=== PATIENT | male | born 1970 | race Caucasian/White ===

== ENCOUNTER 2017-03-03 16:06 | Emergency (ER) | payer MEDICARE ==
--- NOTE | 2017-03-03 17:45 | ERPHSYRPT ---
- History of Present Illness Time Seen by Provider: 03/03/17 17:39 Source: patient Exam Limitations: no limitations Patient Subjective Stated Complaint: pt he for headache that started about 1100 today was at rest when started, has migraines and is first time being seen in er for headache, sensitive to bright lights, nausea, Triage Nursing Assessment: pt alert,resp easy, skin w/d pink. pt walked in, pupils equal and reactive,moves all ext. well Physician History: Pt. with long hx. of migraines for more than 20yrs. Usually take meds for migraines, but did not work. States today with frontal throbbing headache radiate up to top of head, photophobia, associated with aura. Denied any recent illness, no cough, sinus congestion or drainage. No fever, chills, no chest or abdominal pain. No blurred vision, numbness/tingling or weakness of extremities. Pt. with CP and had R UE contracture and weakness Timing/Duration: today Quality: throbbing Head Pain Location: frontal, global Severity of Pain-Max: moderate Severity of Pain-Current: moderate Recent Head Trauma: no recent headache/trauma Modifying Factors: Improves With: exposure to light (worsens), noise (worsens) Associated Symptoms: nausea/vomiting, sensitive to light, No confusion, No dizziness, No fever/chills, No nasal congestion, No nasal drainage, No speech problems, No stiff neck Previous symptoms: same symptoms as today Home Medications: Levetiracetam [Keppra 500 mg ] 500 mg BID 03/03/17 [History] Hx Influenza Vaccination/Date Given: Yes Hx Pneumococcal Vaccination/Date Given: Yes Immunizations Up to Date: Yes - Review of Systems Constitutional: No Fever, No Chills Eyes: No Symptoms Ears, Nose, & Throat: No Symptoms Respiratory: No Cough, No Dyspnea Cardiac: No Chest Pain, No Edema, No Syncope Abdominal/Gastrointestinal: Nausea, Vomiting, No Abdominal Pain, No Diarrhea Genitourinary Symptoms: No Dysuria Musculoskeletal: No Back Pain, No Neck Pain Skin: No Rash Neurological: Headache, No Dizziness, No Focal Weakness, No Lethargy, No Paralysis, No Sensory Changes Psychological: No Symptoms Endocrine: No Symptoms All Other Systems: Reviewed and Negative - Past Medical History Neurological History: Seizures, Other Cardiac History: No Pertinent History, Hypertension Respiratory History: No Pertinent History Endocrine Medical History: No Pertinent History Musculoskeletal History: Other Other Medical History: R FOOT ANKLE SURGERY TO RECONSTRUCT ~ 5 YEARS AGO. CP - Past Surgical History Past Surgical History: Yes Other Surgical History: back sugery 02/07 - Social History Smoking Status: Never smoker Exposure to second hand smoke: No Drug Use: none Patient Lives Alone: No - Nursing Vital Signs Nursing Vital Signs: Initial Vital Signs Temperature 98.4 F Temperature Source Oral Pulse Rate 59 Respiratory Rate 80 Blood Pressure [Right Arm] 144/99 Pain Intensity 4 - Physical Exam General Appearance: no apparent distress Eye Exam: PERRL/EOMI Ears, Nose, Throat Exam: normal ENT inspection, moist mucous membranes Neck Exam: normal inspection, supple, full range of motion, No meningismus Respiratory Exam: normal breath sounds, lungs clear Cardiovascular Exam: regular rate/rhythm, normal heart sounds Gastrointestinal/Abdominal Exam: soft, No tenderness, No distention Back Exam: normal inspection, normal range of motion Mental Status Exam: alert, 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, 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 Exam: normal speech, PERRL, No facial droop Coordination/Gait Exam: normal cerebellar function Motor/Sensory Exam: no motor deficit, no sensory deficit, no pronator drift, negative Babinski's sign, weak motor strength RUE (baseline from CP), weak motor strength LLE (baseline from CP) DTR Exam: knee (R): 2+, knee (L): 2+ Skin Exam: normal color, warm, dry, No rash SpO2: 96 Oxygen Delivery: Room Air Ordered Tests: Active Orders 24 hr Category Date Time Status IV Insertion STAT Care 03/03/17 17:57 Active Medication Summary Discontinued Medications Generic Name Dose Route Start Last Admin Trade Name Monalisa PRN Reason Stop Dose Admin Diphenhydramine HCl 25 mg 03/03/17 17:50 03/03/17 18:07 Benadryl 50 Mg/Ml IV 03/03/17 17:51 25 mg STAT ONE Administration Diphenhydramine HCl Confirm 03/03/17 18:00 Benadryl 50 Mg/Ml Administered 03/03/17 18:01 Dose 50 mg .ROUTE .STK-MED ONE Ketorolac Tromethamine 30 mg 03/03/17 17:50 03/03/17 18:07 Toradol 30 Mg Injection IV 03/03/17 17:51 30 mg STAT ONE Administration Ketorolac Tromethamine Confirm 03/03/17 18:00 Toradol 30 Mg Injection Administered 03/03/17 18:01 Dose 30 mg .ROUTE .STK-MED ONE Prochlorperazine Edisylate 10 mg 03/03/17 17:50 03/03/17 18:07 Compazine 10 Mg/2 Ml IV 03/03/17 17:51 10 mg STAT ONE Administration Prochlorperazine Edisylate Confirm 03/03/17 18:00 Compazine 10 Mg/2 Ml Administered 03/03/17 18:01 Dose 10 mg .ROUTE .STK-MED ONE - Progress Progress: improved Air Movement: good Progress Note: 03/03/17 17:48 Pt. given Toradol, Benadryl and Compazine 03/03/17 19:03 Pt. feels much better and wants to go home Counseled pt/family regarding: diagnosis - Departure Time of Disposition: 19:04 Departure Disposition: Home Clinical Impression: Migraine Condition: Stable Critical Care Time: No Instructions: Headache Additional Instructions: Rest in quiet and dark room Return for worse headache, vomiting, dizziness or any problems Prescriptions: Prochlorperazine Maleate 10 mg [Compazine 10 mg] 10 mg PO Q6-8HPRN PRN #12 tablet PRN Reason: Vomiting
[2017-03-03] MEDS ORDERED: BENADRYL 50 MG/ML IV ONE (17:50)
[2017-03-03] MEDS ORDERED: Compazine 10 MG/2 ML IV ONE (17:50)
[2017-03-03] MEDS ORDERED: TORAdol 30 mg Injection IV ONE (17:50)
[2017-03-03] MEDS ORDERED: Compazine 10 MG/2 ML ONE (18:00)
[2017-03-03] MEDS ORDERED: BENADRYL 50 MG/ML ONE (18:00)
[2017-03-03] MEDS ORDERED: TORAdol 30 mg Injection ONE (18:00)
[2017-03-03 18:14] VITALS: PULSE 59
[2017-03-03 18:57] VITALS: BP 144/99
[2017-03-03 19:07] VITALS: O2SAT 96
== END 2017-03-03 19:11 | disposition home or self-care (01) ==
LOC: ED 16:06
DX: G43.909 Migraine, unspecified, not intractable, without status migrainosus (principal); R11.2 Nausea with vomiting, unspecified; R56.9 Unspecified convulsions
CPT/HCPCS: 36000; 96374; 96375; 99284; J1200; J1885

== ENCOUNTER 2017-03-06 18:41 | Emergency (ER) | payer MEDICARE ==
[2017-03-06] MEDS ORDERED: Hydromorphone 1 mg/ml Ampule IV ONE (19:04)
[2017-03-06] MEDS ORDERED: Zofran 4 MG/2 ML VIAL IV ONE (19:05)
[2017-03-06] MEDS ORDERED: Sodium Chloride 0.9% 1000 ML 1,000 ML IV SCH (19:15)
--- NOTE | 2017-03-06 19:15 | ERPHSYRPT ---
- History of Present Illness Time Seen by Provider: 03/06/17 18:55 Source: patient Exam Limitations: clinical condition Patient Subjective Stated Complaint: PT REPORTS HX OF MIGRAINES-STATES THIS ONE BEGAN JAVY 3 HRS AGO-STATES THERE IS NO DIFFERENCE BETWEEN THIS ONE ET HIS USUAL MIGRAINES-VOMIT X 1-DENIES NUMBNES SOR TINLGING Triage Nursing Assessment: PT PINK WARM ET [id number] ALL QEUSTIONS APPRIPRIATELY-PT ABLE TO MOVE ALL EXTREMITY NORMAL FOR PT-NO FACIAL DROOP NOTED Physician History: PATIENT WITH HISTORY OF MIGRAINE HEADACHES FOR 20 YEARS, COMPLAINS OF GENERALIZED HEADACHE, SINCE THIS AM, EVALUATED IN EMERGENCY 5 DAYS AGO. STATES HE HAS NO RELIED AFTER IMITREX TODAY. HAS ASSOCIATED PHOTOBIA, DENIES BLURRED SPEECH, NECK STIFFNESS, FEVER OR DIZZINESS, Timing/Duration: today Quality: throbbing Head Pain Location: frontal, temporal, occipital Severity of Pain-Max: severe Severity of Pain-Current: severe Recent Head Trauma: frequent headaches Modifying Factors: Improves With: exposure to light Previous symptoms: same symptoms as today Allergies/Adverse Reactions: No Known Drug Allergies Allergy (Unverified 03/06/17 18:50) Home Medications: Levetiracetam [Keppra 500 mg ] 500 mg PO BID 03/03/17 [History] Hx Tetanus, Diphtheria Vaccination/Date Given: Yes Hx Influenza Vaccination/Date Given: Yes Hx Pneumococcal Vaccination/Date Given: Yes Immunizations Up to Date: Yes - Review of Systems Constitutional: No Fever, No Chills Eyes: No Symptoms Ears, Nose, & Throat: No Symptoms Respiratory: No Symptoms, No Cough, No Dyspnea Cardiac: No Symptoms, No Chest Pain, No Edema, No Syncope Abdominal/Gastrointestinal: No Symptoms, Appetite Changes, No Abdominal Pain, No Nausea, No Vomiting, No Diarrhea Genitourinary Symptoms: No Dysuria Musculoskeletal: No Symptoms, No Back Pain, No Neck Pain Skin: No Symptoms, No Rash Neurological: Headache, No Dizziness, No Focal Weakness, No Sensory Changes Psychological: No Symptoms Endocrine: No Symptoms All Other Systems: Reviewed and Negative - Past Medical History Pertinent Past Medical History: Yes Neurological History: Seizures, Other Cardiac History: No Pertinent History, Hypertension Respiratory History: No Pertinent History Endocrine Medical History: No Pertinent History Musculoskeletal History: Other Other Medical History: R FOOT ANKLE SURGERY TO RECONSTRUCT ~ 5 YEARS AGO. CP - Past Surgical History Past Surgical History: Yes Other Surgical History: back sugery 02/07 - Social History Smoking Status: Never smoker Exposure to second hand smoke: No Drug Use: none Patient Lives Alone: No - Nursing Vital Signs Nursing Vital Signs: Initial Vital Signs Temperature 98.2 F Temperature Source Oral Pulse Rate 72 Respiratory Rate 16 Blood Pressure [Right Arm] 137/97 Pain Intensity 7 - Physical Exam General Appearance: no apparent distress Eye Exam: PERRL/EOMI Ears, Nose, Throat Exam: normal ENT inspection, moist mucous membranes Neck Exam: normal inspection, non-tender, supple, full range of motion, No meningismus Respiratory Exam: normal breath sounds, lungs clear Cardiovascular Exam: regular rate/rhythm, normal heart sounds Gastrointestinal/Abdominal Exam: soft, No tenderness, No distention Back Exam: normal inspection, normal range of motion Extremity Exam: normal inspection Mental Status Exam: alert, 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, 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: normal speech, PERRL, No facial droop Coordination/Gait Exam: normal cerebellar function Motor/Sensory Exam: no motor deficit, no sensory deficit DTR Exam: bicep (R): 2+, bicep (L): 2+, tricep (R): 2+, tricep (L): 2+, knee (R) : 2+, knee (L): 2+, ankle (R): 2+, ankle (L): 2+ Skin Exam: normal color, warm, dry, No rash SpO2 Interpretation: normal SpO2: 99 Oxygen Delivery: Room Air - CT Exams Head CT Interpretation: Tele-radiologist Report (STABLE CONGENITAL BRAIN MALFORMATION , 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 WITH HEMISPHERIC ASYMMETRY) Ordered Tests: Active Orders 24 hr Category Date Time Status IV Insertion STAT Care 03/06/17 19:08 Active HEAD WITHOUT CONTRAST [CT] Stat Exams 03/06/17 19:10 Taken Medication Summary Generic Name Dose Route Start Last Admin Trade Name Freq PRN Reason Stop Dose Admin Sodium Chloride 1,000 mls @ 100 mls/hr 03/06/17 19:15 03/06/17 19:20 Sodium Chloride 0.9% 1000 Ml IV 04/05/17 19:14 100 mls/hr .Q10H MARKO Administration Discontinued Medications Generic Name Dose Route Start Last Admin Trade Name Freq PRN Reason Stop Dose Admin Hydromorphone HCl 1 mg 03/06/17 19:04 03/06/17 19:20 Hydromorphone 1 Mg/Ml Ampule IV 03/06/17 19:05 1 mg STAT ONE Administration Hydromorphone HCl Confirm 03/06/17 19:17 Hydromorphone 1 Mg/Ml Ampule Administered 03/06/17 19:18 Dose 1 mg .ROUTE .STK-MED ONE Ondansetron HCl 4 mg 03/06/17 19:05 03/06/17 19:20 Zofran 4 Mg/2 Ml Vial IV 03/06/17 19:06 4 mg STAT ONE Administration Ondansetron HCl Confirm 03/06/17 19:17 Zofran 4 Mg/2 Ml Vial Administered 03/06/17 19:18 Dose 4 mg .ROUTE .STK-MED ONE - Progress Progress: improved Progress Note: 03/06/17 20:01 PATIENT GIVEN IV NORMAL SALINE 100ML/HR, ZOFRAN 4MG, DILAUDID 1MG IV Blood Culture(s) Obtained: No Counseled pt/family regarding: diagnosis, need for follow-up, rad results - Departure Time of Disposition: 21:35 Departure Disposition: Home Clinical Impression: MIGRAINE CEPHALGIA Condition: Stable Critical Care Time: No Referrals: ARCHIE SIDHU [Primary Care Provider] - Instructions: Headache Additional Instructions: ULTRAM 50MG EVERY 4 HOURS FOR PAIN NEEDED. CONSULT YOUR FAMILY PHYSICIAN AND NEUROLOGIST FOR FOLLOWUP. Prescriptions: Tramadol HCl 50 mg [Ultram 50 mg] 50 mg PO Q4HPRN PRN #10 tablet PRN Reason: Pain
[2017-03-06] MEDS ORDERED: Sodium Chloride 0.9% 1000 ML 1,000 ML ONE (19:17)
[2017-03-06] MEDS ORDERED: Hydromorphone 1 mg/ml Ampule ONE (19:17)
[2017-03-06] MEDS ORDERED: Zofran 4 MG/2 ML VIAL ONE (19:17)
[2017-03-06] MEDS ORDERED: TORAdol 30 mg Injection IV ONE (20:22)
[2017-03-06] MEDS ORDERED: TORAdol 30 mg Injection ONE (20:27)
[2017-03-06 20:47] VITALS: BP 124/92; PULSE 64; O2SAT 97
--- NOTE | 2017-03-07 08:40 | XRAY ---
Indication: Migraine headache. History of seizure. Multiple contiguous axial images obtained through the head without contrast. Comparison: June 03, 2011. Again the right cerebral hemisphere is larger than the left. Stable asymmetric right lateral ventricle enlargement, corpus callosal agenesis/hypogenesis, and left hemispheric subfalcine extension into the right hemisphere. No acute intracranial hemorrhage or abnormal extra-axial fluid collection. Fourth ventricle is midline. Bony calvarium intact. Visualized paranasal sinuses and mastoid air cells are pneumatized and clear. Impression: 1. Stable congenital brain malformation as detailed. 2. No new or acute intracranial abnormalities. Comment: Preliminary interpretation was made by [facility]. No discrepancy. CTDI 67.60
== END 2017-03-06 20:47 | disposition home or self-care (01) ==
LOC: ED 18:41
DX: G43.909 Migraine, unspecified, not intractable, without status migrainosus (principal); Z87.898 Personal history of other specified conditions
CPT/HCPCS: 36000; 70450; 96360; 96374; 96375; 99284; J1170; J1885; J2405

== ENCOUNTER 2017-03-10 19:54 | Emergency (ER) | payer MEDICARE ==
[2017-03-10] MEDS ORDERED: Sodium Chloride 0.9% 1000 ML 1,000 ML IV STA (20:30)
[2017-03-10] MEDS ORDERED: Compazine 10 MG/2 ML IV ONE (20:30)
[2017-03-10] MEDS ORDERED: BENADRYL 50 MG/ML IV ONE (20:30)
[2017-03-10] MEDS ORDERED: DECADRON 10MG INJ. IV ONE (20:31)
--- NOTE | 2017-03-10 20:36 | ERPHSYRPT ---
- History of Present Illness Time Seen by Provider: 03/10/17 20:22 Source: patient Patient Subjective Stated Complaint: pt here for headache, pt has chronic headaches,states is unrelieved by meds Triage Nursing Assessment: pt alert, walked in, resp easy, skin w/d. pupils equal Physician History: CC: headache hx: 46 y/o patient of HALLE Sidhu and Dr Larson. He has hx of migraine headaches for 20 years. Worse in past 3 weeks. He has daily headache. Photophobia. No fever or chills. No N/T/W. No injury. He took his imitrex twice today and had no relief so came to ER. He has been to ER twice in past three weeks. He felt better after meds briefly. He takes vimpat and keppra for seizures. Headache persists today so came to ER. Headache typical for his normal headaches. Timing/Duration: week(s) (3) Head Pain Location: global Severity of Pain-Max: severe Severity of Pain-Current: severe Recent Head Trauma: no recent headache/trauma Allergies/Adverse Reactions: No Known Drug Allergies Allergy (Verified 03/10/17 20:06) Home Medications: Levetiracetam [Keppra 500 mg ] 500 mg PO BID 03/03/17 [History] Hx Tetanus, Diphtheria Vaccination/Date Given: Yes Hx Influenza Vaccination/Date Given: Yes Hx Pneumococcal Vaccination/Date Given: Yes Immunizations Up to Date: Yes - Review of Systems Constitutional: No Fever, No Chills Eyes: Photophobia, No Vision Changes Ears, Nose, & Throat: No Symptoms Respiratory: No Symptoms Cardiac: No Symptoms Abdominal/Gastrointestinal: Nausea, No Vomiting Musculoskeletal: No Back Pain, No Neck Pain Skin: No Rash Neurological: Headache, No Dizziness, No Focal Weakness, No Parasthesia All Other Systems: Reviewed and Negative - Past Medical History Pertinent Past Medical History: Yes Neurological History: Seizures, Other Cardiac History: No Pertinent History, Hypertension Respiratory History: No Pertinent History Endocrine Medical History: No Pertinent History Musculoskeletal History: Other Other Medical History: R FOOT ANKLE SURGERY TO RECONSTRUCT ~ 5 YEARS AGO. CP - Past Surgical History Past Surgical History: Yes Other Surgical History: back sugery 02/07 - Social History Smoking Status: Never smoker Exposure to second hand smoke: No Drug Use: none Patient Lives Alone: No - Nursing Vital Signs Nursing Vital Signs: Initial Vital Signs Temperature 98.4 F Temperature Source Oral Pulse Rate 80 Respiratory Rate 16 Blood Pressure [Right Arm] 155/86 Pain Intensity 9 - Physical Exam General Appearance: alert Eye Exam: PERRL/EOMI Ears, Nose, Throat Exam: normal ENT inspection, moist mucous membranes Neck Exam: normal inspection, non-tender, supple Respiratory Exam: normal breath sounds, lungs clear Cardiovascular Exam: regular rate/rhythm, No murmur Gastrointestinal/Abdominal Exam: soft, No tenderness, No distention Extremity Exam: normal inspection, normal range of motion Mental Status Exam: alert, 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, 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 Exam: normal hearing, normal speech, PERRL Motor/Sensory Exam: no motor deficit, no sensory deficit Skin Exam: normal color, warm, dry, No rash SpO2 Interpretation: normal SpO2: 95 Oxygen Delivery: Room Air - Course Nursing assessment & vital signs reviewed: Yes Ordered Tests: Active Orders 24 hr Category Date Time Status IV Insertion STAT Care 03/10/17 20:30 Active Oxygen-ED Only NON-REBREATHER 100% Care 03/10/17 20:30 Active CBC W DIFF Stat Lab 03/10/17 20:35 Completed CMP Stat Lab 03/10/17 20:35 Completed Erythrocyte Sedimentation Rate Stat Lab 03/10/17 20:35 Completed VENOUS BLOOD GAS Urgent Lab 03/10/17 20:30 Completed Medication Summary Generic Name Dose Route Start Last Admin Trade Name Freq PRN Reason Stop Dose Admin Sodium Chloride 1,000 mls @ 999 mls/hr 03/10/17 20:30 03/10/17 20:47 Sodium Chloride 0.9% 1000 Ml IV 03/10/17 21:30 999 mls/hr .Q1H1M STA Administration Discontinued Medications Generic Name Dose Route Start Last Admin Trade Name Freq PRN Reason Stop Dose Admin Dexamethasone Sodium Phosphate 10 mg 03/10/17 20:31 03/10/17 20:47 Decadron 10mg Inj. IV 03/10/17 20:32 10 mg STAT ONE Administration Dexamethasone Sodium Phosphate Confirm 03/10/17 20:41 Decadron 10mg Inj. Administered 03/10/17 20:42 Dose 10 mg .ROUTE .STK-MED ONE Diphenhydramine HCl 25 mg 03/10/17 20:30 03/10/17 20:46 Benadryl 50 Mg/Ml IV 03/10/17 20:31 25 mg STAT ONE Administration Diphenhydramine HCl Confirm 03/10/17 20:40 Benadryl 50 Mg/Ml Administered 03/10/17 20:41 Dose 50 mg .ROUTE .STK-MED ONE Sodium Chloride Confirm 03/10/17 20:41 Sodium Chloride 0.9% 1000 Ml Administered 03/10/17 20:42 Dose 1,000 mls @ ud .ROUTE .STK-MED ONE Prochlorperazine Edisylate 10 mg 03/10/17 20:30 03/10/17 20:47 Compazine 10 Mg/2 Ml IV 03/10/17 20:31 10 mg STAT ONE Administration Prochlorperazine Edisylate Confirm 03/10/17 20:41 Compazine 10 Mg/2 Ml Administered 03/10/17 20:42 Dose 10 mg .ROUTE .STK-MED ONE Lab/Rad Data: Laboratory Result Diagrams 03/10/17 20:35 03/10/17 20:35 Laboratory Results 03/10/17 03/10/17 03/10/17 Range/Units 20:35 20:35 20:30 WBC 7.5 (4.0-10.5) K/mm3 RBC 4.42 (4.1-5.6) M/mm3 Hgb 14.2 (12.5-18.0) gm/dl Hct 41.0 L (42-50) % MCV 92.8 (78-100) fl MCH 32.1 H (26-32) pg MCHC 34.6 (32-36) g/dl RDW 12.1 (11.5-14.0) % Plt Count 193 (150-450) K/mm3 MPV 10.2 H (6-9.5) fl Gran % 53.2 (36.0-66.0) % Lymphocytes % 36.8 (24.0-44.0) % Monocytes % 7.3 (0.0-12.0) % Eosinophils % 2.4 (0.00-5.0) % Basophils % 0.3 (0.0-0.4) % Basophils # 0.02 (0-0.4) ESR 4 (0-15) mm/hr VBG pH 7.42 (7.32-7.42) VBG pCO2 at Pat Temp 42 (42-55) mm/Hg VBG pO2 at Pat Temp 67 H (25-40) mm/Hg VBG HCO3 27.2 (22-28) meq/L VBG O2 Sat (Giuseppe) 97.0 (95-100) VBG Base Excess 2.4 H (-2.0-2.0) VBG Hemoglobin 14.5 VBG Carboxyhemoglobin 1.8 (0.0-6.9) % T HGB POC Potassium 3.1 L (3.5-5.1) Sodium 143 (136-145) mEq/L Potassium 3.2 L (3.5-5.1) mEq/L Chloride 107 (98-107) mEq/L Carbon Dioxide 26.6 (21-32) mEq/L Anion Gap 13.0 (5-15) MEQ/L BUN 22 H (9-20) mg/dL Creatinine 1.44 H (0.55-1.30) mg/dl Estimated GFR 56 ML/MIN Glucose 130 H (70-110) MG/DL Calcium 8.7 (8.5-10.1) mg/dL Total Bilirubin 0.3 (0.2-1.0) mg/dL AST 18 (15-37) U/L ALT 31 (12-78) U/L Alkaline Phosphatase 71 (46-116) U/L Serum Total Protein 7.1 (6.4-8.2) gm/dL Albumin 3.6 (3.4-5.0) g/dL - Progress Progress Note: 03/10/17 20:35 Will try oxygen. No eye redness or wateriness to suggest clusters but this does seem like a cluster in time. 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 He tolerated benadryl and compazine in past visit. Will repeat and will add decadron. 03/10/17 21:12 Headache better with meds. No change with O2. IVF given. Will release. Advised he follow up with HALLE Sidhu regarding creat and Dr Larson regarding headaches. Counseled pt/family regarding: lab results, diagnosis, need for follow-up - Departure Time of Disposition: 21:13 Departure Disposition: Home Clinical Impression: Headache Qualifiers: Headache type: new daily persistent Qualified Code(s): G44.52 - New daily persistent headache (NDPH) Condition: Stable Critical Care Time: No Referrals: ARCHIE SIDHU [Primary Care Provider] - DAVE LARSON [CONSULTING PHYSICIAN] - Instructions: Headache Additional Instructions: HEADACHE 1. After discharge from the emergency department, you should rest at home in a cool, dark, quiet place for 12-24 hours. 2. If any of the following signs or symptoms are noticed, you should be re- evaluated right away: A. Visual changes B. Stiff Neck C. Change in quality or location of pain D. Fever E. Recurrent vomiting 3. If pain medications were prescribed or given, they may cause drowsiness. Call to see HALLE Sidhu regarding kidney test. Call to see Dr Larson regarding headaches.
[2017-03-10] MEDS ORDERED: BENADRYL 50 MG/ML ONE (20:40)
[2017-03-10] MEDS ORDERED: Sodium Chloride 0.9% 1000 ML 1,000 ML ONE (20:41)
[2017-03-10] MEDS ORDERED: DECADRON 10MG INJ. ONE (20:41)
[2017-03-10] MEDS ORDERED: Compazine 10 MG/2 ML ONE (20:41)
[2017-03-10 20:42] LABS: BASOPHIL % 0.3 % (0.0-0.4); Eosinophil % 2.4 % (0.00-5.0); Granulocytes % 53.2 % (36.0-66.0); Lymphocytes % 36.8 % (24.0-44.0); Mean Cell Volume 92.8 fl (78-100); Mean Corpuscular Hemoglobin 32.1 pg (26-32); Mean Platelet Volume 10.2 fl (6-9.5); Monocytes % 7.3 % (0.0-12.0); Platelet Count 193 K/mm3 (150-450); Red Blood Count 4.42 M/mm3 (4.1-5.6); Red Cell Distribution Width 12.1 % (11.5-14.0); White Blood Count 7.5 K/mm3 (4.0-10.5)
[2017-03-10 20:49] LABS: VBG BASE EXCESS 2.4 (-2.0-2.0); VBG CARBOXYHEMOGLOBIN 1.8 % T HGB (0.0-6.9); VBG HCO3- 27.2 meq/L (22-28); VBG HEMOGLOBIN 14.5; VBG POTASSIUM 3.1 (3.5-5.1); VBG pH 7.42 (7.32-7.42)
[2017-03-10 20:50] VITALS: BP 155/86; PULSE 80
[2017-03-10 20:58] LABS: Erythrocyte Sedimentation Rate 4 mm/hr (0-15)
[2017-03-10 21:02] LABS: ALBUMIN 3.6 g/dL (3.4-5.0); BILIRUBIN,TOTAL 0.3 mg/dL (0.2-1.0); Carbon Dioxide 26.6 mEq/L (21-32); Potassium 3.2 mEq/L (3.5-5.1); Total Protein 7.1 gm/dL (6.4-8.2)
[2017-03-10 21:14] VITALS: O2SAT 95
== END 2017-03-10 21:20 | disposition home or self-care (01) ==
LOC: ED 19:54
DX: G44.52 New daily persistent headache (NDPH) (principal); Z87.898 Personal history of other specified conditions
CPT/HCPCS: 36000; 36415; 80053; 82805; 85025; 85652; 96360; 96374; 96375; 99284; J1100; J1200

== ENCOUNTER 2017-03-13 15:43 | Emergency (ER) | payer MEDICARE ==
[2017-03-13] MEDS ORDERED: BENADRYL 50 MG/ML IV ONE (16:07)
[2017-03-13] MEDS ORDERED: Compazine 10 MG/2 ML IV ONE (16:07)
[2017-03-13] MEDS ORDERED: Sodium Chloride 0.9% 1000 ML 1,000 ML IV STA (16:07)
[2017-03-13] MEDS ORDERED: Compazine 10 MG/2 ML ONE (16:11)
[2017-03-13] MEDS ORDERED: BENADRYL 50 MG/ML ONE (16:11)
[2017-03-13] MEDS ORDERED: Sodium Chloride 0.9% 1000 ML 1,000 ML ONE (16:11)
--- NOTE | 2017-03-13 16:13 | ERPHSYRPT ---
- History of Present Illness Time Seen by Provider: 03/13/17 15:55 Source: patient Patient Subjective Stated Complaint: headache since this morning Triage Nursing Assessment: all over top of head and behind eyes since this morning. no blurred or double vision. nausea with vomiting x1. was seen last week in er for same s/s--did not follow up with pcp Physician History: CC: headache Hx: 46 y/o patient of HALLE Sidhu and Dr Larson. He has hx of migraine headaches. He uses imitrex. He has hx of seizure disorder and takes medication. 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 He has had worsened headaches for the past 3-4 weeks. He has been to ER twice. Had normal labs. He had CT showing agenesis of corpus collosum but nothing acute. Timing/Duration: gradual onset (today worse again and no relieved with imitrex X 2) Allergies/Adverse Reactions: No Known Drug Allergies Allergy (Verified 03/13/17 15:52) Home Medications: Levetiracetam [Keppra 500 mg ] 500 mg PO BID 03/03/17 [History] Lacosamide [Vimpat] 150 mg PO BID 03/13/17 [History] Losartan Potassium 50 mg [Cozaar 50 MG] 50 mg PO DAILY 03/13/17 [History] Sumatriptan Succinate [Imitrex] 100 mg PO UD 03/13/17 [History] Hx Tetanus, Diphtheria Vaccination/Date Given: Yes Hx Influenza Vaccination/Date Given: Yes Hx Pneumococcal Vaccination/Date Given: Yes Immunizations Up to Date: Yes - Review of Systems Constitutional: No Fever, No Chills Eyes: Vision Changes (blurry) Respiratory: No Symptoms Cardiac: No Symptoms Abdominal/Gastrointestinal: Nausea, No Vomiting Skin: No Decubiti, No Rash Neurological: Headache, No Focal Weakness, No Parasthesia All Other Systems: Reviewed and Negative - Past Medical History Pertinent Past Medical History: Yes Neurological History: Seizures, Other ENT History: No Pertinent History Cardiac History: No Pertinent History, Hypertension Respiratory History: No Pertinent History Endocrine Medical History: No Pertinent History Musculoskeletal History: Other Other Medical History: R FOOT ANKLE SURGERY TO RECONSTRUCT ~ 5 YEARS AGO. CP - Past Surgical History Past Surgical History: Yes Other Surgical History: [facility] - Social History Smoking Status: Never smoker Exposure to second hand smoke: No Drug Use: none Patient Lives Alone: No - Nursing Vital Signs Nursing Vital Signs: Initial Vital Signs Temperature 97.7 F Temperature Source Oral Pulse Rate 55 Respiratory Rate 18 Blood Pressure [Left Arm] 137/75 Pain Intensity 8 - Physical Exam General Appearance: alert Eye Exam: PERRL/EOMI Ears, Nose, Throat Exam: normal ENT inspection, moist mucous membranes Neck Exam: normal inspection, non-tender, supple Respiratory Exam: normal breath sounds Cardiovascular Exam: regular rate/rhythm Gastrointestinal/Abdominal Exam: soft, No tenderness, No distention Extremity Exam: normal inspection, normal range of motion Mental Status Exam: alert, 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, cooperative Motor/Sensory Exam: no motor deficit, no sensory deficit Skin Exam: warm, dry SpO2 Interpretation: normal SpO2: 97 Oxygen Delivery: Room Air - Course Nursing assessment & vital signs reviewed: Yes Ordered Tests: Active Orders 24 hr Category Date Time Status IV Insertion STAT Care 03/13/17 16:07 Active Oxygen-ED Only NON-REBREATHER 100% Care 03/13/17 16:07 Active Medication Summary Generic Name Dose Route Start Last Admin Trade Name Freq PRN Reason Stop Dose Admin Sodium Chloride 1,000 mls @ 999 mls/hr 03/13/17 16:07 03/13/17 16:14 Sodium Chloride 0.9% 1000 Ml IV 03/13/17 17:07 999 mls/hr .Q1H1M STA Administration Discontinued Medications Generic Name Dose Route Start Last Admin Trade Name Freq PRN Reason Stop Dose Admin Diphenhydramine HCl 25 mg 03/13/17 16:07 03/13/17 16:13 Benadryl 50 Mg/Ml IV 03/13/17 16:08 25 mg STAT ONE Administration Diphenhydramine HCl Confirm 03/13/17 16:11 Benadryl 50 Mg/Ml Administered 03/13/17 16:12 Dose 50 mg .ROUTE .STK-MED ONE Sodium Chloride Confirm 03/13/17 16:11 Sodium Chloride 0.9% 1000 Ml Administered 03/13/17 16:12 Dose 1,000 mls @ ud .ROUTE .STK-MED ONE Prochlorperazine Edisylate 10 mg 03/13/17 16:07 03/13/17 16:13 Compazine 10 Mg/2 Ml IV 03/13/17 16:08 10 mg STAT ONE Administration Prochlorperazine Edisylate Confirm 03/13/17 16:11 Compazine 10 Mg/2 Ml Administered 03/13/17 16:12 Dose 10 mg .ROUTE .STK-MED ONE - Progress Progress Note: 03/13/17 16:13 No sign of acute problem. Appears more like exacerbation of migraines or cluster headaches. He had decadron last visit. He gets improvement with compazine and benadryl. 03/13/17 16:57 Headache gone after meds. No nuchal rigidity. No fever. Advised call Dr Larson tomorrow for further headache care. Counseled pt/family regarding: diagnosis, need for follow-up - Departure Time of Disposition: 16:58 Departure Disposition: Home Clinical Impression: Headache Qualifiers: Headache type: unspecified Headache chronicity pattern: episodic headache Intractability: intractable Qualified Code(s): R51 - Headache Condition: Stable Critical Care Time: No Referrals: ARCHIE SIDHU [Primary Care Provider] - DAVE LARSON [CONSULTING PHYSICIAN] - Instructions: Headache Additional Instructions: HEADACHE 1. After discharge from the emergency department, you should rest at home in a cool, dark, quiet place for 12-24 hours. 2. If any of the following signs or symptoms are noticed, you should be re- evaluated right away: A. Visual changes B. Stiff Neck C. Change in quality or location of pain D. Fever E. Recurrent vomiting 3. If pain medications were prescribed or given, they may cause drowsiness. No driving tonite. Call Dr Larson tomorrow. Return for fever or confusion.
[2017-03-13 17:07] VITALS: BP 132/69; PULSE 69; O2SAT 98
== END 2017-03-13 17:05 | disposition home or self-care (01) ==
LOC: ED 15:43
DX: R51 Headache (principal); R11.2 Nausea with vomiting, unspecified; R56.9 Unspecified convulsions; Z79.899 Other long term (current) drug therapy
CPT/HCPCS: 36000; 96360; 96374; 96375; 99282; 99284; J1200

== ENCOUNTER 2017-03-22 14:39 | Emergency (ER) | payer MEDICARE ==
[2017-03-22] MEDS ORDERED: LOPRESSOR 5 MG/5 ML INJECTION IV ONE ×2 (14:49→14:57)
[2017-03-22] MEDS ORDERED: Nitrostat 0.4 MG (ED) SL ONE ×2 (14:49→15:22)
[2017-03-22] MEDS ORDERED: BABY ASPIRIN 81 MG CHEW PO ONE (14:49)
--- NOTE | 2017-03-22 14:51 | ERPHSYRPT ---
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 STATES PAIN SCALE 10/10. Timing/Duration: today Activities at Onset: none Quality: sharpness Location: substernal Chest Pain Radiation: no radiation Severity of Pain-Max: severe Severity of Pain-Current: severe Modifying Factors: Improves With: nothing Associated Symptoms: shortness of breath, diaphoresis Prior Chest Pain/Cardiac Workup: angina, cardiac cath Nitro Today/Relief: no nitro taken today, provided by ED Aspirin Treatment Today: no aspirin today, 81 mg x 4, provided by ED Allergies/Adverse Reactions: No Known Drug Allergies Allergy (Verified 03/22/17 14:45) Home Medications: Levetiracetam [Keppra 500 mg ] 500 mg PO BID 03/03/17 [History] Lacosamide [Vimpat] 150 mg PO BID 03/13/17 [History] Losartan Potassium 50 mg [Cozaar 50 MG] 50 mg PO DAILY 03/13/17 [History] Sumatriptan Succinate [Imitrex] 100 mg PO UD 03/13/17 [History] Hx Tetanus, Diphtheria Vaccination/Date Given: Yes Hx Influenza Vaccination/Date Given: Yes Hx Pneumococcal Vaccination/Date Given: Yes Immunizations Up to Date: Yes - Review of Systems Constitutional: No Fever, No Chills Eyes: No Symptoms Ears, Nose, & Throat: No Symptoms Respiratory: Dyspnea, No Cough Cardiac: Chest Pain, No Edema, No Syncope Abdominal/Gastrointestinal: No Symptoms, No Abdominal Pain, No Nausea, No Vomiting, No Diarrhea Genitourinary Symptoms: No Symptoms, No Dysuria Musculoskeletal: No Symptoms, No Back Pain, No Neck Pain Skin: No Symptoms, No Rash Neurological: No Dizziness, No Focal Weakness, No Sensory Changes Psychological: No Symptoms Endocrine: No Symptoms All Other Systems: Reviewed and Negative - Past Medical History Pertinent Past Medical History: Yes Neurological History: Seizures, Other ENT History: No Pertinent History Cardiac History: No Pertinent History, Hypertension Respiratory History: No Pertinent History Endocrine Medical History: No Pertinent History Musculoskeletal History: Other Other Medical History: R FOOT ANKLE SURGERY TO RECONSTRUCT ~ 5 YEARS AGO. CP - Past Surgical History Past Surgical History: Yes Other Surgical History: back sugery 02/07 - Social History Smoking Status: Never smoker Exposure to second hand smoke: No Drug Use: none Patient Lives Alone: No - Nursing Vital Signs Nursing Vital Signs: Initial Vital Signs Temperature 98.5 F Temperature Source Oral Pulse Rate [] 80 Pulse Rate 59 Respiratory Rate 20 Blood Pressure [] 120/77 Pain Intensity 4 - Physical Exam General Appearance: no apparent distress, alert Eye Exam: PERRL/EOMI, eyes nml inspection Ears, Nose, Throat Exam: normal ENT inspection, moist mucous membranes Neck Exam: normal inspection, non-tender, supple, full range of motion Respiratory Exam: normal breath sounds, lungs clear, No respiratory distress Cardiovascular Exam: regular rate/rhythm, normal heart sounds Gastrointestinal/Abdomen Exam: soft, No tenderness, No mass Back Exam: normal inspection, No CVA tenderness, No vertebral tenderness Extremity Exam: normal inspection, normal range of motion Neurologic Exam: alert, 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, cooperative, normal mood/affect, sensation nml, No motor deficits Skin Exam: normal color, warm, dry SpO2: 97 Oxygen Delivery: Room Air - Course EKG Interpreted by Me: RATE, Sinus Rhythm, Sinus Tach, NORMAL AXIS, Non- specific ST Changes - Radiology Exams Chest X-ray Interpretation: Discussed w/ radiologist, Negative Ordered Tests: Medication Summary Discontinued Medications Generic Name Dose Route Start Last Admin Trade Name Jhonq PRN Reason Stop Dose Admin Aspirin 324 mg 03/22/17 14:49 03/22/17 14:55 Baby Aspirin 81 Mg Chew PO 03/22/17 14:50 324 mg STAT ONE Administration Sodium Chloride 1,000 mls @ 100 mls/hr 03/22/17 15:00 03/22/17 14:59 Sodium Chloride 0.9% 1000 Ml IV 04/21/17 14:59 100 mls/hr .Q10H MARKO Administration Sodium Chloride Confirm 03/22/17 14:57 Sodium Chloride 0.9% 1000 Ml Administered 03/22/17 14:58 Dose 1,000 mls @ ud .ROUTE .STK-MED ONE Metoprolol Tartrate 5 mg 03/22/17 14:49 03/22/17 14:59 Lopressor 5 Mg/5 Ml Injection IV 03/22/17 14:50 5 mg STAT ONE Administration Metoprolol Tartrate Confirm 03/22/17 14:57 Lopressor 5 Mg/5 Ml Injection Administered 03/22/17 14:58 Dose 5 mg IV .STK-MED ONE Morphine Sulfate 8 mg 03/22/17 15:22 03/22/17 15:32 Morphine Sulfate 10 Mg/Ml IV 03/22/17 15:23 8 mg STAT ONE Administration Morphine Sulfate Confirm 03/22/17 15:29 Morphine Sulfate 10 Mg/Ml Administered 03/22/17 15:30 Dose 10 mg .ROUTE .STK-MED ONE Nitroglycerin 0.4 mg 03/22/17 14:49 03/22/17 14:55 Nitrostat 0.4 Mg (Ed) SL 03/22/17 14:50 0.4 mg STAT ONE Administration Nitroglycerin 0.4 mg 03/22/17 15:22 03/22/17 15:27 Nitrostat 0.4 Mg (Ed) SL 03/22/17 15:23 0.4 mg STAT ONE Administration Nitroglycerin 1 gm 03/22/17 16:20 03/22/17 16:26 Nitro-Bid 2% Ud Packets TOP 03/22/17 16:21 1 gm STAT ONE Administration Nitroglycerin Confirm 03/22/17 16:24 Nitro-Bid 2% Ud Packets Administered 03/22/17 16:25 Dose 1 gm .ROUTE .STK-MED ONE Ondansetron HCl 4 mg 03/22/17 15:22 03/22/17 15:32 Zofran 4 Mg/2 Ml Vial IV 03/22/17 15:23 4 mg STAT ONE Administration Ondansetron HCl Confirm 03/22/17 15:28 Zofran 4 Mg/2 Ml Vial Administered 03/22/17 15:29 Dose 4 mg .ROUTE .STK-MED ONE Lab/Rad Data: Laboratory Result Diagrams 03/22/17 14:45 03/22/17 14:45 Laboratory Results 03/22/17 03/22/17 03/22/17 Range/Units 14:45 14:45 14:45 WBC (4.0-10.5) K/mm3 RBC (4.1-5.6) M/mm3 Hgb (12.5-18.0) gm/dl Hct (42-50) % MCV (78-100) fl MCH (26-32) pg MCHC (32-36) g/dl RDW (11.5-14.0) % Plt Count (150-450) K/mm3 MPV (6-9.5) fl Gran % (36.0-66.0) % Lymphocytes % (24.0-44.0) % Monocytes % (0.0-12.0) % Eosinophils % (0.00-5.0) % Basophils % (0.0-0.4) % Basophils # (0-0.4) INR 1.06 (0.8-3.0) D-Dimer 0.200 (0.00-0.49) mg/L Sodium 140 (136-145) mEq/L Potassium 3.2 L (3.5-5.1) mEq/L Chloride 105 (98-107) mEq/L Carbon Dioxide 26.7 (21-32) mEq/L Anion Gap 11.6 (5-15) MEQ/L BUN 17 (9-20) mg/dL Creatinine 1.28 (0.55-1.30) mg/dl Estimated GFR > 60 ML/MIN Glucose 111 H (70-110) MG/DL Calcium 8.8 (8.5-10.1) mg/dL Total Bilirubin 0.50 (0.2-1.0) mg/dL AST 22 (15-37) U/L ALT 45 (12-78) U/L Alkaline Phosphatase 68 (46-116) U/L Troponin I < 0.017 (0.000-0.056) ng/ml Serum Total Protein 8.1 (6.4-8.2) gm/dL Albumin 4.0 (3.4-5.0) g/dL 03/22/17 Range/Units 14:45 WBC 7.5 (4.0-10.5) K/mm3 RBC 4.68 (4.1-5.6) M/mm3 Hgb 14.9 (12.5-18.0) gm/dl Hct 43.3 (42-50) % MCV 92.5 (78-100) fl MCH 31.8 (26-32) pg MCHC 34.4 (32-36) g/dl RDW 12.3 (11.5-14.0) % Plt Count 217 (150-450) K/mm3 MPV 10.2 H (6-9.5) fl Gran % 62.9 (36.0-66.0) % Lymphocytes % 26.5 (24.0-44.0) % Monocytes % 8.6 (0.0-12.0) % Eosinophils % 1.7 (0.00-5.0) % Basophils % 0.3 (0.0-0.4) % Basophils # 0.02 (0-0.4) INR (0.8-3.0) D-Dimer (0.00-0.49) mg/L Sodium (136-145) mEq/L Potassium (3.5-5.1) mEq/L Chloride (98-107) mEq/L Carbon Dioxide (21-32) mEq/L Anion Gap (5-15) MEQ/L BUN (9-20) mg/dL Creatinine (0.55-1.30) mg/dl Estimated GFR ML/MIN Glucose (70-110) MG/DL Calcium (8.5-10.1) mg/dL Total Bilirubin (0.2-1.0) mg/dL AST (15-37) U/L ALT (12-78) U/L Alkaline Phosphatase (46-116) U/L Troponin I (0.000-0.056) ng/ml Serum Total Protein (6.4-8.2) gm/dL Albumin (3.4-5.0) g/dL - Progress Progress: improved Progress Note: 03/22/17 15:01 PATIENT GIVEN IV NORMAL SALINE 100ML/HR, BABY ASA X 4 ORALLY, NTG 0.4 MG SL X 3 , LOPRESSOR 5MG IV, MORPHINE 8MG IV, CHEST PAIN IMPROVED FROM 10/10 TO SCALE 4/ 10, NITROPASTE 1" APPLIED TO ANTERIOR CHEST WALL 03/22/17 16:59 Discussed with .: Other (DISCUSSED WITH DR LANDA HOSPITALIST AT [facility] AT [address] [facility] ) - Departure Time of Disposition: 19:20 Departure Disposition: Transfer Clinical Impression: ACUTE CHEST PAIN Condition: Stable Critical Care Time: No Referrals: ARCHIE SIDHU [Primary Care Provider] -
[2017-03-22] MEDS ORDERED: Sodium Chloride 0.9% 1000 ML 1,000 ML ONE (14:57)
[2017-03-22 15:00] LABS: BASOPHIL % 0.3 % (0.0-0.4); Eosinophil % 1.7 % (0.00-5.0); Granulocytes % 62.9 % (36.0-66.0); Lymphocytes % 26.5 % (24.0-44.0); Mean Cell Volume 92.5 fl (78-100); Mean Corpuscular Hemoglobin 31.8 pg (26-32); Mean Platelet Volume 10.2 fl (6-9.5); Monocytes % 8.6 % (0.0-12.0); Platelet Count 217 K/mm3 (150-450); Red Blood Count 4.68 M/mm3 (4.1-5.6); Red Cell Distribution Width 12.3 % (11.5-14.0); White Blood Count 7.5 K/mm3 (4.0-10.5)
[2017-03-22] MEDS ORDERED: Sodium Chloride 0.9% 1000 ML 1,000 ML IV SCH (15:00)
[2017-03-22 15:18] LABS: INR 1.06 (0.8-3.0); PROTIME 11.8 SECONDS (8.83-12.87)
[2017-03-22] MEDS ORDERED: MORPHINE SULFATE 10 MG/ML IV ONE (15:22)
[2017-03-22] MEDS ORDERED: Zofran 4 MG/2 ML VIAL IV ONE (15:22)
[2017-03-22 15:27] LABS: ALKALINE PHOSPHATASE 68 U/L (46-116); ANION GAP 11.6 MEQ/L (5-15); BLOOD UREA NITROGEN 17 mg/dL (9-20); CHLORIDE 105 mEq/L (98-107); Carbon Dioxide 26.7 mEq/L (21-32); Glucose 111 MG/DL (70-110); Potassium 3.2 mEq/L (3.5-5.1); SGOT/AST 22 U/L (15-37); SGPT/ALT 45 U/L (12-78); SODIUM 140 mEq/L (136-145); Total Protein 8.1 gm/dL (6.4-8.2)
[2017-03-22] MEDS ORDERED: Zofran 4 MG/2 ML VIAL ONE (15:28)
[2017-03-22] MEDS ORDERED: MORPHINE SULFATE 10 MG/ML ONE (15:29)
--- NOTE | 2017-03-22 15:50 | XRAY ---
Exam: AP upright portable chest film from 1456 hrs. on 03/22/2017. Comparison: AP portable chest film from 09/12/2010. Indication: Chest pain, dyspnea, history of "leaky valve". Findings: Lung volumes appear a bit less than average. There is slight elevation of right hemidiaphragm representing no change.. The transverse heart size appears within normal limits and displays a mild left ventricular contour representing no change. Small granulomatous calcifications overlie the right hilum representing no change. No air space infiltrates, vascular congestion, pneumothorax, or pleural fluid is seen. The bones appear grossly intact. EKG leads are seen in place. Impression: 1. No acute cardiopulmonary disease is seen. The finding is appear unchanged from 09/02/2010.
[2017-03-22] MEDS ORDERED: NITRO-BID 2% UD PACKETS TOP ONE (16:20)
[2017-03-22] MEDS ORDERED: NITRO-BID 2% UD PACKETS ONE (16:24)
[2017-03-22 16:42] VITALS: BP 120/77; PULSE 59
[2017-03-22 17:05] VITALS: O2SAT 97
== END 2017-03-22 17:20 | disposition short-term general hospital (02) ==
LOC: ED 14:39
DX: R07.89 Other chest pain (principal); I10 Essential (primary) hypertension; I25.10 Atherosclerotic heart disease of native coronary artery without angina pectoris
CPT/HCPCS: 36000; 36415; 71010; 80053; 84484; 85025; 85379; 85610; 93005; 93041; 96360; 96361; 96374; 96375; 99285; J2270; J2405; A9270-GY

== ENCOUNTER 2017-03-31 14:48 | Emergency (ER) | payer MEDICARE ==
[2017-03-31 14:55] VITALS: O2SAT 97
--- NOTE | 2017-03-31 15:11 | ERPHSYRPT ---
- History of Present Illness Time Seen by Provider: 03/31/17 15:01 Historian: patient Patient Subjective Stated Complaint: headache for four days. has been taking imitrex as directed and the pain has not went away. can take imitrex every 2 hours. Triage Nursing Assessment: alert x 3. skin pink warm and dry. pt ambulated into the ER. respirations even and unlabored. Physician History: States ate Persian food and swallowed big chunk of rise, when she noticed she had epigastric pain and unable to swallow. Tried drinking some liquids but had difficulty keeping down liquids. States no SOB, dizziness, weakness. States have had similar episodes X 3 but usually food passes through after drinking water. No recent illness, fatigue, REDD, syncope or any other systemic symptoms. Timing/Duration: today Activities at Onset: other (eating food) Quality: cramping Severity of Pain-Max: moderate Severity of Pain-Current: none Modifying Factors: Improves With: eating (worsens) Associated Symptoms: nausea, vomiting, No diarrhea, No fever/chills Previous symptoms: same symptoms as today Allergies/Adverse Reactions: No Known Drug Allergies Allergy (Verified 03/22/17 14:45) Home Medications: Levetiracetam [Keppra 500 mg ] 500 mg PO BID 03/03/17 [History] Lacosamide [Vimpat] 150 mg PO BID 03/13/17 [History] Losartan Potassium 50 mg [Cozaar 50 MG] 50 mg PO DAILY 03/13/17 [History] Sumatriptan Succinate [Imitrex] 180 mg PO UD 03/13/17 [History] Hx Tetanus, Diphtheria Vaccination/Date Given: No Hx Influenza Vaccination/Date Given: Yes Hx Pneumococcal Vaccination/Date Given: Yes Immunizations Up to Date: Yes - Review of Systems Constitutional: No Fever, No Chills Eyes: No Symptoms Ears, Nose, & Throat: No Symptoms Respiratory: No Cough, No Dyspnea Cardiac: No Chest Pain, No Edema, No Syncope Abdominal/Gastrointestinal: Abdominal Pain, Nausea, Vomiting, No Diarrhea Genitourinary Symptoms: No Dysuria Musculoskeletal: No Back Pain, No Neck Pain Skin: No Rash Neurological: No Dizziness, No Focal Weakness, No Sensory Changes Psychological: No Symptoms Endocrine: No Symptoms All Other Systems: Reviewed and Negative - Past Medical History Pertinent Past Medical History: Yes Neurological History: Migraines, Seizures, Other ENT History: No Pertinent History Cardiac History: Hypertension Respiratory History: No Pertinent History Endocrine Medical History: No Pertinent History Musculoskeletal History: Other GI Medical History: No Pertinent History History: No Pertinent History Male Reproductive Disorders: No Pertinent History Other Medical History: R FOOT ANKLE SURGERY TO RECONSTRUCT ~ 5 YEARS AGO. CP. last seizure was one year ago. - Past Surgical History Past Surgical History: Yes Neuro Surgical History: No Pertinent History Cardiac: No Pertinent History Respiratory: No Pertinent History Gastrointestinal: No Pertinent History Genitourinary: No Pertinent History Musculoskeletal: No Pertinent History Male Surgical History: No Pertinent History Other Surgical History: back sugery 02/07 - Social History Smoking Status: Never smoker Exposure to second hand smoke: No Drug Use: none Patient Lives Alone: No - Nursing Vital Signs Nursing Vital Signs: Initial Vital Signs Temperature 98.0 F Temperature Source Oral Pulse Rate 64 Respiratory Rate 20 Blood Pressure [Right Arm] 142/86 Pain Intensity 10 - Physical Exam General Appearance: no apparent distress, alert Eye Exam: PERRL/EOMI, eyes nml inspection Ears, Nose, Throat Exam: normal ENT inspection, pharynx normal, moist mucous membranes Neck Exam: normal inspection, non-tender, supple, full range of motion Respiratory Exam: normal breath sounds, lungs clear, No respiratory distress Cardiovascular Exam: regular rate/rhythm, normal heart sounds Gastrointestinal/Abdomen Exam: soft, No tenderness, No mass Back Exam: normal inspection, normal range of motion, No CVA tenderness, No vertebral tenderness Extremity Exam: normal inspection, normal range of motion, pelvis stable Neurologic Exam: alert, 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, cooperative, normal mood/affect, nml cerebellar function, sensation nml, No motor deficits Skin Exam: normal color, warm, dry SpO2: 97 Oxygen Delivery: Room Air - Progress Progress: improved Progress Note: 03/31/17 15:15 Pt. able to swallow liquids without any problems. States she feels much better. Counseled pt/family regarding: diagnosis - Departure Departure Disposition: Home Clinical Impression: Esophageal obstruction due to food impaction Condition: Stable Critical Care Time: No
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
[2017-03-31] MEDS ORDERED: Phenergan 25 MG INJ IM ONE (15:43)
[2017-03-31] MEDS ORDERED: DEMEROL 50 MG IM ONE (15:43)
[2017-03-31] MEDS ORDERED: Phenergan 25 MG INJ ONE (16:00)
[2017-03-31] MEDS ORDERED: DEMEROL 50 MG ONE (16:00)
[2017-03-31 16:24] VITALS: BP 130/90; PULSE 58
== END 2017-03-31 16:25 | disposition home or self-care (01) ==
LOC: ED 14:48
DX: G43.909 Migraine, unspecified, not intractable, without status migrainosus (principal); Z79.899 Other long term (current) drug therapy
CPT/HCPCS: 96372; 99284; J2175; J2550

== ENCOUNTER 2017-04-08 12:47 | Emergency (ER) | payer MEDICARE ==
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
[2017-04-08] MEDS ORDERED: TORAdol 30 mg Injection IM ONE (13:16)
[2017-04-08] MEDS ORDERED: TORAdol 30 mg Injection ONE (13:26)
[2017-04-08 13:41] VITALS: BP 130/85; PULSE 75; O2SAT 98
== END 2017-04-08 13:39 | disposition home or self-care (01) ==
LOC: ED 12:47
DX: T23.101A Burn of first degree of right hand, unspecified site, initial encounter (principal); X15.3XXA Contact with hot saucepan or skillet, initial encounter
CPT/HCPCS: 96372; 99283; J1885

== ENCOUNTER 2017-06-23 16:36 | Emergency (ER) | payer MEDICARE ==
[2017-06-23] MEDS ORDERED: Sodium Chloride 0.9% 1000 ML 1,000 ML IV STA (18:29)
[2017-06-23] MEDS ORDERED: Sodium Chloride 0.9% 1000 ML 1,000 ML ONE (18:33)
[2017-06-23 18:35] LABS: BASOPHIL % 0.2 % (0.0-0.4); Eosinophil % 3.1 % (0.00-5.0); Granulocytes % 48.8 % (36.0-66.0); Lymphocytes % 38.4 % (24.0-44.0); Mean Cell Volume 93.2 fl (78-100); Monocytes % 9.5 % (0.0-12.0); Platelet Count 182 K/mm3 (150-450); Red Cell Distribution Width 12.5 % (11.5-14.0); White Blood Count 6.2 K/mm3 (4.0-10.5)
[2017-06-23 18:41] LABS: VBG BASE EXCESS 2.4 (-2.0-2.0); VBG CARBOXYHEMOGLOBIN 2.5 % T HGB (0.0-6.9); VBG HCO3- 26.4 meq/L (22-28); VBG HEMOGLOBIN 15.1; VBG POTASSIUM 3.3 (3.5-5.1); VBG pH 7.45 (7.32-7.42)
[2017-06-23 18:56] LABS: MAGNESIUM 2.1 mg/dL (1.8-2.4)
[2017-06-23 18:58] LABS: ALBUMIN 3.9 g/dL (3.4-5.0); ALKALINE PHOSPHATASE 65 U/L (46-116); BLOOD UREA NITROGEN 22 mg/dL (9-20); CHLORIDE 104 mEq/L (98-107); Glucose 114 MG/DL (70-110); Potassium 3.3 mEq/L (3.5-5.1); SGOT/AST 18 U/L (15-37); SGPT/ALT 30 U/L (12-78); SODIUM 140 mEq/L (136-145); Total Protein 7.5 gm/dL (6.4-8.2)
[2017-06-23 19:07] LABS: Collection Type CLEAN CATCH
[2017-06-23 19:08] LABS: ADD URINE CULTURE? NO (NO); Bilirubin NEGATIVE (NEGATIVE); Blood NEGATIVE Ery/ul (0-5); COMPLETE URINE MICROSCOPIC? NO; Glucose NEGATIVE (NEGATIVE); Leukocyte Esterase NEGATIVE (NEGATIVE)
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
[2017-06-23 21:05] VITALS: BP 104/65; PULSE 62; O2SAT 96
--- NOTE | 2017-06-24 08:48 | XRAY ---
Indication: Patient found "passed out." Headache. History of seizures. Multiple contiguous axial images obtained through the head without contrast. Comparison: March 06, 2017. There are now bilateral parasellar air bubbles that appear to be within the internal carotid arteries. A few extracranial air bubbles also seen near the base of the skull and deep right temporal region. Findings possibly posttraumatic versus infectious in etiology. Again the right cerebral hemisphere is larger than the left. Stable asymmetric right lateral ventricle enlargement, corpus callosal agenesis/hypogenesis, and left hemispheric subfalcine extension into the right hemisphere. No acute intracranial hemorrhage or abnormal extra-axial fluid collection. Fourth ventricle is midline. Bony calvarium intact. Visualized paranasal sinuses and mastoid air cells are pneumatized and clear. Impression: 1. New bilateral parasellar and extracranial air bubbles as detailed. Rule out posttraumatic versus infectious etiologies. 2. Stable congenital brain malformation as detailed. Comment: Case was discussed with the ordering clinician following this report. CTDI 48.25
--- NOTE | 2017-06-24 08:55 | XRAY ---
Indication: Cough. Comparison: March 22, 2017. PA/lateral chest again demonstrates normal heart, lungs, and bony thorax with incidental calcified granulomas.
== END 2017-06-23 21:06 | disposition home or self-care (01) ==
LOC: ED 16:36
DX: R55 Syncope and collapse (principal); R56.9 Unspecified convulsions; J93.82 Other air leak; Q04.9 Congenital malformation of brain, unspecified; R51 Headache; Z79.899 Other long term (current) drug therapy; I10 Essential (primary) hypertension
CPT/HCPCS: 36000; 36415; 70450; 71020; 80053; 80307; 81002; 82550; 82805; 83735; 84484; 85025; 93005; 93041; 96360; 99284; 99285

== ENCOUNTER 2017-07-04 17:17 | Emergency (ER) | payer MEDICARE ==
[2017-07-04 17:35] VITALS: O2SAT 97
--- NOTE | 2017-07-04 18:22 | ERPHSYRPT ---
- History of Present Illness Time Seen by Provider: 07/04/17 18:17 Source: patient Exam Limitations: no limitations Patient Subjective Stated Complaint: PT STATES AT 1200 TODAY HE ACCIDENTL SLAMMED RIGHT HAND IN A CAR DOOR. PT C/O PAIN TO LATERAL SIDE OF RIGHT HAND. Triage Nursing Assessment: PT PINK, WARM, DRY. NO DEFORMITY NOTED TO RIGHT HAND. NO SWELLING OR BRUISING PRESENT. RADIAL PULSE STRONG. Physician History: The patient is a 47-year-old left-handed male with his complaining that he accidentally slammed the car door on his right hand about 6 hours ago. He is not taken any analgesics. He said he went in to the house and fell asleep. His past medical history is significant for hypertension, depression, and epilepsy. Occurred: this morning Method of Injury: direct blow Quality: constant, aching Severity of Pain-Max: moderate Severity of Pain-Current: moderate Extremities Pain Location: wrist: right, hand: right Modifying Factors: Improves With: nothing Associated Symptoms: none Allergies/Adverse Reactions: No Known Drug Allergies Allergy (Verified 06/23/17 17:54) Home Medications: Levetiracetam [Keppra 500 mg ] 500 mg PO BID 03/03/17 [History] Lacosamide [Vimpat] 150 mg PO BID 03/13/17 [History] Losartan Potassium 50 mg [Cozaar 50 MG] 50 mg PO DAILY 03/13/17 [History] Fluoxetine HCl 40 mg PO DAILY 07/04/17 [History] Hydrochlorothiazide 25 mg [hydroDIURIL 25 MG] 25 mg PO DAILY 07/04/17 [ History] Propranolol HCl [Propranolol HCl ER] 80 mg PO DAILY 07/04/17 [History] Ropinirole HCl 1 mg PO HS 07/04/17 [History] Hx Tetanus, Diphtheria Vaccination/Date Given: Yes (UP TO DATE) Hx Influenza Vaccination/Date Given: Yes Hx Pneumococcal Vaccination/Date Given: No Immunizations Up to Date: Yes - Review of Systems Constitutional: No Fever, No Chills Eyes: No Symptoms Ears, Nose, & Throat: No Symptoms Respiratory: No Cough, No Dyspnea Cardiac: No Chest Pain, No Edema, No Syncope Abdominal/Gastrointestinal: No Abdominal Pain, No Nausea, No Vomiting, No Diarrhea Genitourinary Symptoms: No Dysuria Musculoskeletal: No Back Pain, No Neck Pain Skin: No Rash Neurological: No Dizziness, No Focal Weakness, No Sensory Changes Psychological: No Symptoms Endocrine: No Symptoms Hematologic/Lymphatic: No Symptoms Immunological/Allergic: No Symptoms All Other Systems: Reviewed and Negative - Past Medical History Pertinent Past Medical History: Yes Neurological History: Migraines, Seizures, Other ENT History: No Pertinent History Cardiac History: Hypertension Respiratory History: No Pertinent History Endocrine Medical History: No Pertinent History Musculoskeletal History: Other GI Medical History: No Pertinent History History: No Pertinent History Male Reproductive Disorders: No Pertinent History, Scrotal Mass Other Medical History: Foot/ankle OR. Seizures - Past Surgical History Past Surgical History: Yes Neuro Surgical History: No Pertinent History Cardiac: No Pertinent History Respiratory: No Pertinent History Gastrointestinal: No Pertinent History Genitourinary: No Pertinent History Musculoskeletal: No Pertinent History Male Surgical History: No Pertinent History Other Surgical History: back [facility] 02/07 - Social History Smoking Status: Never smoker Exposure to second hand smoke: No Alcohol Use: None Drug Use: none Patient Lives Alone: No Significant Family History: no pertinent family hx - Nursing Vital Signs Nursing Vital Signs: Initial Vital Signs Temperature 98.7 F 07/04/17 17:30 Pulse Rate 52 L 07/04/17 17:30 Respiratory Rate 18 07/04/17 17:30 Blood Pressure 126/73 07/04/17 17:30 O2 Sat by Pulse Oximetry 97 07/04/17 17:30 Pain Scale Pain Intensity 9 - Physical Exam General Appearance: alert Eyes, Ears, Nose, Throat Exam: moist mucous membranes Neck Exam: normal inspection Cardiovascular/Respiratory Exam: chest non-tender, normal breath sounds, regular rate/rhythm, no respiratory distress Abdominal Exam: non-tender, No guarding Back Exam: normal inspection, No vertebral tenderness Shoulder Exam: normal inspection Elbow/Forearm Exam: normal inspection Wrist Exam: soft tissue tenderness, swelling Hand Exam: soft tissue tenderness, swelling Neuro/Tendon Exam: normal sensation, normal motor functions Mental Status Exam: alert, 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, cooperative Skin Exam: normal color, warm, dry SpO2 Interpretation: normal SpO2: 97 Oxygen Delivery: Room Air - Radiology Exams Right Hand X-ray Interpretation: Interpreted by me, Negative Ordered Tests: Active Orders 24 hr Category Date Time Status HAND (MINIMUM 3 VIEWS) Stat Exams 07/04/17 Taken - Progress Counseled pt/family regarding: rad results - Departure Time of Disposition: 18:27 Departure Disposition: Home Clinical Impression: Contusion of right hand Condition: Stable Critical Care Time: No Referrals: ARCHIE SIDHU [Primary Care Provider] - Additional Instructions: You have a contusion of your right hand. You were given Toradol 60 mg by IM injection in the ER. Apply ice to your hand for 10-15 minutes 2-3 times a day for 1-2 days. Take Tylenol 1000 mg and ibuprofen 800 mg every 8 hours as needed. Follow-up as needed.
[2017-07-04] MEDS ORDERED: TORAdol 30 mg Injection IM ONE (18:23)
[2017-07-04] MEDS ORDERED: TORAdol 30 mg Injection ONE (18:39)
[2017-07-04 18:57] VITALS: BP 116/81; PULSE 51
--- NOTE | 2017-07-05 08:46 | XRAY ---
Indication: Pain following car door injury. Comparison: None 3 views of the right hand and a crosstable lateral view obtained. No bony, articular, or soft tissue abnormalities.
== END 2017-07-04 18:58 | disposition home or self-care (01) ==
LOC: ED 17:17
DX: S60.221A Contusion of right hand, initial encounter (principal); W22.8XXA Striking against or struck by other objects, initial encounter; I10 Essential (primary) hypertension
CPT/HCPCS: 73130; 96372; 99284; J1885

== ENCOUNTER 2017-07-27 12:39 | Emergency (ER) | payer MEDICARE ==
[2017-07-27 12:46] VITALS: PULSE 49
[2017-07-27] MEDS ORDERED: Tylenol #3 Tablet PO ONE (13:01)
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
[2017-07-27] MEDS ORDERED: Tylenol #3 Tablet ONE (13:09)
--- NOTE | 2017-07-27 13:29 | XRAY ---
Indication: Nose injury following fall. Multiple contiguous axial images obtained through the facial bones. Sagittal and coronal reformatted images obtained. Comparison: None No acute fracture, suspicious bony lesions, or radiopaque foreign body. Orbits including roof, holley, and floors intact. Minimal mucosal thickening seen in the floor the left maxillary sinus. Remaining paranasal sinuses and nasal passages clear. Mild nasal septal deviation to the right. Visualized cervical spine intact. Visualized noncontrasted soft tissues unremarkable. Base of the brain demonstrates known congenital deformity similar in appearance to CT head June 23, 2017. Impression: Negative CT facial bones. Incidental minimal paranasal sinus disease and nasal septal deviation. CTDI 59.47
[2017-07-27 14:28] VITALS: BP 90/68; O2SAT 95
== END 2017-07-27 14:28 | disposition home or self-care (01) ==
LOC: ED 12:39
DX: S00.33XA Contusion of nose, initial encounter (principal); W01.198A Fall on same level from slipping, tripping and stumbling with subsequent striking against other object, initial encounter; G80.9 Cerebral palsy, unspecified; R51 Headache; Z79.899 Other long term (current) drug therapy; R04.0 Epistaxis; I10 Essential (primary) hypertension
CPT/HCPCS: 70486; 99283; 99284; A9270-GY

== ENCOUNTER 2017-08-17 18:35 | Emergency (ER) | payer MEDICARE ==
[2017-08-17] MEDS ORDERED: TORAdol 30 mg Injection IM ONE (19:08)
[2017-08-17] MEDS ORDERED: TORAdol 30 mg Injection ONE (19:11)
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
[2017-08-17 20:33] VITALS: BP 121/60; PULSE 79; O2SAT 99
== END 2017-08-17 20:57 | disposition home or self-care (01) ==
LOC: ED 18:35
DX: S63.502A Unspecified sprain of left wrist, initial encounter (principal); W22.8XXA Striking against or struck by other objects, initial encounter
CPT/HCPCS: 73110; 73130; 96372; 99284; J1885; L3908

== ENCOUNTER 2017-08-30 18:40 | Emergency (ER) | payer MEDICARE ==
[2017-08-30] MEDS ORDERED: Sodium Chloride 0.9% 1000 ML 1,000 ML IV STA (20:43)
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
[2017-08-30] MEDS ORDERED: Sodium Chloride 0.9% 1000 ML 1,000 ML ONE (20:49)
[2017-08-30 20:59] LABS: BASOPHIL % 0.3 % (0.0-0.4); Eosinophil % 3.3 % (0.00-5.0); Granulocytes % 48.6 % (36.0-66.0); Mean Cell Volume 94.7 fl (78-100); Mean Corpuscular Hemoglobin 32.4 pg (26-32); Mean Platelet Volume 10.5 fl (6-9.5); Monocytes % 7.8 % (0.0-12.0); Platelet Count 194 K/mm3 (150-450); Red Blood Count 4.32 M/mm3 (4.1-5.6); Red Cell Distribution Width 12.3 % (11.5-14.0); White Blood Count 6.6 K/mm3 (4.0-10.5)
[2017-08-30 21:23] LABS: ALBUMIN 3.8 g/dL (3.4-5.0); ALKALINE PHOSPHATASE 62 U/L (46-116); ANION GAP 13.8 MEQ/L (5-15); BLOOD UREA NITROGEN 19 mg/dL (9-20); CHLORIDE 105 mEq/L (98-107); Carbon Dioxide 24.7 mEq/L (21-32); Glucose 114 MG/DL (70-110); Potassium 3.5 mEq/L (3.5-5.1); SGOT/AST 21 U/L (15-37); SGPT/ALT 40 U/L (12-78); SODIUM 140 mEq/L (136-145); Total Protein 7.4 gm/dL (6.4-8.2)
[2017-08-30 22:50] VITALS: BP 120/78; PULSE 55; O2SAT 98
--- NOTE | 2017-08-31 08:52 | XRAY ---
Indication: Weakness. Comparison: June 23, 2017. Portable chest again demonstrates normal heart, lungs, and bony thorax with a few incidental calcified granulomas.
== END 2017-08-30 22:52 | disposition home or self-care (01) ==
LOC: ED 18:40
DX: R53.1 Weakness (principal); R00.1 Bradycardia, unspecified; T50.995A Adverse effect of other drugs, medicaments and biological substances, initial encounter
CPT/HCPCS: 36000; 36415; 71010; 80053; 84484; 85025; 93005; 93041; 96360; 99284

== ENCOUNTER 2017-10-14 18:46 | Emergency (ER) | payer MEDICARE ==
[2017-10-14] MEDS ORDERED: DUONEB 0.5-3 MG/3 ml Neb IH ONE ×2 (18:59→19:05)
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
[2017-10-14 19:34] VITALS: BP 121/78; PULSE 52; O2SAT 99
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
== END 2017-10-14 19:49 | disposition home or self-care (01) ==
LOC: ED 18:46
DX: J70.5 Respiratory conditions due to smoke inhalation (principal); T59.811A Toxic effect of smoke, accidental (unintentional), initial encounter
CPT/HCPCS: 71010; 99283; A9270-GY

== ENCOUNTER 2017-10-27 17:15 | Emergency (ER) | payer MEDICARE ==
[2017-10-27] MEDS ORDERED: Sodium Chloride 0.9% 1000 ML 1,000 ML IV SCH (18:00)
[2017-10-27] MEDS ORDERED: Sodium Chloride 0.9% 1000 ML 1,000 ML ONE (18:03)
[2017-10-27 18:29] LABS: BASOPHIL % 0.2 % (0.0-0.4); Basophil (Absolute #) 0.01 (0-0.4); Eosinophil % 3.1 % (0.00-5.0); Eosinophil (Absolute #) 0.18 (0-0.5); Granulocyte Absolute (ANC) 2.72 (1.4-6.9); Granulocytes % 47.5 % (36.0-66.0); Hematocrit 41.3 % (42-50); Hemoglobin 14.1 gm/dl (12.5-18.0); Lymphocyte (Absolute #) 2.39 (1.0-4.6); Lymphocytes % 41.7 % (24.0-44.0); Mean Cell Volume 93.4 fl (78-100); Mean Corpuscular Hemoglobin 31.9 pg (26-32); Mean Corpuscular Hgb Concent. 34.1 g/dl (32-36); Mean Platelet Volume 10.6 fl (6-9.5); Monocyte (Absolute #) 0.43 (0.0-1.3); Monocytes % 7.5 % (0.0-12.0); Platelet Count 176 K/mm3 (150-450); Red Blood Count 4.42 M/mm3 (4.1-5.6); Red Cell Distribution Width 12.1 % (11.5-14.0); White Blood Count 5.7 K/mm3 (4.0-10.5)
[2017-10-27 18:31] LABS: Appearance CLEAR (CLEAR); Bilirubin NEGATIVE (NEGATIVE); Blood NEGATIVE Ery/ul (0-5); Glucose NEGATIVE (NEGATIVE); Ketones NEGATIVE (NEGATIVE); Leukocyte Esterase NEGATIVE (NEGATIVE); Nitrite NEGATIVE (NEGATIVE); Protein,Urine Dip NEGATIVE (Negative); Specific Gravity 1.015 (1.005-1.025); Urobilinogen NORMAL mg/dL (0-1)
[2017-10-27 18:55] LABS: ANION GAP 12.2 MEQ/L (5-15); BLOOD UREA NITROGEN 19 mg/dL (9-20); CHLORIDE 103 mEq/L (98-107); Calcium 8.7 mg/dL (8.5-10.1); Carbon Dioxide 26.5 mEq/L (21-32); Creatinine 1 1.27 mg/dl (0.55-1.30); EST GLOMERULAR FILTRATION RATE > 60 ML/MIN; Glucose 100 MG/DL (70-110); Potassium 3.6 mEq/L (3.5-5.1); SODIUM 138 mEq/L (136-145)
--- NOTE | 2017-10-27 18:55 | ERPHSYRPT ---
- History of Present Illness Time Seen by Provider: 10/27/17 17:40 Source: patient Exam Limitations: clinical condition Patient Subjective Stated Complaint: pt here for low b/p at home 96/86. and low heart rate, pt can not remember what hr was, and states he is now tried Triage Nursing Assessment: pt alert, resp easy,skin w/d pink,walked in. Physician History: PATIENT WITH A HISTORY OF MIGRAINE HEADACHE, HYPERTENSION AND CEREBRAL PALSY COMPLAINS OF ACUTE ONSET OF WEAKNESS AND LOW BLOOD PRESSURE 96/56, DENIES FEVER , CHILLS, CHEST PAIN, DYSPNEA, DIAPHORESIS, PALPITATIONS, HEADACHE, FOCAL WEAKNESS OR NUMBNESS. HAS OCCASIONAL COUGH MORE SO THAN NORMAL. Timing/Duration: today Severity: mild Modifying Factors: Improves With: other (LOW BLOOD PRESSURE) Associated Symptoms: cough Allergies/Adverse Reactions: No Known Drug Allergies Allergy (Verified 10/27/17 17:31) Home Medications: Levetiracetam [Keppra 500 mg ] 500 mg PO BID 03/03/17 [History] Lacosamide [Vimpat] 150 mg PO BID 03/13/17 [History] Losartan Potassium 50 mg [Cozaar 50 MG] 50 mg PO DAILY 03/13/17 [History] Fluoxetine HCl 40 mg PO DAILY 07/04/17 [History] Hydrochlorothiazide 25 mg [hydroDIURIL 25 MG] 25 mg PO DAILY 07/04/17 [ History] Propranolol HCl [Propranolol HCl ER] 80 mg PO DAILY 07/04/17 [History] Ropinirole HCl 1 mg PO HS 07/04/17 [History] Propranolol HCl [Propranolol HCl ER] 120 mg PO HS 08/17/17 [History] Hx Tetanus, Diphtheria Vaccination/Date Given: Yes Hx Influenza Vaccination/Date Given: Yes Hx Pneumococcal Vaccination/Date Given: Yes Immunizations Up to Date: Yes - Review of Systems Constitutional: No Fever, No Chills Eyes: No Symptoms Ears, Nose, & Throat: No Symptoms Respiratory: Cough, No Dyspnea Cardiac: No Symptoms, No Chest Pain, No Edema, No Syncope Abdominal/Gastrointestinal: No Symptoms, No Abdominal Pain, No Nausea, No Vomiting, No Diarrhea Genitourinary Symptoms: No Symptoms, No Dysuria Musculoskeletal: No Symptoms, No Back Pain, No Neck Pain Skin: No Rash Neurological: Other (GENERALIZED WEAKNESS), No Dizziness, No Focal Weakness, No Sensory Changes Psychological: No Symptoms Endocrine: No Symptoms All Other Systems: Reviewed and Negative - Past Medical History Pertinent Past Medical History: Yes Neurological History: Migraines, Seizures, Other ENT History: No Pertinent History Cardiac History: Hypertension Respiratory History: No Pertinent History Endocrine Medical History: No Pertinent History Musculoskeletal History: Other GI Medical History: No Pertinent History History: No Pertinent History Male Reproductive Disorders: No Pertinent History, Scrotal Mass Other Medical History: Foot/ankle OR. Seizures - Past Surgical History Past Surgical History: Yes Neuro Surgical History: No Pertinent History Cardiac: No Pertinent History Respiratory: No Pertinent History Gastrointestinal: No Pertinent History Genitourinary: No Pertinent History Musculoskeletal: No Pertinent History Male Surgical History: No Pertinent History Other Surgical History: back sugery 02/07 - Social History Smoking Status: Never smoker Exposure to second hand smoke: No Alcohol Use: None Drug Use: none Patient Lives Alone: No Significant Family History: no pertinent family hx - Nursing Vital Signs Nursing Vital Signs: Initial Vital Signs Temperature 97.8 F 10/27/17 17:27 Pulse Rate 55 L 10/27/17 17:27 Respiratory Rate 16 10/27/17 17:27 Blood Pressure 131/84 10/27/17 17:27 O2 Sat by Pulse Oximetry 95 10/27/17 17:27 Pain Scale Pain Intensity 0 - Physical Exam General Appearance: no apparent distress, alert Eye Exam: PERRL/EOMI, eyes nml inspection Ears, Nose, Throat Exam: normal ENT inspection, TMs normal, pharynx normal, moist mucous membranes Neck Exam: normal inspection, non-tender, supple, full range of motion Respiratory Exam: normal breath sounds, lungs clear, No respiratory distress Cardiovascular Exam: regular rate/rhythm, normal heart sounds, normal peripheral pulses Gastrointestinal/Abdomen Exam: soft, normal bowel sounds, No tenderness, No mass Back Exam: normal inspection, normal range of motion, No CVA tenderness, No vertebral tenderness Extremity Exam: normal inspection, normal range of motion, pelvis stable Neurologic Exam: alert, 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, cooperative, normal mood/affect, nml cerebellar function, nml station & gait, sensation nml, No motor deficits Skin Exam: normal color, warm, dry, No rash Lymphatic Exam: No adenopathy SpO2 Interpretation: normal SpO2: 97 Oxygen Delivery: Room Air - Course EKG Interpreted by Me: Sinus Rhythm, Sinus Jose, NORMAL AXIS, Other (RATE OF 48 NO CHANGE IN ANTERIOSEPTAL T-WAVE INVERSION) - Radiology Exams Chest X-ray Interpretation: Interpreted by me (MILD CARDIOMEGALY, NO INFILTRATES ) Ordered Tests: Active Orders 24 hr Category Date Time Status Bulk Clerk STAT Care 10/27/17 17:54 Active EKG-ER Only STAT Care 10/27/17 17:52 Active IV Insertion STAT Care 10/27/17 17:52 Active CHEST 1 VIEW (PORTABLE) Stat Exams 10/27/17 17:54 Taken BLOOD CULTURE Stat Lab 10/27/17 18:20 Received BMP Stat Lab 10/27/17 18:05 Completed CBC W DIFF Stat Lab 10/27/17 18:05 Completed TROPONIN Q3H Lab 10/27/17 18:00 Completed TROPONIN Q3H Lab 10/27/17 21:00 Ordered UA W/RFX UR CULTURE Stat Lab 10/27/17 18:20 Completed Medication Summary Generic Name Dose Route Start Last Admin Trade Name Freq PRN Reason Stop Dose Admin Sodium Chloride 1,000 mls @ 100 mls/hr 10/27/17 18:00 10/27/17 18:04 Sodium Chloride 0.9% 1000 Ml IV 11/26/17 17:59 100 mls/hr .Q10H MARKO Administration Discontinued Medications Generic Name Dose Route Start Last Admin Trade Name Freq PRN Reason Stop Dose Admin Ceftriaxone Sodium/Dextrose 1 g in 50 mls @ 100 mls/hr 10/27/17 18:57 19:08 Rocephin 1 Gm-D5w 50 Ml Bag IV 10/27/17 19:26 100 mls/hr STAT STA Administration Ceftriaxone Sodium/Dextrose Confirm 10/27/17 19:06 Rocephin 1 Gm-D5w 50 Ml Bag Administered 10/27/17 19:07 Dose 1 g in 50 mls @ ud IV .K-MED ONE Lab/Rad Data: Laboratory Result Diagrams 10/27/17 18:05 10/27/17 18:05 Laboratory Results 10/27/17 10/27/17 10/27/17 Range/Units 18:20 18:05 18:05 WBC 5.7 (4.0-10.5) K/mm3 RBC 4.42 (4.1-5.6) M/mm3 Hgb 14.1 (12.5-18.0) gm/dl Hct 41.3 L (42-50) % MCV 93.4 (78-100) fl MCH 31.9 (26-32) pg MCHC 34.1 (32-36) g/dl RDW 12.1 (11.5-14.0) % Plt Count 176 (150-450) K/mm3 MPV 10.6 H (6-9.5) fl Gran % 47.5 (36.0-66.0) % Lymphocytes % 41.7 (24.0-44.0) % Monocytes % 7.5 (0.0-12.0) % Eosinophils % 3.1 (0.00-5.0) % Basophils % 0.2 (0.0-0.4) % Basophils # 0.01 (0-0.4) Sodium 138 (136-145) mEq/L Potassium 3.6 (3.5-5.1) mEq/L Chloride 103 (98-107) mEq/L Carbon Dioxide 26.5 (21-32) mEq/L Anion Gap 12.2 (5-15) MEQ/L BUN 19 (9-20) mg/dL Creatinine 1.27 (0.55-1.30) mg/dl Estimated GFR > 60 ML/MIN Glucose 100 (70-110) MG/DL Calcium 8.7 (8.5-10.1) mg/dL Troponin I (0.000-0.056) ng/ml Ur Collection Type CCMS Urine Color YELLOW (YELLOW) Urine Appearance CLEAR (CLEAR) Urine pH 6.0 (5-6) Ur Specific [place] 1.015 (1.005-1.025) Urine Protein NEGATIVE (Negative) Urine Ketones NEGATIVE (NEGATIVE) Urine Blood NEGATIVE (0-5) Arnold/ul Urine Nitrite NEGATIVE (NEGATIVE) Urine Bilirubin NEGATIVE (NEGATIVE) Urine Urobilinogen NORMAL (0-1) mg/dL Ur Leukocyte Esterase NEGATIVE (NEGATIVE) Urine Culture Reflexed NO (NO) Urine Glucose NEGATIVE (NEGATIVE) mg/dL Influenza Type A Ag (NEGATIVE) Influenza Type B Ag (NEGATIVE) RSV (PCR) (Negative) Specimen Received 10-27-17 8016 10/27/17 10/27/17 Range/Units 18:00 17:30 WBC (4.0-10.5) K/mm3 RBC (4.1-5.6) M/mm3 Hgb (12.5-18.0) gm/dl Hct (42-50) % MCV (78-100) fl MCH (26-32) pg MCHC (32-36) g/dl RDW (11.5-14.0) % Plt Count (150-450) K/mm3 MPV (6-9.5) fl Gran % (36.0-66.0) % Lymphocytes % (24.0-44.0) % Monocytes % (0.0-12.0) % Eosinophils % (0.00-5.0) % Basophils % (0.0-0.4) % Basophils # (0-0.4) Sodium (136-145) mEq/L Potassium (3.5-5.1) mEq/L Chloride (98-107) mEq/L Carbon Dioxide (21-32) mEq/L Anion Gap (5-15) MEQ/L BUN (9-20) mg/dL Creatinine (0.55-1.30) mg/dl Estimated GFR ML/MIN Glucose (70-110) MG/DL Calcium (8.5-10.1) mg/dL Troponin I < 0.017 (0.000-0.056) ng/ml Ur Collection Type Urine Color (YELLOW) Urine Appearance (CLEAR) Urine pH (5-6) Ur Specific [place] (1.005-1.025) Urine Protein (Negative) Urine Ketones (NEGATIVE) Urine Blood (0-5) Arnold/ul Urine Nitrite (NEGATIVE) Urine Bilirubin (NEGATIVE) Urine Urobilinogen (0-1) mg/dL Ur Leukocyte Esterase (NEGATIVE) Urine Culture Reflexed (NO) Urine Glucose (NEGATIVE) mg/dL Influenza Type A Ag NEGATIVE (NEGATIVE) Influenza Type B Ag NEGATIVE (NEGATIVE) RSV (PCR) NEGATIVE (Negative) Specimen Received - Progress Counseled pt/family regarding: lab results, diagnosis, need for follow-up, rad results - Departure Time of Disposition: 19:40 Departure Disposition: Home Clinical Impression: ACUTE BRONCHITIS Condition: Stable Critical Care Time: No Referrals: ARCHIE SIDHU [Primary Care Provider] - Additional Instructions: ANTIBIOTIC CEFTIN 250MG TWICE DAILY FOR 7 DAYS. CONSULT YOUR PRIMARY CARE PROVIDER FOR FOLLOWUP. Prescriptions: Cefuroxime Axetil [Cefuroxime] 250 mg PO BID #14 tablet
[2017-10-27] MEDS ORDERED: ROCEPHIN 1 Gm-D5w 50 ml Bag** 1 G/50 ML IVPB IV STA (18:57)
[2017-10-27] MEDS ORDERED: ROCEPHIN 1 Gm-D5w 50 ml Bag** 1 G/50 ML IVPB IV ONE (19:06)
[2017-10-27 19:32] LABS: INFLUENZA A NEGATIVE (NEGATIVE); INFLUENZA B NEGATIVE (NEGATIVE); RESPIRATORY SYNCTIAL VIRUS NEGATIVE (Negative)
[2017-10-27 19:57] VITALS: BP 116/80; PULSE 54; O2SAT 98
--- NOTE | 2017-10-28 09:06 | XRAY ---
Indication: Cough and weakness. Comparison: October 14, 2017. Portable chest underinflated today and remains clear again with incidental calcified granulomas. Heart is not enlarged. No new/acute findings. Impression: Nonacute underinflated chest.
== END 2017-10-27 19:57 | disposition home or self-care (01) ==
LOC: ED 17:15
DX: J20.9 Acute bronchitis, unspecified (principal); I10 Essential (primary) hypertension; Z79.899 Other long term (current) drug therapy
CPT/HCPCS: 36000; 36415; 71045; 80048; 81002; 84484; 85025; 87040; 87631; 93005; 93041; 96360; 96361; 96365; 99284; J0696

== ENCOUNTER 2017-11-14 10:48 | Emergency (ER) | payer MEDICARE ==
[2017-11-14 11:01] VITALS: O2SAT 96
[2017-11-14] MEDS ORDERED: Lactated Ringers 1,000 ML IV ONE ×4 (11:06→12:05)
--- NOTE | 2017-11-14 11:12 | ERPHSYRPT ---
- History of Present Illness Time Seen by Provider: 11/14/17 10:51 Source: patient, family () Patient Subjective Stated Complaint: PT states "I had a seizure about [address] Larson upped my keppra 750 mg two times a day. I am not getting dizzy and I do not feel well." Triage Nursing Assessment: Pt alert and oriented X 3, skin pwd. Pt ambulates with an upright steady gait, able to speak in clear full sentences. Physician History: CC: dizziness Hx: 47 y/o patient with hx of seizure and congenital brain problem. He sees Dr Bubba Larson. He is in keppra. He had last seizure 2 months ago. Increased keppra from 500 to 750 and now dizzy for the past 3 days. They feel it is the keppra causing. No other symptoms. No headache, sz, N/T/unusual weakness. He has chronic drawn right arm. No chest pain, dyspnea, abd pain. No V/D. Normal urination. Timing/Duration: day(s) (3) Severity: moderate Allergies/Adverse Reactions: No Known Drug Allergies Allergy (Verified 10/27/17 17:31) Home Medications: Levetiracetam [Keppra 500 mg ] 750 mg PO BID 03/03/17 [History] Lacosamide [Vimpat] 150 mg PO BID 03/13/17 [History] Losartan Potassium 50 mg [Cozaar 50 MG] 50 mg PO DAILY 03/13/17 [History] Fluoxetine HCl 40 mg PO DAILY 07/04/17 [History] Hydrochlorothiazide 25 mg [hydroDIURIL 25 MG] 25 mg PO DAILY 07/04/17 [ History] Ropinirole HCl 1 mg PO HS 07/04/17 [History] Propranolol HCl [Propranolol HCl ER] 120 mg PO HS 08/17/17 [History] Hx Tetanus, Diphtheria Vaccination/Date Given: Yes Hx Influenza Vaccination/Date Given: Yes Hx Pneumococcal Vaccination/Date Given: Yes Immunizations Up to Date: Yes - Review of Systems Constitutional: No Fever, No Chills, No Malaise Eyes: No Vision Changes Ears, Nose, & Throat: No Symptoms Respiratory: No Symptoms, No Dyspnea Cardiac: No Chest Pain, No Palpitations, No Syncope Abdominal/Gastrointestinal: No Abdominal Pain, No Nausea, No Vomiting, No Diarrhea Genitourinary Symptoms: No Dysuria Skin: No Rash Neurological: Dizziness, No Headache All Other Systems: Reviewed and Negative - Past Medical History Pertinent Past Medical History: Yes Neurological History: Migraines, Seizures, Other ENT History: No Pertinent History Cardiac History: Hypertension Respiratory History: No Pertinent History Endocrine Medical History: No Pertinent History Musculoskeletal History: Other GI Medical History: No Pertinent History History: No Pertinent History Male Reproductive Disorders: No Pertinent History, Scrotal Mass Other Medical History: Foot/ankle OR. Seizures - Past Surgical History Past Surgical History: Yes Neuro Surgical History: No Pertinent History Cardiac: No Pertinent History Respiratory: No Pertinent History Gastrointestinal: No Pertinent History Genitourinary: No Pertinent History Musculoskeletal: No Pertinent History Male Surgical History: No Pertinent History Other Surgical History: back sugery 02/07 - Social History Smoking Status: Never smoker Exposure to second hand smoke: No Alcohol Use: None Drug Use: none Patient Lives Alone: No Significant Family History: no pertinent family hx - Nursing Vital Signs Nursing Vital Signs: Initial Vital Signs Temperature 98.0 F 11/14/17 10:57 Pulse Rate 62 11/14/17 10:57 Respiratory Rate 16 11/14/17 10:57 Blood Pressure 146/100 11/14/17 10:57 O2 Sat by Pulse Oximetry 96 11/14/17 10:57 Pain Scale Pain Intensity 0 - Physical Exam General Appearance: alert Eye Exam: PERRL/EOMI Ears, Nose, Throat Exam: normal ENT inspection, moist mucous membranes Neck Exam: normal inspection, non-tender, supple Respiratory Exam: normal breath sounds Cardiovascular Exam: regular rate/rhythm Gastrointestinal/Abdomen Exam: soft, No tenderness, No distention Male Genitalia Exam: normal genitalia Extremity Exam: normal inspection (drawn right arm), No calf tenderness Neurologic Exam: alert, 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, cooperative, 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 systems 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-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 nml as tested, nml cerebellar function, No motor deficits (except chronic right arm paralysis) Skin Exam: warm, dry, No rash SpO2 Interpretation: normal SpO2: 96 Oxygen Delivery: Room Air - Course Nursing assessment & vital signs reviewed: Yes EKG Interpreted by Me: RATE (56), Sinus Jose, NORMAL AXIS, NORMAL INTERVALS ( QTc 381), Non-specific ST Changes (precordial changes are same as prior tracing - no acute) Ordered Tests: Active Orders 24 hr Category Date Time Status Clean Catch Urine Specimen STAT Care 11/14/17 11:06 Active EKG-ER Only STAT Care 11/14/17 11:11 Active IV Insertion STAT Care 11/14/17 11:06 Active CBC W DIFF Stat Lab 11/14/17 11:15 Completed CMP Stat Lab 11/14/17 11:15 Completed UA W/ MICROSCOPIC Stat Lab 11/14/17 11:40 Completed Medication Summary Generic Name Dose Route Start Last Admin Trade Name Freq PRN Reason Stop Dose Admin Lactated Ringer's 1,000 mls @ 999 mls/hr 11/14/17 12:02 11/14/17 12:08 Lactated Ringers IV 11/14/17 13:02 999 mls/hr .Q1H1M ONE Administration Discontinued Medications Generic Name Dose Route Start Last Admin Trade Name Freq PRN Reason Stop Dose Admin Lactated Ringer's 1,000 mls @ 999 mls/hr 11/14/17 11:06 11/14/17 11:19 Lactated Ringers IV 11/14/17 12:06 999 mls/hr .Q1H1M ONE Administration Lactated Ringer's Confirm 11/14/17 11:17 Lactated Ringers Administered 11/14/17 11:18 Dose 1,000 mls @ ud IV .STK-MED ONE Lactated Ringer's Confirm 11/14/17 12:05 Lactated Ringers Administered 11/14/17 12:06 Dose 1,000 mls @ ud IV .STK-MED ONE Lab/Rad Data: Laboratory Result Diagrams 11/14/17 11:15 11/14/17 11:15 Laboratory Results 11/14/17 11/14/17 11/14/17 Range/Units 11:40 11:15 11:15 WBC 6.3 (4.0-10.5) K/mm3 RBC 4.61 (4.1-5.6) M/mm3 Hgb 14.7 (12.5-18.0) gm/dl Hct 42.4 (42-50) % MCV 92.0 (78-100) fl MCH 31.9 (26-32) pg MCHC 34.7 (32-36) g/dl RDW 12.0 (11.5-14.0) % Plt Count 169 (150-450) K/mm3 MPV 10.3 H (6-9.5) fl Gran % 57.6 (36.0-66.0) % Lymphocytes % 33.6 (24.0-44.0) % Monocytes % 6.7 (0.0-12.0) % Eosinophils % 1.9 (0.00-5.0) % Basophils % 0.2 (0.0-0.4) % Basophils # 0.01 (0-0.4) Sodium 140 (136-145) mEq/L Potassium 3.4 L (3.5-5.1) mEq/L Chloride 104 (98-107) mEq/L Carbon Dioxide 26.8 (21-32) mEq/L Anion Gap 12.2 (5-15) MEQ/L BUN 23 H (9-20) mg/dL Creatinine 1.56 H (0.55-1.30) mg/dl Estimated GFR 51 ML/MIN Glucose 103 (70-110) MG/DL Calcium 8.8 (8.5-10.1) mg/dL Total Bilirubin 0.40 (0.2-1.0) mg/dL AST 21 (15-37) U/L ALT 34 (12-78) U/L Alkaline Phosphatase 59 (46-116) U/L Serum Total Protein 7.7 (6.4-8.2) gm/dL Albumin 4.0 (3.4-5.0) g/dL Ur Collection Type VOID Urine Color YELLOW (YELLOW) Urine Appearance CLEAR (CLEAR) Urine pH 5.0 (5-6) Ur Specific [place] 1.020 (1.005-1.025) Urine Protein NEGATIVE (Negative) Urine Ketones NEGATIVE (NEGATIVE) Urine Blood 5-10 (0-5) Arnold/ul Urine Nitrite NEGATIVE (NEGATIVE) Urine Bilirubin NEGATIVE (NEGATIVE) Urine Urobilinogen 1 (0-1) mg/dL Ur Leukocyte Esterase NEGATIVE (NEGATIVE) Urine Microscopic RBC 0-2 (0-2) /HPF Ur Epithelial Cells RARE (FEW) /HPF Urine Bacteria RARE (NEGATIVE) /HPF Urine Mucus MODERATE (NEGATIVE) /HPF Urine Culture Reflexed NO (NO) Urine Glucose NEGATIVE (NEGATIVE) mg/dL Specimen Received 11/14/17 1130 - Progress Progress Note: 11/14/17 12:09 He is stable. Attempting to get follow up appt with HALLE Sidhu. 2L LR given. He has some degree of dehydration. Advised increased fluids, recheck kidney function tests this week with HALLE Sidhu. He wants to decreased keppra to 500mg. Counseled pt/family regarding: lab results, diagnosis, need for follow-up - Departure Time of Disposition: 12:10 Departure Disposition: Home Clinical Impression: Dizziness, Hx of seizure disorder, Dehydration Condition: Stable Critical Care Time: No Referrals: ARCHIE SIDHU [Primary Care Provider] - BUBBA LARSON [CONSULTING PHYSICIAN] - Instructions: Seizures, Adult (DC), Dizziness, Nonvertigo, (DC), Dehydration, Adult (DC) Additional Instructions: Increase oral fluids. Keppra as directed. Follow up with HALLE Sidhu this week. No driving, climbing, swimming. Return for problems or concerns.
[2017-11-14 11:23] LABS: BASOPHIL % 0.2 % (0.0-0.4); Basophil (Absolute #) 0.01 (0-0.4); Eosinophil % 1.9 % (0.00-5.0); Eosinophil (Absolute #) 0.12 (0-0.5); Granulocyte Absolute (ANC) 3.62 (1.4-6.9); Granulocytes % 57.6 % (36.0-66.0); Hematocrit 42.4 % (42-50); Hemoglobin 14.7 gm/dl (12.5-18.0); Lymphocyte (Absolute #) 2.11 (1.0-4.6); Lymphocytes % 33.6 % (24.0-44.0); Mean Corpuscular Hemoglobin 31.9 pg (26-32); Mean Corpuscular Hgb Concent. 34.7 g/dl (32-36); Mean Platelet Volume 10.3 fl (6-9.5); Monocyte (Absolute #) 0.42 (0.0-1.3); Monocytes % 6.7 % (0.0-12.0); Platelet Count 169 K/mm3 (150-450); Red Blood Count 4.61 M/mm3 (4.1-5.6); White Blood Count 6.3 K/mm3 (4.0-10.5)
[2017-11-14 11:53] LABS: ANION GAP 12.2 MEQ/L (5-15); BILIRUBIN,TOTAL 0.4 mg/dL (0.2-1.0); Calcium 8.8 mg/dL (8.5-10.1); Carbon Dioxide 26.8 mEq/L (21-32); Creatinine 1 1.56 mg/dl (0.55-1.30); Potassium 3.4 mEq/L (3.5-5.1); Total Protein 7.7 gm/dL (6.4-8.2)
[2017-11-14 11:56] LABS: Appearance CLEAR (CLEAR); Bacteria RARE /HPF (NEGATIVE); Bilirubin NEGATIVE (NEGATIVE); Epithelial Cells RARE /HPF (FEW); Glucose NEGATIVE (NEGATIVE); Ketones NEGATIVE (NEGATIVE); Leukocyte Esterase NEGATIVE (NEGATIVE); Mucus MODERATE /HPF (NEGATIVE); Nitrite NEGATIVE (NEGATIVE); Protein,Urine Dip NEGATIVE (Negative); Urobilinogen 1 mg/dL (0-1)
[2017-11-14 13:18] VITALS: BP 146/97; PULSE 60
== END 2017-11-14 13:20 | disposition home or self-care (01) ==
LOC: ED 10:48
DX: R42 Dizziness and giddiness (principal); E86.0 Dehydration; G40.909 Epilepsy, unspecified, not intractable, without status epilepticus
CPT/HCPCS: 36000; 36415; 80053; 81000; 85025; 93005; 96360; 96361; 99284

== ENCOUNTER 2017-11-20 16:30 | Emergency (ER) | payer MEDICARE ==
[2017-11-20 16:45] VITALS: O2SAT 97
[2017-11-20] MEDS ORDERED: TORAdol 30 mg Injection IM ONE (16:45)
[2017-11-20] MEDS ORDERED: BENADRYL 50 MG/ML IM ONE (16:46)
[2017-11-20] MEDS ORDERED: Norflex 60 MG/2 ML IM ONE (16:46)
[2017-11-20] MEDS ORDERED: BENADRYL 50 MG/ML ONE (16:50)
[2017-11-20] MEDS ORDERED: Norflex 60 MG/2 ML ONE (16:50)
[2017-11-20] MEDS ORDERED: TORAdol 30 mg Injection ONE (16:50)
--- NOTE | 2017-11-20 16:50 | ERPHSYRPT ---
- History of Present Illness Time Seen by Provider: 11/20/17 16:47 Source: patient Exam Limitations: no limitations Patient Subjective Stated Complaint: migraine for two days Triage Nursing Assessment: ambulated to room per self. skin w/d, color normal. resp nonlabored. states has vomited today Physician History: migraine for two days Timing/Duration: day(s) (2 days) Quality: aching, throbbing Head Pain Location: frontal, temporal Severity of Pain-Max: moderate Severity of Pain-Current: severe Recent Head Trauma: no recent headache/trauma, frequent headaches, chronic headaches Associated Symptoms: nausea/vomiting, sensitive to light, stiff neck, No neck pain, No seizures, No speech problems, No vision changes, No visual disturbance , No weakness Previous symptoms: same symptoms as today Allergies/Adverse Reactions: No Known Drug Allergies Allergy (Verified 11/20/17 16:41) Home Medications: Levetiracetam [Keppra 500 mg ] 750 mg PO BID 03/03/17 [History] Lacosamide [Vimpat] 150 mg PO BID 03/13/17 [History] Losartan Potassium 50 mg [Cozaar 50 MG] 50 mg PO DAILY 03/13/17 [History] Fluoxetine HCl 40 mg PO DAILY 07/04/17 [History] Hydrochlorothiazide 25 mg [hydroDIURIL 25 MG] 25 mg PO DAILY 07/04/17 [ History] Ropinirole HCl 1 mg PO HS 07/04/17 [History] Propranolol HCl [Propranolol HCl ER] 120 mg PO HS 08/17/17 [History] Hx Tetanus, Diphtheria Vaccination/Date Given: Yes Hx Influenza Vaccination/Date Given: Yes Hx Pneumococcal Vaccination/Date Given: Yes - Review of Systems Constitutional: No Fever, No Chills Eyes: No Symptoms Ears, Nose, & Throat: No Symptoms Respiratory: No Cough, No Dyspnea Cardiac: No Chest Pain, No Edema, No Syncope Abdominal/Gastrointestinal: No Abdominal Pain, No Nausea, No Vomiting, No Diarrhea Genitourinary Symptoms: No Dysuria Musculoskeletal: No Back Pain, No Neck Pain Skin: No Rash Neurological: Headache, No Dizziness, No Focal Weakness, No Sensory Changes Psychological: No Symptoms Endocrine: No Symptoms All Other Systems: Reviewed and Negative - Past Medical History Pertinent Past Medical History: Yes Neurological History: Migraines, Seizures, Other ENT History: No Pertinent History Cardiac History: Hypertension Respiratory History: No Pertinent History Endocrine Medical History: No Pertinent History Musculoskeletal History: Other GI Medical History: No Pertinent History History: No Pertinent History Male Reproductive Disorders: No Pertinent History, Scrotal Mass Other Medical History: Foot/ankle OR. Seizures - Past Surgical History Past Surgical History: Yes Neuro Surgical History: No Pertinent History Cardiac: No Pertinent History Respiratory: No Pertinent History Gastrointestinal: No Pertinent History Genitourinary: No Pertinent History Musculoskeletal: No Pertinent History Male Surgical History: No Pertinent History Other Surgical History: back sugery 02/07 - Social History Smoking Status: Never smoker Exposure to second hand smoke: No Alcohol Use: None Drug Use: none Patient Lives Alone: No Significant Family History: no pertinent family hx - Nursing Vital Signs Nursing Vital Signs: Initial Vital Signs Temperature 98.2 F 11/20/17 16:37 Pulse Rate 80 11/20/17 16:37 Respiratory Rate 16 11/20/17 16:37 Blood Pressure 130/80 11/20/17 16:37 O2 Sat by Pulse Oximetry 97 11/20/17 16:37 Pain Scale Pain Intensity 10 - Physical Exam General Appearance: no apparent distress Eye Exam: PERRL/EOMI Ears, Nose, Throat Exam: normal ENT inspection, moist mucous membranes Neck Exam: normal inspection, supple, full range of motion, No meningismus Respiratory Exam: normal breath sounds, lungs clear Cardiovascular Exam: regular rate/rhythm, normal heart sounds Gastrointestinal/Abdominal Exam: soft, No tenderness, No distention Back Exam: normal inspection, normal range of motion Mental Status Exam: alert, 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, 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 Exam: normal speech, PERRL, No facial droop Coordination/Gait Exam: normal cerebellar function Motor/Sensory Exam: no motor deficit, no sensory deficit Skin Exam: normal color, warm, dry, No rash SpO2: 97 Oxygen Delivery: Room Air - Course Nursing assessment & vital signs reviewed: Yes Ordered Tests: Medication Summary Generic Name Dose Route Start Last Admin Trade Name Freq PRN Reason Stop Dose Admin Diphenhydramine HCl 50 mg 11/20/17 16:46 Benadryl 50 Mg/Ml IM 11/20/17 16:47 STAT ONE Orphenadrine Citrate 60 mg 11/20/17 16:46 Norflex 60 Mg/2 Ml IM 11/20/17 16:47 STAT ONE Discontinued Medications Generic Name Dose Route Start Last Admin Trade Name Monalisa PRN Reason Stop Dose Admin Ketorolac Tromethamine 60 mg 11/20/17 16:45 Toradol 30 Mg Injection IM 11/20/17 16:46 STAT ONE - Progress Progress: improved Air Movement: good Counseled pt/family regarding: diagnosis, need for follow-up - Departure Time of Disposition: 16:49 Departure Disposition: Home Clinical Impression: Migraine Qualifiers: Migraine type: without aura Status migrainosus presence: without status migrainosus Intractability: intractable Qualified Code(s): G43.019 - Migraine without aura, intractable, without status migrainosus Condition: Stable Critical Care Time: No Referrals: ARCHIE SIDHU [Primary Care Provider] - Instructions: Migraine Headache (DC), Migraine Headaches in Adults Additional Instructions: HEADACHE 1. After discharge from the emergency department, you should rest at home in a cool, dark, quiet place for 12-24 hours. 2. If any of the following signs or symptoms are noticed, you should be re- evaluated right away: A. Visual changes B. Stiff Neck C. Change in quality or location of pain D. Fever E. Recurrent vomiting 3. If pain medications were prescribed or given, they may cause drowsiness. ELOY SANDYDON was seen on 11/20/17 n the Emergency Room. At that time you were treated for an emergent condition, during your visit Laboratory, Radiology and/or other procedures may have been ordered. It is very important that you follow-up with your Primary Care Physician ARCHIE SIDHU within the next 24- 48 hours to review your Emergency Room visit and the final results of testing that was ordered. Some test results such as Urine Cultures, Blood Cultures, and other cultures if ordered will not be finalized for 24-48 hours. If you do not have a Primary Care Provider please call the medical records department at [phone] to obtain a copy of your results or you may sign into our patient portal to obtain these results by visiting us @ [email or web address] and completing the following steps: 1. Click on the Patient Portal link 2. Click the Patient Self Enrollment Link to complete the enrollment form and entering your 3. Once the enrollment form is completed you will receive an email with a temporary ID and password at the email address you provided. 4. Next choose a user name and password. Your user name must be at least 4 characters long and your password must be at least 4 characters long. 5. Choose a security question from the list and provide your answer to the question. If you already have signed into the Health Portal you may access your Health Care Information 16/05 by the following steps: 1. Login to our website @ [email or web address] 2. Enter your original user name and password. FAQS The [facility] Health Portal is an online tool that contains your Lab Results, Radiology Reports, Visit History, Discharge Instructions and Health Summary Lab and Radiology Results will not be available for 72 hours on the portal. The Portal is a secure site, passwords are encryted and URLs are re-written so they cannot be copied and pasted. You and authorized family members are the only ones who can access your Portal. Also there is a timeout feature that protects your information if you leave the Portal page open. If you have technical difficulty please use the Contact Us link on the page this will allow you to submit any questions you have regarding the Portal or you may contact the Medical Record Department at [phone].
[2017-11-20 17:19] VITALS: BP 117/79; PULSE 56
== END 2017-11-20 17:24 | disposition home or self-care (01) ==
LOC: ED 16:30
DX: G43.019 Migraine without aura, intractable, without status migrainosus (principal); G40.909 Epilepsy, unspecified, not intractable, without status epilepticus; I10 Essential (primary) hypertension; Z79.899 Other long term (current) drug therapy
CPT/HCPCS: 96372; 99284; J1200; J1885; J2360

== ENCOUNTER 2017-11-25 12:53 | Emergency (ER) | payer MEDICARE ==
[2017-11-25 13:09] VITALS: O2SAT 97
[2017-11-25] MEDS ORDERED: BENADRYL 50 MG/ML IV ONE (13:16)
[2017-11-25] MEDS ORDERED: Sodium Chloride 0.9% 1000 ML 1,000 ML IV STA (13:16)
[2017-11-25] MEDS ORDERED: TORAdol 30 mg Injection IV ONE (13:16)
--- NOTE | 2017-11-25 13:21 | ERPHSYRPT ---
- History of Present Illness Time Seen by Provider: 11/25/17 13:12 Source: patient Exam Limitations: no limitations Patient Subjective Stated Complaint: pt states he began having a headache at midnight. states he has been seen in the Er frequently for these headaches. states he seen family on 11/22/17. Triage Nursing Assessment: pt pink, warm, dry. pupils perrl. speach normal. pt alert and oriented x3. pt afebrile. Physician History: 47-year-old white male with history of migraines cerebral palsy high blood pressure seizures Arrives with complaint of a headache top of his head since midnight he has had no fevers no nausea no vomiting does complain of photophobia. Patient states he has a history of migraines. Denies significant past medical history includes migraine, cerebral palsy, high blood pressure, seizure, scrotal mass, foot and ankle surgery. Past Timing/Duration: today Severity: moderate Modifying Factors: Improves With: nothing. Worsens With: eating, immobilization , medication, movement, rest, acetaminophen, ibuprofen Associated Symptoms: headaches, other (photophobia), No nausea, No vomiting, No abdominal pain, No shortness of breath, No heartburn, No diaphoresis, No cough, No chills, No chest pain, No fever, No loss of appetite, No malaise, No rash, No syncope, No seizure, No weakness Allergies/Adverse Reactions: No Known Drug Allergies Allergy (Verified 11/25/17 13:08) Home Medications: Levetiracetam [Keppra 500 mg ] 750 mg PO BID 03/03/17 [History] Lacosamide [Vimpat] 150 mg PO BID 03/13/17 [History] Losartan Potassium 50 mg [Cozaar 50 MG] 50 mg PO DAILY 03/13/17 [History] Fluoxetine HCl 40 mg PO DAILY 07/04/17 [History] Hydrochlorothiazide 25 mg [hydroDIURIL 25 MG] 25 mg PO DAILY 07/04/17 [ History] Ropinirole HCl 1 mg PO HS 07/04/17 [History] Propranolol HCl [Propranolol HCl ER] 120 mg PO HS 08/17/17 [History] Hx Tetanus, Diphtheria Vaccination/Date Given: Yes (up to date) Hx Influenza Vaccination/Date Given: Yes Hx Pneumococcal Vaccination/Date Given: No Immunizations Up to Date: Yes - Review of Systems Constitutional: No Fever, No Chills Eyes: Photophobia, No Discharge, No Eye Pain, No Eye Redness, No Itchy, No Foreign Body Sensation Ears, Nose, & Throat: No Symptoms Respiratory: No Cough, No Dyspnea Cardiac: No Chest Pain, No Edema, No Syncope Abdominal/Gastrointestinal: No Abdominal Pain, No Nausea, No Vomiting, No Diarrhea Genitourinary Symptoms: No Dysuria Musculoskeletal: No Back Pain, No Neck Pain Skin: No Symptoms, No Rash Neurological: No Dizziness, No Focal Weakness, No Sensory Changes Psychological: No Symptoms Endocrine: No Symptoms All Other Systems: Reviewed and Negative - Past Medical History Pertinent Past Medical History: Yes Neurological History: Migraines, Seizures, Other ENT History: No Pertinent History Cardiac History: Hypertension Respiratory History: No Pertinent History Endocrine Medical History: No Pertinent History Musculoskeletal History: Other GI Medical History: No Pertinent History History: No Pertinent History Male Reproductive Disorders: No Pertinent History, Scrotal Mass Other Medical History: Foot/ankle OR. Seizures - Past Surgical History Past Surgical History: Yes Neuro Surgical History: No Pertinent History Cardiac: No Pertinent History Respiratory: No Pertinent History Gastrointestinal: No Pertinent History Genitourinary: No Pertinent History Musculoskeletal: No Pertinent History Male Surgical History: No Pertinent History Other Surgical History: [facility]/07 - Social History Smoking Status: Never smoker Exposure to second hand smoke: No Alcohol Use: None Drug Use: none Patient Lives Alone: No Significant Family History: no pertinent family hx - Nursing Vital Signs Nursing Vital Signs: Initial Vital Signs Temperature 97.5 F 11/25/17 13:04 Pulse Rate 46 L 11/25/17 13:04 Respiratory Rate 18 11/25/17 13:04 Blood Pressure 126/89 11/25/17 13:04 O2 Sat by Pulse Oximetry 97 11/25/17 13:04 Pain Scale Pain Intensity 9 - Physical Exam General Appearance: mild distress Eye Exam: PERRL/EOMI, eyes nml inspection, other (fundi unremarkable) Ears, Nose, Throat Exam: normal ENT inspection, TMs normal, pharynx normal, moist mucous membranes Neck Exam: normal inspection, non-tender, supple, full range of motion Respiratory Exam: normal breath sounds, lungs clear, No respiratory distress Cardiovascular Exam: regular rate/rhythm, normal heart sounds, normal peripheral pulses Gastrointestinal/Abdomen Exam: soft, normal bowel sounds, No tenderness, No mass Back Exam: normal inspection, normal range of motion, No CVA tenderness, No vertebral tenderness Extremity Exam: normal inspection, normal range of motion, pelvis stable Neurologic Exam: alert, 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, cooperative, normal mood/affect, nml cerebellar function, nml station & gait, sensation nml, No motor deficits Skin Exam: normal color, warm, dry, No rash SpO2 Interpretation: normal (97%) SpO2: 97 Oxygen Delivery: Room Air Ordered Tests: Active Orders 24 hr Category Date Time Status IV Insertion STAT Care 11/25/17 13:16 Active Medication Summary Discontinued Medications Generic Name Dose Route Start Last Admin Trade Name Freq PRN Reason Stop Dose Admin Diphenhydramine HCl 25 mg 11/25/17 13:16 11/25/17 13:37 Benadryl 50 Mg/Ml IV 11/25/17 13:17 25 mg STAT ONE Administration Diphenhydramine HCl Confirm 11/25/17 13:35 Benadryl 50 Mg/Ml Administered 11/25/17 13:36 Dose 50 mg .ROUTE .STK-MED ONE Sodium Chloride 1,000 mls @ 999 mls/hr 11/25/17 13:16 11/25/17 13:38 Sodium Chloride 0.9% 1000 Ml IV 11/25/17 14:16 999 mls/hr .Q1H1M STA Administration Sodium Chloride Confirm 11/25/17 13:36 Sodium Chloride 0.9% 1000 Ml Administered 11/25/17 13:37 Dose 1,000 mls @ ud .ROUTE .STK-MED ONE Ketorolac Tromethamine 30 mg 11/25/17 13:16 11/25/17 13:37 Toradol 30 Mg Injection IV 11/25/17 13:17 30 mg STAT ONE Administration Ketorolac Tromethamine Confirm 11/25/17 13:35 Toradol 30 Mg Injection Administered 11/25/17 13:36 Dose 30 mg .ROUTE .STK-MED ONE - Progress Progress: improved Progress Note: 11/25/17 14:20 Patient feeling better. Not completely pain-free but markedly improved after normal saline 1 L, Toradol 30 mg IV and Benadryl 25 mg IV. Will discharge. - Departure Time of Disposition: 14:20 Departure Disposition: Home Clinical Impression: Migraine Qualifiers: Migraine type: unspecified Status migrainosus presence: without status migrainosus Intractability: not intractable Qualified Code(s): G43.909 - Migraine, unspecified, not intractable, without status migrainosus Condition: Fair Critical Care Time: No Referrals: ARCHIE SIDHU [Primary Care Provider] - Instructions: Headache, Adult (DC) Additional Instructions: Return home. Rest in a dark quiet room. Follow-up with your family doctor or neurologist if symptoms recurrent. Return for acute distress or for severe symptoms.
[2017-11-25] MEDS ORDERED: BENADRYL 50 MG/ML ONE (13:35)
[2017-11-25] MEDS ORDERED: TORAdol 30 mg Injection ONE (13:35)
[2017-11-25] MEDS ORDERED: Sodium Chloride 0.9% 1000 ML 1,000 ML ONE (13:36)
[2017-11-25 14:34] VITALS: BP 134/88; PULSE 54
== END 2017-11-25 14:39 | disposition home or self-care (01) ==
LOC: ED 12:53
DX: G43.909 Migraine, unspecified, not intractable, without status migrainosus (principal); Z79.899 Other long term (current) drug therapy; G80.9 Cerebral palsy, unspecified; I10 Essential (primary) hypertension
CPT/HCPCS: 36000; 96360; 96374; 96375; 99284; J1200; J1885

== ENCOUNTER 2017-11-27 18:00 | Emergency (ER) | payer MEDICARE ==
[2017-11-27] MEDS ORDERED: Reglan 10 MG/2 ML IV ONE (18:16)
[2017-11-27] MEDS ORDERED: BENADRYL 50 MG/ML IV ONE (18:16)
[2017-11-27] MEDS ORDERED: BENADRYL 50 MG/ML ONE (18:19)
[2017-11-27] MEDS ORDERED: Reglan 10 MG/2 ML ONE (18:19)
--- NOTE | 2017-11-27 18:27 | ERPHSYRPT ---
- History of Present Illness Time Seen by Provider: 11/27/17 18:09 Source: patient Patient Subjective Stated Complaint: pt here for a migraine headache since 1200 today, took excedrin with no relief Triage Nursing Assessment: pt alert, walked in,resp easy,skin w/d/p.n/v Physician History: CC: headache HX: 47 y/o patient of HALLE Sidhu and Dr Scott. He has hx of seizures and migraine headaches. He has headache for past 2 days, gradually worsening. Worst headache in the past 4 weeks. No fall, injury, or seizure. No fever or chills. No blurred vision. Similar to prior migraines. He is not sure why he came here a couple of days ago. He has had recent follow up with Dr Scott and plans to increase vimpat. Allergies/Adverse Reactions: No Known Drug Allergies Allergy (Verified 11/27/17 18:12) Home Medications: Levetiracetam [Keppra 500 mg ] 750 mg PO BID 03/03/17 [History] Lacosamide [Vimpat] 150 mg PO BID 03/13/17 [History] Losartan Potassium 50 mg [Cozaar 50 MG] 50 mg PO DAILY 03/13/17 [History] Fluoxetine HCl 40 mg PO DAILY 07/04/17 [History] Hydrochlorothiazide 25 mg [hydroDIURIL 25 MG] 25 mg PO DAILY 07/04/17 [ History] Ropinirole HCl 1 mg PO HS 07/04/17 [History] Propranolol HCl [Propranolol HCl ER] 120 mg PO HS 08/17/17 [History] Hx Tetanus, Diphtheria Vaccination/Date Given: Yes Hx Influenza Vaccination/Date Given: Yes Hx Pneumococcal Vaccination/Date Given: No Immunizations Up to Date: Yes - Review of Systems Constitutional: No Fever, No Chills Eyes: No Vision Changes Respiratory: No Cough, No Dyspnea Cardiac: No Chest Pain Abdominal/Gastrointestinal: Nausea, Vomiting, No Abdominal Pain, No Diarrhea Genitourinary Symptoms: No Dysuria Skin: No Rash Neurological: Focal Weakness (chronic right arm), Headache, No Parasthesia All Other Systems: Reviewed and Negative - Past Medical History Pertinent Past Medical History: Yes Neurological History: Migraines, Seizures, Other ENT History: No Pertinent History Cardiac History: Hypertension Respiratory History: No Pertinent History Endocrine Medical History: No Pertinent History Musculoskeletal History: Other GI Medical History: No Pertinent History History: No Pertinent History Male Reproductive Disorders: No Pertinent History, Scrotal Mass Other Medical History: Foot/ankle OR. Seizures - Past Surgical History Past Surgical History: Yes Neuro Surgical History: No Pertinent History Cardiac: No Pertinent History Respiratory: No Pertinent History Gastrointestinal: No Pertinent History Genitourinary: No Pertinent History Musculoskeletal: No Pertinent History Male Surgical History: No Pertinent History Other Surgical History: back sugery 02/07 - Social History Smoking Status: Never smoker Exposure to second hand smoke: No Alcohol Use: None Drug Use: none Patient Lives Alone: No Significant Family History: no pertinent family hx - Nursing Vital Signs Nursing Vital Signs: Initial Vital Signs Temperature 98.3 F 11/27/17 18:04 Pulse Rate 50 L 11/27/17 18:04 Respiratory Rate 16 11/27/17 18:04 Blood Pressure 124/80 11/27/17 18:04 O2 Sat by Pulse Oximetry 96 11/27/17 18:04 Pain Scale Pain Intensity 3 - Physical Exam General Appearance: alert Eye Exam: PERRL/EOMI Ears, Nose, Throat Exam: normal ENT inspection, moist mucous membranes Neck Exam: normal inspection, non-tender, supple, No meningismus Respiratory Exam: normal breath sounds Cardiovascular Exam: regular rate/rhythm Gastrointestinal/Abdominal Exam: soft, No tenderness, No distention Mental Status Exam: alert, 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, 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: normal hearing, normal speech, PERRL Motor/Sensory Exam: no motor deficit (except chronic drawn right hand), no sensory deficit Skin Exam: warm, dry, No rash SpO2 Interpretation: normal SpO2: 96 Oxygen Delivery: Room Air - Course Nursing assessment & vital signs reviewed: Yes Ordered Tests: Active Orders 24 hr Category Date Time Status IV Insertion STAT Care 11/27/17 18:16 Active Oxygen-ED Only NON-REBREATHER 100% Care 11/27/17 18:16 Active VENOUS BLOOD GAS Urgent Lab 11/27/17 18:35 Completed Medication Summary Discontinued Medications Generic Name Dose Route Start Last Admin Trade Name Freq PRN Reason Stop Dose Admin Diphenhydramine HCl 25 mg 11/27/17 18:16 11/27/17 18:21 Benadryl 50 Mg/Ml IV 11/27/17 18:17 25 mg STAT ONE Administration Diphenhydramine HCl Confirm 11/27/17 18:19 Benadryl 50 Mg/Ml Administered 11/27/17 18:20 Dose 50 mg .ROUTE .STK-MED ONE Metoclopramide HCl 10 mg 11/27/17 18:16 11/27/17 18:20 Reglan 10 Mg/2 Ml IV 11/27/17 18:17 10 mg STAT ONE Administration Metoclopramide HCl Confirm 11/27/17 18:19 Reglan 10 Mg/2 Ml Administered 11/27/17 18:20 Dose 10 mg .ROUTE .STK-MED ONE Lab/Rad Data: Laboratory Results 11/27/17 Range/Units 18:35 VBG pH 7.38 (7.32-7.42) VBG pCO2 at Pat Temp 47 (42-55) mm/Hg VBG pO2 at Pat Temp 46 H (25-40) mm/Hg VBG HCO3 27.8 (22-28) meq/L VBG O2 Sat (Giuseppe) 90.1 L (95-100) VBG Base Excess 1.9 (-2.0-2.0) VBG Hemoglobin 14.7 VBG Carboxyhemoglobin 2.7 (0.0-6.9) % T HGB POC Potassium 3.8 (3.5-5.1) - Progress Progress Note: 11/27/17 19:01 WALKER much better after benadryl and reglan and NRB. Instr given. Counseled pt/family regarding: lab results (nl CO), diagnosis, need for follow- up - Departure Time of Disposition: 19:02 Departure Disposition: Home Clinical Impression: Migraine headache Qualifiers: Migraine type: without aura Status migrainosus presence: without status migrainosus Intractability: not intractable Qualified Code(s): G43.009 - Migraine without aura, not intractable, without status migrainosus Condition: Stable Critical Care Time: No Referrals: ARCHIE SIDHU [Primary Care Provider] - Instructions: Headache, Adult (DC) Additional Instructions: HEADACHE 1. After discharge from the emergency department, you should rest at home in a cool, dark, quiet place for 12-24 hours. 2. If any of the following signs or symptoms are noticed, you should be re- evaluated right away: Wayne Visual changes B. Stiff Neck C. Change in quality or location of pain D. Fever E. Recurrent vomiting 3. If pain medications were prescribed or given, they may cause drowsiness. No driving tonite. Follow up with DIRECTOR OF SOCIAL WORK Olamide.
[2017-11-27 18:36] LABS: VBG BASE EXCESS 1.9 (-2.0-2.0); VBG CARBOXYHEMOGLOBIN 2.7 % T HGB (0.0-6.9); VBG HCO3- 27.8 meq/L (22-28); VBG HEMOGLOBIN 14.7; VBG O2 SATURATION 90.1 (95-100); VBG POTASSIUM 3.8 (3.5-5.1); VBG pH 7.38 (7.32-7.42)
[2017-11-27 19:15] VITALS: BP 137/83; PULSE 70; O2SAT 98
== END 2017-11-27 19:14 | disposition home or self-care (01) ==
LOC: ED 18:00
DX: G43.009 Migraine without aura, not intractable, without status migrainosus (principal); Z79.899 Other long term (current) drug therapy
CPT/HCPCS: 36000; 82805; 96374; 96375; 99284; J1200

== ENCOUNTER 2017-11-30 13:18 | Emergency (ER) | payer MEDICARE ==
[2017-11-30 14:34] VITALS: BP 122/77; O2SAT 94
[2017-11-30] MEDS ORDERED: Reglan 10 MG/2 ML IV ONE (14:41)
[2017-11-30] MEDS ORDERED: Sodium Chloride 0.9% 1000 ML 1,000 ML IV STA (14:41)
[2017-11-30] MEDS ORDERED: BENADRYL 50 MG/ML IM ONE (14:41)
--- NOTE | 2017-11-30 14:44 | ERPHSYRPT ---
- History of Present Illness Time Seen by Provider: 11/30/17 14:30 Source: patient Exam Limitations: clinical condition Patient Subjective Stated Complaint: headache frontal radiating across the top of his head toward the back Triage Nursing Assessment: pt alert and oriented x3, able to answer questions apporpriately, speech clear, history succinct, skin pink warm dry, resp easy and non labored Physician History: PATIENT WITH A HISTORY OF MIGRAINE HEADACHES, CONGENITAL BRAIN MALFORMATION Allergies/Adverse Reactions: No Known Drug Allergies Allergy (Verified 11/27/17 18:12) Home Medications: Levetiracetam [Keppra 500 mg ] 750 mg PO BID 03/03/17 [History] Lacosamide [Vimpat] 150 mg PO BID 03/13/17 [History] Losartan Potassium 50 mg [Cozaar 50 MG] 50 mg PO DAILY 03/13/17 [History] Fluoxetine HCl 40 mg PO DAILY 07/04/17 [History] Hydrochlorothiazide 25 mg [hydroDIURIL 25 MG] 25 mg PO DAILY 07/04/17 [ History] Ropinirole HCl 1 mg PO HS 07/04/17 [History] Propranolol HCl [Propranolol HCl ER] 120 mg PO HS 08/17/17 [History] Hx Tetanus, Diphtheria Vaccination/Date Given: Yes Hx Influenza Vaccination/Date Given: Yes Hx Pneumococcal Vaccination/Date Given: Yes - Past Medical History Pertinent Past Medical History: Yes Neurological History: Epilepsy ENT History: No Pertinent History Cardiac History: No Pertinent History Respiratory History: No Pertinent History Endocrine Medical History: No Pertinent History Musculoskeletal History: No Pertinent History GI Medical History: No Pertinent History History: No Pertinent History Psycho-Social History: No Pertinent History Male Reproductive Disorders: No Pertinent History, Scrotal Mass Other Medical History: HTN - Past Surgical History Past Surgical History: Yes Neuro Surgical History: No Pertinent History Cardiac: No Pertinent History Respiratory: No Pertinent History Gastrointestinal: No Pertinent History Genitourinary: No Pertinent History Musculoskeletal: No Pertinent History Male Surgical History: No Pertinent History Other Surgical History: spinal fusion - Social History Smoking Status: Never smoker Exposure to second hand smoke: No Alcohol Use: None Drug Use: none Patient Lives Alone: No Significant Family History: no pertinent family hx - Nursing Vital Signs Nursing Vital Signs: Initial Vital Signs Temperature 97.8 F 11/30/17 14:26 Pulse Rate 84 11/30/17 14:26 Respiratory Rate 20 11/30/17 14:26 Blood Pressure 122/77 11/30/17 14:26 O2 Sat by Pulse Oximetry 94 L 11/30/17 14:26 Pain Scale Pain Intensity 9 - Physical Exam SpO2: 94 Oxygen Delivery: Room Air - CT Exams Head CT Interpretation: Discussed w/radiologist, No/Intracranial Hemorrhag (THE RIGHT CEREBRAL HEMISPHERE IS LARGER THAN THE LEFT, STABLE ASYMMETRIC RIGHT LATERAL VENTRICLE ENLARGEMENT, CORPUS CALLOSAL, AGENESIS/HYPOGENESIS, AND LEFT HENISPHERIC SUBFALCINE EXTENSION INTO THE RIGHT HEMISPHERE) Ordered Tests: Active Orders 24 hr Category Date Time Status IV Insertion STAT Care 11/30/17 14:41 Active HEAD WITHOUT CONTRAST [CT] Stat Exams 11/30/17 14:41 Completed BMP Stat Lab 11/30/17 15:00 Completed CBC W DIFF Stat Lab 11/30/17 15:00 Completed Medication Summary Discontinued Medications Generic Name Dose Route Start Last Admin Trade Name Freq PRN Reason Stop Dose Admin Diphenhydramine HCl 50 mg 11/30/17 14:41 11/30/17 15:20 Benadryl 50 Mg/Ml IM 11/30/17 14:42 50 mg STAT ONE Administration Diphenhydramine HCl Confirm 11/30/17 15:12 Benadryl 50 Mg/Ml Administered 11/30/17 15:13 Dose 50 mg .ROUTE .STK-MED ONE Sodium Chloride 1,000 mls @ 500 mls/hr 11/30/17 14:41 11/30/17 15:21 Sodium Chloride 0.9% 1000 Ml IV 11/30/17 16:40 500 mls/hr .Q2H STA Administration Sodium Chloride Confirm 11/30/17 15:12 Sodium Chloride 0.9% 500 Ml Administered 11/30/17 15:13 Dose 500 mls @ ud IV .STK-MED ONE Ketorolac Tromethamine 30 mg 11/30/17 16:24 Toradol 30 Mg Injection IV 11/30/17 16:25 STAT ONE Metoclopramide HCl 10 mg 11/30/17 14:41 11/30/17 15:21 Reglan 10 Mg/2 Ml IV 11/30/17 14:42 10 mg STAT ONE Administration Metoclopramide HCl Confirm 11/30/17 15:12 Reglan 10 Mg/2 Ml Administered 11/30/17 15:13 Dose 10 mg .ROUTE .STK-MED ONE Lab/Rad Data: Laboratory Result Diagrams 11/30/17 15:00 11/30/17 15:00 Laboratory Results 11/30/17 11/30/17 Range/Units 15:00 15:00 WBC 6.1 (4.0-10.5) K/mm3 RBC 4.51 (4.1-5.6) M/mm3 Hgb 14.2 (12.5-18.0) gm/dl Hct 41.8 L (42-50) % MCV 92.7 (78-100) fl MCH 31.5 (26-32) pg MCHC 34.0 (32-36) g/dl RDW 12.1 (11.5-14.0) % Plt Count 189 (150-450) K/mm3 MPV 10.4 H (6-9.5) fl Gran % 49.0 (36.0-66.0) % Lymphocytes % 39.4 (24.0-44.0) % Monocytes % 8.4 (0.0-12.0) % Eosinophils % 3.0 (0.00-5.0) % Basophils % 0.2 (0.0-0.4) % Basophils # 0.01 (0-0.4) Sodium 141 (136-145) mEq/L Potassium 3.9 (3.5-5.1) mEq/L Chloride 105 (98-107) mEq/L Carbon Dioxide 24.7 (21-32) mEq/L Anion Gap 14.8 (5-15) MEQ/L BUN 23 H (9-20) mg/dL Creatinine 1.26 (0.55-1.30) mg/dl Estimated GFR > 60 ML/MIN Glucose 108 (70-110) MG/DL Calcium 8.8 (8.5-10.1) mg/dL - Progress Progress: improved, re-examined Counseled pt/family regarding: diagnosis - Departure Time of Disposition: 16:40 Departure Disposition: Home Clinical Impression: MIGRAINE CEPHALGIA, CONGENITAL BRAIN MALFORMATION Condition: Stable Critical Care Time: No Referrals: ARCHIE SIDHU [Primary Care Provider] - Additional Instructions: CONSULT YOUR PRIMARY CARE PROVIDER AND NEUROLOGIST FOR PAIN MANAGEMENT. CONTINUE ALL CURRENT MEDICATIONS.
[2017-11-30 15:00] VITALS: PULSE 48
--- NOTE | 2017-11-30 15:07 | XRAY ---
Indication: Migraine headaches. Multiple contiguous axial images obtained through the head without contrast. Comparison: June 23, 2017. Again the right cerebral hemisphere is larger than the left. Stable asymmetric right lateral ventricle enlargement, corpus callosal agenesis/hypogenesis, and left hemispheric subfalcine extension into the right hemisphere. No acute intracranial hemorrhage or abnormal extra-axial fluid collection. Fourth ventricle is midline. Bony calvarium intact. Visualized paranasal sinuses and mastoid air cells are pneumatized and clear. Impression: 1. Stable congenital brain malformation as detailed. 2. No new or acute intracranial abnormalities. CTDI 67.99
[2017-11-30] MEDS ORDERED: BENADRYL 50 MG/ML ONE (15:12)
[2017-11-30] MEDS ORDERED: Reglan 10 MG/2 ML ONE (15:12)
[2017-11-30] MEDS ORDERED: Sodium Chloride 0.9% 500 ML 500 ML IV ONE (15:12)
[2017-11-30 15:19] LABS: BASOPHIL % 0.2 % (0.0-0.4); Basophil (Absolute #) 0.01 (0-0.4); Eosinophil (Absolute #) 0.18 (0-0.5); Granulocyte Absolute (ANC) 2.99 (1.4-6.9); Hematocrit 41.8 % (42-50); Hemoglobin 14.2 gm/dl (12.5-18.0); Lymphocytes % 39.4 % (24.0-44.0); Mean Cell Volume 92.7 fl (78-100); Mean Corpuscular Hemoglobin 31.5 pg (26-32); Mean Platelet Volume 10.4 fl (6-9.5); Monocyte (Absolute #) 0.51 (0.0-1.3); Monocytes % 8.4 % (0.0-12.0); Platelet Count 189 K/mm3 (150-450); Red Blood Count 4.51 M/mm3 (4.1-5.6); Red Cell Distribution Width 12.1 % (11.5-14.0); White Blood Count 6.1 K/mm3 (4.0-10.5)
[2017-11-30 15:28] LABS: ANION GAP 14.8 MEQ/L (5-15); BLOOD UREA NITROGEN 23 mg/dL (9-20); CHLORIDE 105 mEq/L (98-107); Calcium 8.8 mg/dL (8.5-10.1); Carbon Dioxide 24.7 mEq/L (21-32); Creatinine 1 1.26 mg/dl (0.55-1.30); EST GLOMERULAR FILTRATION RATE > 60 ML/MIN; Glucose 108 MG/DL (70-110); Potassium 3.9 mEq/L (3.5-5.1); SODIUM 141 mEq/L (136-145)
[2017-11-30] MEDS ORDERED: TORAdol 30 mg Injection ONE ×2 (17:03→17:17)
[2017-11-30] MEDS: TORAdol 30 mg Injection IV ONE ×2 (17:18→17:20)
== END 2017-11-30 17:27 | disposition home or self-care (01) ==
LOC: ED 13:18
DX: G43.909 Migraine, unspecified, not intractable, without status migrainosus (principal); Q04.9 Congenital malformation of brain, unspecified; G40.909 Epilepsy, unspecified, not intractable, without status epilepticus; I10 Essential (primary) hypertension
CPT/HCPCS: 36000; 36415; 70450; 80048; 85025; 96360; 96361; 96374; 96375; 99284; J1200; J1885

== ENCOUNTER 2017-12-06 17:06 | Emergency (ER) | payer MEDICARE ==
[2017-12-06] MEDS ORDERED: MOTRIN 600 MG PO ONE (17:52)
[2017-12-06] MEDS ORDERED: MOTRIN 600 MG ONE (17:57)
--- NOTE | 2017-12-06 17:57 | ERPHSYRPT ---
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 He was on a [place]ayito changing a light bulb. He fell. Called . Pain in right ankle. No other injuries. No head injury, neck pain, back pain. Pain is severe. He uses APAP at home for pain. Occurred: this afternoon Lower Extremities Pain: ankle: right Allergies/Adverse Reactions: No Known Drug Allergies Allergy (Verified 12/06/17 17:39) Home Medications: Levetiracetam [Keppra 500 mg ] 750 mg PO BID 03/03/17 [History] Lacosamide [Vimpat] 150 mg PO BID 03/13/17 [History] Losartan Potassium 50 mg [Cozaar 50 MG] 50 mg PO DAILY 03/13/17 [History] Fluoxetine HCl 40 mg PO DAILY 07/04/17 [History] Hydrochlorothiazide 25 mg [hydroDIURIL 25 MG] 25 mg PO DAILY 07/04/17 [ History] Ropinirole HCl 1 mg PO HS 07/04/17 [History] Propranolol HCl [Propranolol HCl ER] 120 mg PO HS 08/17/17 [History] Hx Tetanus, Diphtheria Vaccination/Date Given: Yes Hx Influenza Vaccination/Date Given: Yes Hx Pneumococcal Vaccination/Date Given: Yes Immunizations Up to Date: Yes - Review of Systems Constitutional: No Fever, No Chills Eyes: No Vision Changes Respiratory: No Dyspnea Cardiac: No Chest Pain Abdominal/Gastrointestinal: No Abdominal Pain Musculoskeletal: Joint Pain (right ankle), No Back Pain, No Neck Pain Neurological: Focal Weakness (chronic right sided) All Other Systems: Reviewed and Negative - Past Medical History Pertinent Past Medical History: Yes Neurological History: Epilepsy ENT History: No Pertinent History Cardiac History: No Pertinent History Respiratory History: No Pertinent History Endocrine Medical History: No Pertinent History Musculoskeletal History: No Pertinent History GI Medical History: No Pertinent History History: No Pertinent History Psycho-Social History: No Pertinent History Male Reproductive Disorders: No Pertinent History, Scrotal Mass Other Medical History: HTN - Past Surgical History Past Surgical History: Yes Neuro Surgical History: No Pertinent History Cardiac: No Pertinent History Respiratory: No Pertinent History Gastrointestinal: No Pertinent History Genitourinary: No Pertinent History Musculoskeletal: No Pertinent History Male Surgical History: No Pertinent History Other Surgical History: spinal fusion - Social History Smoking Status: Never smoker Exposure to second hand smoke: No Alcohol Use: None Drug Use: none Patient Lives Alone: No Significant Family History: no pertinent family hx - Nursing Vital Signs Nursing Vital Signs: Initial Vital Signs Temperature 98.1 F 12/06/17 17:34 Pulse Rate 50 L 12/06/17 17:34 Respiratory Rate 20 12/06/17 17:34 Blood Pressure 115/75 12/06/17 17:34 O2 Sat by Pulse Oximetry 96 12/06/17 17:34 Pain Scale Pain Intensity 10 - Physical Exam General Appearance: alert Eyes, Ears, Nose, Throat Exam: moist mucous membranes Neck Exam: normal inspection, non-tender, supple, No tenderness midline Cardiovascular/Respiratory Exam: chest non-tender, normal breath sounds, regular rate/rhythm Gastrointestinal/Abdominal Exam: non-tender, soft Back Exam: normal inspection, No vertebral tenderness Neuro/Tendon Exam: normal sensation, normal motor functions (except drawn right arm and muscle atrophy right leg) Mental Status Exam: alert, 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, cooperative Skin Exam: warm, dry SpO2: 96 Oxygen Delivery: Room Air Comments: Tenderness at both right ankle malleoli without swelling or bruising. No fibular head tenderness. No foot tenderness. Pulse intact. - Course Nursing assessment & vital signs reviewed: Yes - Radiology Exams right ankle X-ray Interpretation: Interpreted by me (no fracture, ankle intact. Multiple screws/hardware in foot reconstruction) Ordered Tests: Active Orders 24 hr Category Date Time Status Raphael Bandage Application -[facility] STAT Care 12/06/17 18:10 Active Cold Application STAT Care 12/06/17 17:52 Active Splint STAT Care 12/06/17 18:10 Active ANKLE (3 VIEWS) Stat Exams 12/06/17 17:53 Taken Medication Summary Discontinued Medications Generic Name Dose Route Start Last Admin Trade Name Freq PRN Reason Stop Dose Admin Ibuprofen 600 mg 12/06/17 17:52 12/06/17 17:58 Motrin 600 Mg PO 12/06/17 17:53 600 mg STAT ONE Administration Ibuprofen Confirm 12/06/17 17:57 Motrin 600 Mg Administered 12/06/17 17:58 Dose 600 mg .ROUTE .STK-MED ONE - Progress Progress Note: 12/06/17 18:11 Advised cane and follow up with HALLE Sidhu as well as fall precautions. Counseled pt/family regarding: diagnosis, need for follow-up, rad results - Departure Time of Disposition: 18:12 Departure Disposition: Home Clinical Impression: Right ankle sprain Qualifiers: Encounter type: initial encounter Involved ligament of ankle: unspecified ligament Qualified Code(s): S93.401A - Sprain of unspecified ligament of right ankle, initial encounter Condition: Stable Critical Care Time: No Referrals: ARCHIE SIDHU [Primary Care Provider] - Instructions: Preventing Falls, How to Use a Cane, Ankle Sprain Additional Instructions: SPRAINS/STRAINS/CONTUSIONS 1. Rest the affected area as much as possible for the next few days. 2. Apply ice to the affected area for 20-30 minutes at a time, several times a day. 3. If you receive an elastic wrap, wear it only while awake for comfort and support. Re-wrap the elastic wrap if it feels too tight or too loose. 4. If swelling is present, elevate the affected part above the level of the heart for at least 2 to 3 days. 5. Use splints, slings, or crutches as instructed. 6. Watch for severe swelling, coldness, numbness, and discoloration of the fingers and toes. See your family physician or return to the emergency department if any of these are noted. Raphael wrap and air cast. Rx ibuprofen to [facility]. Rx cane. Follow up with HALLE Sidhu. Prescriptions: Ibuprofen 600 mg PO Q6H PRN PRN #20 tablet PRN Reason: Pain
[2017-12-06 18:37] VITALS: BP 113/78; PULSE 80; O2SAT 98
--- NOTE | 2017-12-07 08:57 | XRAY ---
Indication: Pain following fall. Comparison: None 3 views of the right ankle demonstrates old mid to hindfoot fractures with intact orthopedic hardware. No acute fracture, dislocation, suspicious bony lesions, or soft tissue abnormalities.
== END 2017-12-06 18:37 | disposition home or self-care (01) ==
LOC: ED 17:06
DX: S93.401A Sprain of unspecified ligament of right ankle, initial encounter (principal); W17.89XA Other fall from one level to another, initial encounter; Z79.899 Other long term (current) drug therapy
CPT/HCPCS: 73610; 99282; 99283; A9270-GY

== ENCOUNTER 2018-03-14 10:59 | Emergency (ER) | payer MEDICARE ==
[2018-03-14 11:10] VITALS: BP 145/93; O2SAT 99
[2018-03-14] MEDS ORDERED: TORAdol 30 mg Injection IM ONE (11:20)
[2018-03-14] MEDS ORDERED: TORAdol 30 mg Injection ONE (11:22)
--- NOTE | 2018-03-14 11:22 | ERPHSYRPT ---
- History of Present Illness Time Seen by Provider: 03/14/18 11:16 Source: patient Exam Limitations: no limitations Patient Subjective Stated Complaint: Pt states "I was working on a disc and it fell and landed on my hand. It took me about 10 minutes to get the disc off my right hand. The worst part is it fell on my bad hand." Triage Nursing Assessment: Pt alert and oriented X 3, skin pwd. Pt ambulates with an upright steady gait. Pt right hand has no swelling, no bruising noted. no other injuries noted. Physician History: The patient is a 47-year-old left-handed male with his complaining that a metal elvin on a piece of farm equipment fell onto his right hand just before being seen. He states the metal elvin. His right hand between the elvin and another piece of metal. He was able to pull the elvin off of his right hand with his left hand. His right hand has had a previous injury and is not very functional. After the injury today, he states it is very painful for him to attempt to move his fingers on his right hand. His past medical history is significant for hypertension, asthma, seizures, migraine headaches, and depression. Occurred: just prior to arrival Method of Injury: direct blow Quality: constant, throbbing Severity of Pain-Max: moderate Severity of Pain-Current: moderate Extremities Pain Location: hand: right Modifying Factors: Improves With: nothing Associated Symptoms: none Allergies/Adverse Reactions: No Known Drug Allergies Allergy (Verified 12/06/17 17:39) Home Medications: Levetiracetam [Keppra 500 mg ] 750 mg PO BID 03/03/17 [History] Lacosamide [Vimpat] 150 mg PO BID 03/13/17 [History] Losartan Potassium 50 mg [Cozaar 50 MG] 50 mg PO DAILY 03/13/17 [History] Fluoxetine HCl 40 mg PO DAILY 07/04/17 [History] Hydrochlorothiazide 25 mg [hydroDIURIL 25 MG] 25 mg PO DAILY 07/04/17 [ History] Ropinirole HCl 1 mg PO HS 07/04/17 [History] Propranolol HCl [Propranolol HCl ER] 120 mg PO HS 08/17/17 [History] Hx Tetanus, Diphtheria Vaccination/Date Given: Yes Hx Influenza Vaccination/Date Given: Yes Hx Pneumococcal Vaccination/Date Given: No Immunizations Up to Date: Yes - Review of Systems Constitutional: No Fever, No Chills Eyes: No Symptoms Ears, Nose, & Throat: No Symptoms Respiratory: No Cough, No Dyspnea Cardiac: No Chest Pain, No Edema, No Syncope Abdominal/Gastrointestinal: No Abdominal Pain, No Nausea, No Vomiting, No Diarrhea Genitourinary Symptoms: No Dysuria Musculoskeletal: Injury Skin: No Rash Neurological: No Dizziness, No Focal Weakness, No Sensory Changes Psychological: No Symptoms Endocrine: No Symptoms Hematologic/Lymphatic: No Symptoms Immunological/Allergic: No Symptoms All Other Systems: Reviewed and Negative - Past Medical History Pertinent Past Medical History: Yes Neurological History: Epilepsy ENT History: No Pertinent History Cardiac History: No Pertinent History Respiratory History: No Pertinent History Endocrine Medical History: No Pertinent History Musculoskeletal History: No Pertinent History GI Medical History: No Pertinent History History: No Pertinent History Psycho-Social History: No Pertinent History Male Reproductive Disorders: No Pertinent History, Scrotal Mass Other Medical History: HTN - Past Surgical History Past Surgical History: Yes Neuro Surgical History: No Pertinent History Cardiac: No Pertinent History Respiratory: No Pertinent History Gastrointestinal: No Pertinent History Genitourinary: No Pertinent History Musculoskeletal: No Pertinent History Male Surgical History: No Pertinent History Other Surgical History: spinal fusion - Social History Smoking Status: Never smoker Exposure to second hand smoke: No Alcohol Use: None Drug Use: none Patient Lives Alone: No Significant Family History: no pertinent family hx - Nursing Vital Signs Nursing Vital Signs: Initial Vital Signs Temperature 99.1 F 03/14/18 11:05 Pulse Rate 82 03/14/18 11:05 Respiratory Rate 18 03/14/18 11:05 Blood Pressure 145/93 03/14/18 11:05 O2 Sat by Pulse Oximetry 99 03/14/18 11:05 Pain Scale Pain Intensity 6 - Physical Exam General Appearance: alert Eyes, Ears, Nose, Throat Exam: moist mucous membranes Neck Exam: non-tender, supple Cardiovascular/Respiratory Exam: chest non-tender, normal breath sounds, regular rate/rhythm, no respiratory distress Abdominal Exam: non-tender, No guarding Back Exam: normal inspection, No vertebral tenderness Shoulder Exam: normal inspection Elbow/Forearm Exam: normal inspection Wrist Exam: normal inspection Hand Exam: soft tissue tenderness (soft tissue tenderness across mid right hand. no swelling. no bruising.) Neuro/Tendon Exam: normal sensation, normal motor functions Mental Status Exam: alert, 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, cooperative Skin Exam: normal color, warm, dry SpO2 Interpretation: normal SpO2: 99 Oxygen Delivery: Room Air - Radiology Exams Right Hand X-ray Interpretation: Reviewed by me, Teleradiologist Report, Negative (per Dr [place]) Ordered Tests: Active Orders 24 hr Category Date Time Status HAND (MINIMUM 3 VIEWS) Stat Exams 03/14/18 11:26 Completed Medication Summary Discontinued Medications Generic Name Dose Route Start Last Admin Trade Name Monalisa PRN Reason Stop Dose Admin Ketorolac Tromethamine 60 mg 03/14/18 11:20 03/14/18 11:23 Toradol 30 Mg Injection IM 03/14/18 11:21 60 mg STAT ONE Administration Ketorolac Tromethamine Confirm 03/14/18 11:22 Toradol 30 Mg Injection Administered 03/14/18 11:23 Dose 60 mg .ROUTE .STK-MED ONE - Progress Progress: improved Counseled pt/family regarding: diagnosis, rad results - Departure Time of Disposition: 12:10 Departure Disposition: Home Clinical Impression: Contusion of right hand Condition: Stable Critical Care Time: No Referrals: ARCHIE SIDHU [Primary Care Provider] - Additional Instructions: You have a contusion to your right hand. There are no broken bones on the x- ray. You were given Toradol 60 mg by IM in the ER. You may continue to take naproxen 500 mg 2 times a day as needed. Follow-up with your primary care doctor as needed. Prescriptions: Naproxen 500 mg PO BID PRN #30 tablet.
[2018-03-14 12:02] VITALS: PULSE 70
--- NOTE | 2018-03-14 12:07 | XRAY ---
Indication: Pain following injury. Comparison: None 3 views of the right hand obtained. No bony, articular, or soft tissue abnormalities.
== END 2018-03-14 12:16 | disposition home or self-care (01) ==
LOC: ED 10:59
DX: S60.221A Contusion of right hand, initial encounter (principal); W20.8XXA Other cause of strike by thrown, projected or falling object, initial encounter; Y92.79 Other farm location as the place of occurrence of the external cause; I10 Essential (primary) hypertension; Z79.899 Other long term (current) drug therapy
CPT/HCPCS: 73130; 96372; 99284; J1885

== ENCOUNTER 2018-03-29 16:29 | Emergency (ER) | payer MEDICARE ==
[2018-03-29 18:14] VITALS: BP 138/76; O2SAT 98
[2018-03-29] MEDS ORDERED: TORAdol 30 mg Injection IM ONE (20:10)
[2018-03-29] MEDS ORDERED: DECADRON 10MG INJ. IM ONE (20:10)
--- NOTE | 2018-03-29 20:15 | ERPHSYRPT ---
- History of Present Illness Time Seen by Provider: 03/29/18 20:10 Source: patient, family Exam Limitations: no limitations Patient Subjective Stated Complaint: Pt states "I got sunburned 3 days ago and it is not going away. It is making me not feel well." Triage Nursing Assessment: Pt alert and oriented X 3, skin pwd. PT ambulates with an upright steady gait, able to speak in clear full sentences. PT skin is red/ non blistered torso. Physician History: The patient is a 47-year-old male with his complaining that he fell asleep while sunbathing on Tuesday. He has had a severe sunburn on his chest and legs. He has tried Tylenol and ibuprofen without relief. He has tried some aloe ointment that has not helped either. There are no blisters. His skin is just red and painful. His past medical history significant for seizures and hypertension. Timing/Duration: day(s) (4), gradual onset, worse Quality: burning, painful Severity: moderate Location: torso (chest), extremities (legs) Possible Causes: other (sun burn) Associated Symptoms: rash, No blisters Allergies/Adverse Reactions: No Known Drug Allergies Allergy (Verified 12/06/17 17:39) Home Medications: Levetiracetam [Keppra 500 mg ] 750 mg PO BID 03/03/17 [History] Lacosamide [Vimpat] 150 mg PO BID 03/13/17 [History] Losartan Potassium 50 mg [Cozaar 50 MG] 50 mg PO DAILY 03/13/17 [History] Fluoxetine HCl 40 mg PO DAILY 07/04/17 [History] Hydrochlorothiazide 25 mg [hydroDIURIL 25 MG] 25 mg PO DAILY 07/04/17 [ History] Ropinirole HCl 1 mg PO HS 07/04/17 [History] Propranolol HCl [Propranolol HCl ER] 120 mg PO HS 08/17/17 [History] Hx Tetanus, Diphtheria Vaccination/Date Given: Yes Hx Influenza Vaccination/Date Given: Yes Hx Pneumococcal Vaccination/Date Given: Yes Immunizations Up to Date: Yes - Review of Systems Constitutional: No Fever, No Chills Eyes: No Symptoms Ears, Nose, & Throat: No Symptoms Respiratory: No Cough, No Dyspnea Cardiac: No Chest Pain, No Edema, No Syncope Abdominal/Gastrointestinal: No Abdominal Pain, No Nausea, No Vomiting, No Diarrhea Genitourinary Symptoms: No Dysuria Musculoskeletal: No Back Pain, No Neck Pain Skin: Rash (sunburn) Neurological: No Dizziness, No Focal Weakness, No Sensory Changes Psychological: No Symptoms Endocrine: No Symptoms Hematologic/Lymphatic: No Symptoms Immunological/Allergic: No Symptoms All Other Systems: Reviewed and Negative - Past Medical History Pertinent Past Medical History: Yes Neurological History: Epilepsy ENT History: No Pertinent History Cardiac History: No Pertinent History Respiratory History: No Pertinent History Endocrine Medical History: No Pertinent History Musculoskeletal History: No Pertinent History GI Medical History: No Pertinent History History: No Pertinent History Psycho-Social History: No Pertinent History Male Reproductive Disorders: No Pertinent History, Scrotal Mass Other Medical History: HTN - Past Surgical History Past Surgical History: Yes Neuro Surgical History: No Pertinent History Cardiac: No Pertinent History Respiratory: No Pertinent History Gastrointestinal: No Pertinent History Genitourinary: No Pertinent History Musculoskeletal: No Pertinent History Male Surgical History: No Pertinent History Other Surgical History: spinal fusion - Social History Smoking Status: Never smoker Exposure to second hand smoke: No Alcohol Use: None Drug Use: none Patient Lives Alone: No Significant Family History: no pertinent family hx - Nursing Vital Signs Nursing Vital Signs: Initial Vital Signs Temperature 97.6 F 03/29/18 16:49 Pulse Rate 86 03/29/18 16:49 Respiratory Rate 16 03/29/18 16:49 Blood Pressure 141/83 03/29/18 16:49 O2 Sat by Pulse Oximetry 97 03/29/18 16:49 Pain Scale Pain Intensity 8 - Physical Exam General Appearance: no apparent distress, alert Eye Exam: PERRL/EOMI, eyes nml inspection Ears, Nose, Throat Exam: normal ENT inspection, pharynx normal, moist mucous membranes Neck Exam: normal inspection, non-tender, supple, full range of motion Respiratory Exam: normal breath sounds, lungs clear, No respiratory distress Cardiovascular Exam: regular rate/rhythm, normal heart sounds Gastrointestinal/Abdomen Exam: soft, mass, No tenderness Rectal Exam: not done Back Exam: normal inspection, normal range of motion, No CVA tenderness, No vertebral tenderness Extremity Exam: normal inspection, normal range of motion Neurologic Exam: alert, 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, cooperative, normal mood/affect, sensation nml, No motor deficits Skin Exam: other (Examination of the skin over the anterior shoulders, chest, abdomen, bilateral anterior thighs, and anterior lower legs is significant for erythematous skin without blisters or peeling.) SpO2: 98 Oxygen Delivery: Room Air - Departure Time of Disposition: 20:14 Departure Disposition: Home Clinical Impression: Sunburn of first degree Condition: Stable Critical Care Time: No Referrals: ARCHIE SIDHU [Primary Care Provider] - Additional Instructions: You have a first-degree sunburn over your chest and legs. You were given Toradol 60 mg and Decadron 10 mg by IM in the ER. By [id number] lidocaine spray and use as directed and as needed. Take Tylenol 1000 mg as needed. Follow-up with your primary medical doctor as needed.
[2018-03-29] MEDS ORDERED: DECADRON 10MG INJ. ONE (20:21)
[2018-03-29] MEDS ORDERED: TORAdol 30 mg Injection ONE (20:21)
[2018-03-29 20:38] VITALS: PULSE 86
== END 2018-03-29 20:38 | disposition home or self-care (01) ==
LOC: ED 16:29
DX: L55.0 Sunburn of first degree (principal); Z79.899 Other long term (current) drug therapy
CPT/HCPCS: 96372; 99284; J1100; J1885

== ENCOUNTER 2018-04-23 19:45 | Emergency (ER) | payer MEDICARE ==
--- NOTE | 2018-04-23 20:10 | ERPHSYRPT ---
- History of Present Illness Time Seen by Provider: 04/23/18 19:59 Source: patient Patient Subjective Stated Complaint: pt states the last thing he remembers he was mowing his yard; pt had syncopal episode while mowing; pt states he cannot feel anything from his midthighs distal to his feet. Triage Nursing Assessment: pt a&o x3; skin p, w, & clammy; pt appears slow to answer questions but answers appropriately; tranported to er per ems; no other distress noted upon arrival. Physician History: The patient is a 47-year-old male with his brought in by ambulance from home where the states that she saw him "pass out" after mowing the yard with a self-propelled push mower in severe heat this afternoon. She states he had finished mowing and was leaning up against a close line pole when he dropped to the ground. She had a friend help lift him into a chair. He was able to talk at that time. He was lethargic. She called the ambulance. He states he cannot feel anything in both legs from the knees down to his feet. He is able to move his legs and his feet. His states that immediately after the incident, he was very sweaty. He has a past medical history of seizures, asthma, hypertension, and depression. Witnessed: by family Prior Episodes: single episode today Timing/Duration: today, hour(s) (1), resolved prior to arrival, sudden, improved Precipitating Factors: other (mowing in extreme heat) Loss of Consciousness: brief (seconds) Charcter of event(s): collapsed Allergies/Adverse Reactions: No Known Drug Allergies Allergy (Verified 04/23/18 19:57) Home Medications: Levetiracetam [Keppra 500 mg ] 750 mg PO BID 03/03/17 [History] Lacosamide [Vimpat] 150 mg PO BID 03/13/17 [History] Losartan Potassium 50 mg [Cozaar 50 MG] 50 mg PO DAILY 03/13/17 [History] Fluoxetine HCl 40 mg PO DAILY 07/04/17 [History] Hydrochlorothiazide 25 mg [hydroDIURIL 25 MG] 25 mg PO DAILY 07/04/17 [ History] Ropinirole HCl 1 mg PO HS 07/04/17 [History] Propranolol HCl [Propranolol HCl ER] 120 mg PO HS 08/17/17 [History] Hx Tetanus, Diphtheria Vaccination/Date Given: Yes Hx Influenza Vaccination/Date Given: Yes Hx Pneumococcal Vaccination/Date Given: No Immunizations Up to Date: No - Past Medical History Pertinent Past Medical History: Yes Neurological History: Epilepsy ENT History: No Pertinent History Cardiac History: No Pertinent History Respiratory History: No Pertinent History Endocrine Medical History: No Pertinent History Musculoskeletal History: No Pertinent History GI Medical History: No Pertinent History History: No Pertinent History Psycho-Social History: No Pertinent History Male Reproductive Disorders: No Pertinent History, Scrotal Mass Other Medical History: HTN - Past Surgical History Past Surgical History: Yes Neuro Surgical History: No Pertinent History Cardiac: No Pertinent History Respiratory: No Pertinent History Gastrointestinal: No Pertinent History Genitourinary: No Pertinent History Musculoskeletal: No Pertinent History Male Surgical History: No Pertinent History Other Surgical History: spinal fusion - Social History Smoking Status: Never smoker Exposure to second hand smoke: No Alcohol Use: None Drug Use: none Patient Lives Alone: No Significant Family History: no pertinent family hx - Review of Systems Constitutional: No Fever, No Chills Eyes: No Symptoms Ears, Nose, & Throat: No Symptoms Respiratory: No Cough, No Dyspnea Cardiac: No Chest Pain, No Edema, No Syncope Abdominal/Gastrointestinal: No Abdominal Pain, No Nausea, No Vomiting, No Diarrhea Genitourinary Symptoms: No Dysuria Musculoskeletal: No Back Pain, No Neck Pain Skin: No Rash Neurological: Seizure Psychological: No Symptoms Endocrine: No Symptoms Hematologic/Lymphatic: No Symptoms Immunological/Allergic: No Symptoms All Other Systems: Reviewed and Negative Physical Exam - Nursing Vital Signs Nursing Vital Signs: Initial Vital Signs Temperature 99 F 04/23/18 19:48 Pulse Rate 77 04/23/18 19:48 Respiratory Rate 16 04/23/18 19:48 Blood Pressure 131/89 04/23/18 19:48 O2 Sat by Pulse Oximetry 97 04/23/18 19:48 Pain Scale Pain Intensity 0 - [place] Coma Scale Best Eye Response ([place]): (4) open spontaneously Best Verbal Response ([place]): (5) oriented Best Motor Response ([place]): (6) obeys commands [place] Total: 15 - Physical Exam General Appearance: no apparent distress, alert Eye Exam: bilateral eye: normal inspection, PERRL Ears, Nose, Throat Exam: normal ENT inspection, pharynx normal, moist mucous membranes Neck Exam: normal inspection, non-tender, supple, full range of motion Respiratory: normal breath sounds, lungs clear, No chest tenderness, No respiratory distress Cardiovascular: regular rate/rhythm, capillary refill <2 sec, No murmur, No pulse deficit Gastrointestinal: soft, No tenderness, No distention, No mass Rectal Exam: not done Back Exam: normal inspection, normal range of motion, No CVA tenderness, No vertebral tenderness Extremity Exam: normal inspection, normal range of motion, pelvis stable, limited range of motion (lower extremity), No tenderness Mental Status: alert, 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, 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 However, I watched his facial expression as I hid my hands and pulled his leg hairs. When I pulled hairs, his eyes briefly get quite large. When I asked if he could feel anything he said no. I suspect otherwise.), weak motor strength RLE, weak motor strength LLE Skin Exam: normal color, warm, dry, No rash SpO2 Interpretation: normal SpO2: 97 Oxygen Delivery: Room Air - Course EKG Interpreted by Me: RATE, Sinus Rhythm, NORMAL AXIS, NORMAL INTERVALS, NORMAL QRS, NORMAL ST-T - Radiology Exams Chest X-ray Interpretation: Interpreted by me, Negative Ordered Tests: Active Orders 24 hr Category Date Time Status EKG-ER Only STAT Care 04/23/18 20:21 Active IV Insertion STAT Care 04/23/18 20:20 Active Orthostatic Vital Signs STAT Care 04/23/18 20:20 Active CHEST 2 VIEWS (PA AND LAT) Stat Exams 04/23/18 20:21 Taken BMP Stat Lab 04/23/18 20:20 Completed CBC W DIFF Stat Lab 04/23/18 20:20 Completed Lactic Acid Stat Lab 04/23/18 20:20 Completed Medication Summary Discontinued Medications Generic Name Dose Route Start Last Admin Trade Name Freq PRN Reason Stop Dose Admin Sodium Chloride 1,000 mls @ 999 mls/hr 04/23/18 20:20 04/23/18 21:25 Sodium Chloride 0.9% 1000 Ml IV 04/23/18 21:20 Infused .Q1H1M STA Infusion Sodium Chloride Confirm 04/23/18 20:28 Sodium Chloride 0.9% 1000 Ml Administered 04/23/18 20:29 Dose 1,000 mls @ ud .ROUTE .STK-MED ONE Potassium Chloride 30 meq 04/23/18 21:42 04/23/18 22:04 Klor Con 10 Meq PO 04/23/18 21:43 30 meq STAT ONE Administration Potassium Chloride Confirm 04/23/18 22:02 Klor Con 10 Meq Administered 04/23/18 22:03 Dose 30 meq PO .STK-MED ONE Lab/Rad Data: Laboratory Result Diagrams 04/23/18 20:20 04/23/18 20:20 Laboratory Results 04/23/18 04/23/18 04/23/18 Range/Units 20:20 20:20 20:20 WBC 7.4 (4.0-10.5) K/mm3 RBC 3.84 L (4.1-5.6) M/mm3 Hgb 12.5 (12.5-18.0) gm/dl Hct 35.6 L (42-50) % MCV 92.7 (78-100) fl MCH 32.5 H (26-32) pg MCHC 35.1 (32-36) g/dl RDW 11.7 (11.5-14.0) % Plt Count 178 (150-450) K/mm3 MPV 10.2 H (6-9.5) fl Gran % 67.3 H (36.0-66.0) % Eos # (Auto) 0.11 (0-0.5) Absolute Lymphs (auto) 1.75 (1.0-4.6) Absolute Monos (auto) 0.56 (0.0-1.3) Lymphocytes % 23.6 L (24.0-44.0) % Monocytes % 7.5 (0.0-12.0) % Eosinophils % 1.5 (0.00-5.0) % Basophils % 0.1 (0.0-0.4) % Absolute Granulocytes 5.00 (1.4-6.9) Basophils # 0.01 (0-0.4) Sodium 142 (137-145) mmol/L Potassium 3.1 L (3.5-5.1) mmol/L Chloride 110 H (98-107) mmol/L Carbon Dioxide 24 (22-30) mmol/L Anion Gap 10.3 (5-15) MEQ/L BUN 18 (9-20) mg/dL Creatinine 1.07 (0.66-1.25) mg/dL Estimated GFR > 60.0 ML/MIN Glucose 96 (74-106) mg/dL Lactic Acid 0.6 (0.4-2.0) Calcium 7.8 L (8.4-10.2) mg/dL - Progress Progress: improved Counseled pt/family regarding: lab results, diagnosis - Departure Time of Disposition: 22:21 Departure Disposition: Home Clinical Impression: Syncope and collapse, Hypokalemia Condition: Stable Critical Care Time: No Referrals: ARCHIE [facility] [Primary Care Provider] - Additional Instructions: You had a fainting episode after mowing the yard today. You may have been dehydrated or had a brief seizure due to year history of epilepsy. You were given fluids in the ER. You also have low serum potassium and were giving potassium 30 mEq orally in the ER. Please follow-up tomorrow with her primary medical doctor.
[2018-04-23] MEDS ORDERED: Sodium Chloride 0.9% 1000 ML 1,000 ML IV STA (20:20)
[2018-04-23] MEDS ORDERED: Sodium Chloride 0.9% 1000 ML 1,000 ML ONE (20:28)
[2018-04-23 21:16] LABS: BASOPHIL % 0.1 % (0.0-0.4); Basophil (Absolute #) 0.01 (0-0.4); Eosinophil % 1.5 % (0.00-5.0); Eosinophil (Absolute #) 0.11 (0-0.5); Granulocytes % 67.3 % (36.0-66.0); Hematocrit 35.6 % (42-50); Hemoglobin 12.5 gm/dl (12.5-18.0); Lymphocyte (Absolute #) 1.75 (1.0-4.6); Lymphocytes % 23.6 % (24.0-44.0); Mean Cell Volume 92.7 fl (78-100); Mean Corpuscular Hgb Concent. 35.1 g/dl (32-36); Mean Platelet Volume 10.2 fl (6-9.5); Monocyte (Absolute #) 0.56 (0.0-1.3); Monocytes % 7.5 % (0.0-12.0); Platelet Count 178 K/mm3 (150-450); Red Blood Count 3.84 M/mm3 (4.1-5.6); Red Cell Distribution Width 11.7 % (11.5-14.0); White Blood Count 7.4 K/mm3 (4.0-10.5)
[2018-04-23 21:17] LABS: Mean Corpuscular Hemoglobin 32.5 pg (26-32)
[2018-04-23 21:28] LABS: ANION GAP 10.3 MEQ/L (5-15); BLOOD UREA NITROGEN 18 mg/dL (9-20); CHLORIDE 110 mmol/L (98-107); Calcium 7.8 mg/dL (8.4-10.2); Carbon Dioxide 24 mmol/L (22-30); Creatinine 1 1.07 mg/dL (0.66-1.25); Glucose 96 mg/dL (74-106); Potassium 3.1 mmol/L (3.5-5.1); SODIUM 142 mmol/L (137-145)
[2018-04-23] MEDS ORDERED: Klor Con 10 MEQ PO ONE ×2 (21:42→22:02)
[2018-04-23 22:09] VITALS: BP 145/86; PULSE 63
[2018-04-23 22:23] VITALS: O2SAT 97
--- NOTE | 2018-04-24 08:42 | XRAY ---
Indication: Syncope. Comparison: October 27, 2017. AP/lateral chest again demonstrates normal heart and lungs with incidental calcified granulomas. Bony thorax intact. No new/acute findings.
== END 2018-04-23 22:39 | disposition home or self-care (01) ==
LOC: ED 19:45
DX: R55 Syncope and collapse (principal); E87.6 Hypokalemia; Z79.899 Other long term (current) drug therapy
CPT/HCPCS: 36000; 36415; 71046; 80048; 83605; 85025; 93005; 99284; A9270-GY

== ENCOUNTER 2018-07-16 18:03 | Emergency (ER) | payer MEDICARE ==
--- NOTE | 2018-07-16 18:20 | ERPHSYRPT ---
- History of Present Illness Time Seen by Provider: 07/16/18 18:15 Source: patient, family Exam Limitations: no limitations Physician History: The patient is a 48-year-old male his complaining of a sudden onset of a typical migraine headache for him. They were at a friend's house. He has medicines at home for his headache. He did not want to go home and get his medicines. He wanted to come to the ER. He denies numbness or tingling. He denies any aura prior to the headache. His head hurts in the front and goes around the over the top of his head. His past medical history is significant for migraine headaches, hypertension, COPD, and seizures. Timing/Duration: today, hour(s) (1/2), gradual onset Quality: aching, throbbing Head Pain Location: frontal, parietal Severity of Pain-Current: moderate Recent Head Trauma: frequent headaches Associated Symptoms: nausea/vomiting, sensitive to light Previous symptoms: same symptoms as today Allergies/Adverse Reactions: No Known Drug Allergies Allergy (Verified 07/16/18 18:09) Home Medications: Levetiracetam [Keppra 500 mg ] 750 mg PO BID 03/03/17 [History] Lacosamide [Vimpat] 150 mg PO BID 03/13/17 [History] Losartan Potassium 50 mg [Cozaar 50 MG] 50 mg PO DAILY 03/13/17 [History] Fluoxetine HCl 40 mg PO DAILY 07/04/17 [History] Hydrochlorothiazide 25 mg [hydroDIURIL 25 MG] 25 mg PO DAILY 07/04/17 [ History] Ropinirole HCl 1 mg PO HS 07/04/17 [History] Propranolol HCl [Propranolol HCl ER] 120 mg PO HS 08/17/17 [History] Sumatriptan Succinate [Zembrace Symtouch] 3 mg SQ UD 07/16/18 [History] Hx Tetanus, Diphtheria Vaccination/Date Given: Yes Hx Influenza Vaccination/Date Given: Yes Hx Pneumococcal Vaccination/Date Given: No - Review of Systems Constitutional: No Fever, No Chills Eyes: Photophobia Ears, Nose, & Throat: No Symptoms Respiratory: No Cough, No Dyspnea Cardiac: No Chest Pain, No Edema, No Syncope Abdominal/Gastrointestinal: No Abdominal Pain, No Nausea, No Vomiting, No Diarrhea Genitourinary Symptoms: No Dysuria Musculoskeletal: No Back Pain, No Neck Pain Skin: No Rash Neurological: Headache Psychological: No Symptoms Endocrine: No Symptoms Hematologic/Lymphatic: No Symptoms Immunological/Allergic: No Symptoms All Other Systems: Reviewed and Negative - Past Medical History Pertinent Past Medical History: Yes Neurological History: Migraines, Seizures ENT History: No Pertinent History Cardiac History: No Pertinent History Respiratory History: No Pertinent History Endocrine Medical History: No Pertinent History Musculoskeletal History: No Pertinent History GI Medical History: No Pertinent History History: No Pertinent History Psycho-Social History: No Pertinent History Male Reproductive Disorders: No Pertinent History, Scrotal Mass Other Medical History: cp from . - Past Surgical History Past Surgical History: Yes Neuro Surgical History: No Pertinent History Cardiac: No Pertinent History Respiratory: No Pertinent History Gastrointestinal: No Pertinent History Genitourinary: No Pertinent History Musculoskeletal: No Pertinent History Male Surgical History: No Pertinent History Other Surgical History: spinal fusion - Social History Smoking Status: Never smoker Exposure to second hand smoke: No Alcohol Use: None Drug Use: none Patient Lives Alone: No Significant Family History: no pertinent family hx - Nursing Vital Signs Nursing Vital Signs: Initial Vital Signs Temperature 99 F 07/16/18 18:05 Pulse Rate 66 07/16/18 18:05 Respiratory Rate 16 07/16/18 18:05 Blood Pressure 142/91 07/16/18 18:05 O2 Sat by Pulse Oximetry 96 07/16/18 18:05 Pain Scale Pain Intensity 10 - Physical Exam General Appearance: moderate distress Eye Exam: PERRL/EOMI Ears, Nose, Throat Exam: normal ENT inspection, moist mucous membranes Neck Exam: normal inspection, supple, full range of motion, No meningismus Respiratory Exam: normal breath sounds, lungs clear Cardiovascular Exam: regular rate/rhythm, normal heart sounds Gastrointestinal/Abdominal Exam: soft, No tenderness, No distention Back Exam: normal inspection, normal range of motion Extremity Exam: normal inspection Mental Status Exam: alert, 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, 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 Exam: normal hearing, normal speech, PERRL, tongue midline, No facial asymmetry, No facial droop, No facial paresthesias Coordination/Gait Exam: normal cerebellar function Motor/Sensory Exam: no motor deficit, no sensory deficit Skin Exam: normal color, warm, dry, No rash SpO2 Interpretation: normal Oxygen Delivery: Room Air - Progress Progress: improved Counseled pt/family regarding: diagnosis - Departure Time of Disposition: 18:23 Departure Disposition: Home Clinical Impression: Migraine Condition: Stable Critical Care Time: No Referrals: ARCHIE SIDHU [Primary Care Provider] - Additional Instructions: You have a migraine headache. You were given Toradol 60 mg and Phenergan 50 mg by IM in the ER. Follow-up with your primary medical doctor as needed.
[2018-07-16] MEDS ORDERED: Phenergan 25 MG INJ IM ONE (18:22)
[2018-07-16] MEDS ORDERED: TORAdol 30 mg Injection IM ONE (18:22)
[2018-07-16] MEDS ORDERED: TORAdol 30 mg Injection ONE (18:26)
[2018-07-16] MEDS ORDERED: Phenergan 25 MG INJ ONE (18:26)
[2018-07-16 19:04] VITALS: BP 149/96; PULSE 78; O2SAT 98
== END 2018-07-16 19:04 | disposition home or self-care (01) ==
LOC: ED 18:03
DX: G43.909 Migraine, unspecified, not intractable, without status migrainosus (principal); Z79.899 Other long term (current) drug therapy
CPT/HCPCS: 96372; 99284; J1885; J2550

== ENCOUNTER 2018-08-07 13:55 | Emergency (ER) | payer MEDICARE ==
--- NOTE | 2018-08-07 14:20 | ERPHSYRPT ---
- History of Present Illness Time Seen by Provider: 08/07/18 14:05 Source: patient, family Exam Limitations: no limitations Patient Subjective Stated Complaint: high blood pressure Triage Nursing Assessment: Pt c/o of blood pressure running high since this morning, takes blood pressure of an evening, BP 172/106, P 49, dizziness, denies any pain, pulses normal, normal heart sounds, afebrile, denies any other illness Physician History: 48 y/o white male presents with dizziness, weakness and high bp. pt has a h/o htn on one medication for htn he takes at night. pt recently had medication for bp changed. pt denies cp, denies soa and denies abd pain. denies visual changes. Timing/Duration: today Severity: mild Modifying Factors: Improves With: nothing Associated Symptoms: weakness, No nausea, No vomiting, No abdominal pain, No shortness of breath, No chest pain, No headaches, No loss of appetite, No syncope Allergies/Adverse Reactions: No Known Drug Allergies Allergy (Verified 08/07/18 14:06) Home Medications: Levetiracetam [Keppra 500 mg ] 750 mg PO BID 03/03/17 [History] Lacosamide [Vimpat] 150 mg PO BID 03/13/17 [History] Losartan Potassium 50 mg [Cozaar 50 MG] 50 mg PO DAILY 03/13/17 [History] Fluoxetine HCl 40 mg PO DAILY 07/04/17 [History] Hydrochlorothiazide 25 mg [hydroDIURIL 25 MG] 25 mg PO DAILY 07/04/17 [ History] Ropinirole HCl 1 mg PO HS 07/04/17 [History] Propranolol HCl [Propranolol HCl ER] 120 mg PO HS 08/17/17 [History] Sumatriptan Succinate [Zembrace Symtouch] 3 mg SQ UD 07/16/18 [History] Hx Tetanus, Diphtheria Vaccination/Date Given: Yes Hx Influenza Vaccination/Date Given: Yes Hx Pneumococcal Vaccination/Date Given: No - Review of Systems Constitutional: Weakness Eyes: No Symptoms Ears, Nose, & Throat: No Symptoms Respiratory: No Symptoms Cardiac: No Symptoms Abdominal/Gastrointestinal: No Symptoms, No Nausea, No Vomiting, No Diarrhea Genitourinary Symptoms: No Symptoms, No Dysuria, No Frequency, No Hematuria Musculoskeletal: No Symptoms Skin: No Symptoms Neurological: No Symptoms, No Headache Psychological: No Symptoms, No Anxiety Endocrine: No Symptoms Hematologic/Lymphatic: No Symptoms Immunological/Allergic: No Symptoms All Other Systems: Reviewed and Negative - Past Medical History Pertinent Past Medical History: Yes Neurological History: Migraines, Seizures ENT History: No Pertinent History Cardiac History: No Pertinent History, Hypertension Respiratory History: No Pertinent History Endocrine Medical History: No Pertinent History Musculoskeletal History: No Pertinent History GI Medical History: No Pertinent History History: No Pertinent History Psycho-Social History: No Pertinent History Male Reproductive Disorders: No Pertinent History, Scrotal Mass Other Medical History: cp from . - Past Surgical History Past Surgical History: Yes Neuro Surgical History: No Pertinent History Cardiac: No Pertinent History Respiratory: No Pertinent History Gastrointestinal: No Pertinent History Genitourinary: No Pertinent History Musculoskeletal: No Pertinent History Male Surgical History: No Pertinent History Other Surgical History: spinal fusion - Social History Smoking Status: Never smoker Exposure to second hand smoke: No Alcohol Use: None Drug Use: none Patient Lives Alone: No Significant Family History: no pertinent family hx - Nursing Vital Signs Nursing Vital Signs: Initial Vital Signs Temperature 97.4 F 08/07/18 13:58 Pulse Rate 49 L 08/07/18 13:58 Blood Pressure 172/106 08/07/18 13:58 O2 Sat by Pulse Oximetry 98 08/07/18 13:58 Pain Scale Pain Intensity 0 - Physical Exam General Appearance: no apparent distress, alert, anxiety Eye Exam: PERRL/EOMI, eyes nml inspection Ears, Nose, Throat Exam: normal ENT inspection, TMs normal, moist mucous membranes Neck Exam: normal inspection, non-tender, supple, full range of motion Respiratory Exam: normal breath sounds, lungs clear, airway intact, No chest tenderness, No respiratory distress, No accessory muscle use, No rhonchi, No wheezing, No stridor Cardiovascular Exam: regular rate/rhythm, normal heart sounds, normal peripheral pulses Gastrointestinal/Abdomen Exam: soft, normal bowel sounds, No tenderness, No guarding, No rebound Rectal Exam: not done Back Exam: normal inspection, normal range of motion, vertebral tenderness, No CVA tenderness Extremity Exam: normal inspection, normal range of motion, pelvis stable Neurologic Exam: alert, 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, cooperative, environmental health safety manager II-XII nml as tested Skin Exam: normal color, warm, dry Lymphatic Exam: No adenopathy SpO2 Interpretation: normal SpO2: 98 Oxygen Delivery: Room Air - Course Nursing assessment & vital signs reviewed: Yes EKG Interpreted by Me: RATE, Sinus Rhythm, Sinus [place], NORMAL AXIS, NORMAL INTERVALS, NORMAL QRS, NORMAL ST-T (comparison 04/23/18. today bradycardia. no other changes. no acute ischemia) Ordered Tests: Active Orders 24 hr Category Date Time Status Jacquard Card Cutter STAT Care 08/07/18 14:22 Active Clean Catch Urine Specimen STAT Care 08/07/18 14:21 Active EKG-ER Only STAT Care 08/07/18 14:21 Active IV Insertion STAT Care 08/07/18 14:21 Active Pulse Oximetry (ED) STAT Care 08/07/18 14:21 Active HEAD WITHOUT CONTRAST [CT] Stat Exams 08/07/18 14:34 Completed CBC W DIFF Stat Lab 08/07/18 14:35 Completed CMP Stat Lab 08/07/18 14:35 Completed CULTURE,URINE Stat Lab 08/07/18 15:00 Received UA W/RFX UR CULTURE Stat Lab 08/07/18 15:00 Completed Medication Summary Discontinued Medications Generic Name Dose Route Start Last Admin Trade Name Freq PRN Reason Stop Dose Admin Enalaprilat 1.25 mg 08/07/18 14:23 08/07/18 14:32 Vasotec I.V. 2.5 Mg IV 08/07/18 14:24 1.25 mg STAT ONE Administration Enalaprilat Confirm 08/07/18 14:27 Vasotec I.V. 2.5 Mg Administered 08/07/18 14:28 Dose 2.5 mg IV .TargAnox-MED ONE Lab/Rad Data: Laboratory Result Diagrams 08/07/18 14:35 08/07/18 14:35 Laboratory Results 08/07/18 08/07/18 08/07/18 Range/Units 15:00 14:35 14:35 WBC 5.6 (4.0-10.5) K/mm3 RBC 4.53 (4.1-5.6) M/mm3 Hgb 14.5 (12.5-18.0) gm/dl Hct 42.2 (42-50) % MCV 93.2 (78-100) fl MCH 32.0 (26-32) pg MCHC 34.4 (32-36) g/dl RDW 12.0 (11.5-14.0) % Plt Count 192 (150-450) K/mm3 MPV 10.3 H (6-9.5) fl Gran % 61.6 (36.0-66.0) % Eos # (Auto) 0.12 (0-0.5) Absolute Lymphs (auto) 1.57 (1.0-4.6) Absolute Monos (auto) 0.46 (0.0-1.3) Lymphocytes % 27.9 (24.0-44.0) % Monocytes % 8.2 (0.0-12.0) % Eosinophils % 2.1 (0.00-5.0) % Basophils % 0.2 (0.0-0.4) % Absolute Granulocytes 3.47 (1.4-6.9) Basophils # 0.01 (0-0.4) Sodium 138 (137-145) mmol/L Potassium 4.2 (3.5-5.1) mmol/L Chloride 103 (98-107) mmol/L Carbon Dioxide 27 (22-30) mmol/L Anion Gap 11.7 (5-15) MEQ/L BUN 13 (9-20) mg/dL Creatinine 1.02 (0.66-1.25) mg/dL Estimated GFR > 60.0 ML/MIN Glucose 94 (74-106) mg/dL Calcium 8.9 (8.4-10.2) mg/dL Total Bilirubin 0.40 (0.2-1.3) mg/dL AST 25 (17-59) U/L ALT 26 (0-50) U/L Alkaline Phosphatase 78 (38-126) U/L Serum Total Protein 7.3 (6.3-8.2) g/dL Albumin 4.1 (3.5-5.0) g/dL Urine Color YELLOW (YELLOW) Urine Appearance CLEAR (CLEAR) Urine pH 7.0 (5-6) Ur Specific [place] 1.016 (1.005-1.025) Urine Protein NEGATIVE (Negative) Urine Ketones NEGATIVE (NEGATIVE) Urine Blood SMALL (0-5) Arnold/ul Urine Nitrite NEGATIVE (NEGATIVE) Urine Bilirubin NEGATIVE (NEGATIVE) Urine Urobilinogen NEGATIVE (0-1) mg/dL Ur Leukocyte Esterase TRACE (NEGATIVE) Urine WBC (Auto) 3-5 (0-5) /HPF Urine RBC (Auto) 0-2 (0-2) /HPF U Hyaline Cast (Auto) 3-5 (0-2) /LPF U Epithel Cells (Auto) NONE SEEN (FEW) /HPF Urine Mucus (Auto) SLIGHT (NEGATIVE) /HPF Urine Culture Reflexed YES (NO) Urine Glucose NEGATIVE (NEGATIVE) mg/dL ct head- no acute process - Progress Progress: improved, re-examined Counseled pt/family regarding: lab results, diagnosis, need for follow-up, rad results - Departure Time of Disposition: 16:13 Departure Disposition: Home Clinical Impression: Hypertension Condition: Stable Critical Care Time: No Referrals: ARCHIE SIDHU [Primary Care Provider] - Additional Instructions: drink plenty of fluids. take your medications as prescribed. follow up with your prescribing physician tomorrow for further management
[2018-08-07] MEDS ORDERED: VASOTEC I.V. 2.5 MG IV ONE ×2 (14:23→14:27)
[2018-08-07 14:38] LABS: BASOPHIL % 0.2 % (0.0-0.4); Basophil (Absolute #) 0.01 (0-0.4); Eosinophil % 2.1 % (0.00-5.0); Eosinophil (Absolute #) 0.12 (0-0.5); Granulocyte Absolute (ANC) 3.47 (1.4-6.9); Granulocytes % 61.6 % (36.0-66.0); Hematocrit 42.2 % (42-50); Hemoglobin 14.5 gm/dl (12.5-18.0); Lymphocyte (Absolute #) 1.57 (1.0-4.6); Lymphocytes % 27.9 % (24.0-44.0); Mean Cell Volume 93.2 fl (78-100); Mean Corpuscular Hgb Concent. 34.4 g/dl (32-36); Mean Platelet Volume 10.3 fl (6-9.5); Monocyte (Absolute #) 0.46 (0.0-1.3); Monocytes % 8.2 % (0.0-12.0); Platelet Count 192 K/mm3 (150-450); Red Blood Count 4.53 M/mm3 (4.1-5.6); White Blood Count 5.6 K/mm3 (4.0-10.5)
[2018-08-07 14:48] LABS: ALBUMIN 4.1 g/dL (3.5-5.0); ALKALINE PHOSPHATASE 78 U/L (38-126); ANION GAP 11.7 MEQ/L (5-15); BLOOD UREA NITROGEN 13 mg/dL (9-20); CHLORIDE 103 mmol/L (98-107); Calcium 8.9 mg/dL (8.4-10.2); Carbon Dioxide 27 mmol/L (22-30); Creatinine 1 1.02 mg/dL (0.66-1.25); Glucose 94 mg/dL (74-106); Potassium 4.2 mmol/L (3.5-5.1); SGOT/AST 25 U/L (17-59); SGPT/ALT 26 U/L (0-50); SODIUM 138 mmol/L (137-145); Total Protein 7.3 g/dL (6.3-8.2)
[2018-08-07 15:26] LABS: Appearance CLEAR (CLEAR); Bilirubin NEGATIVE (NEGATIVE); Blood SMALL Ery/ul (0-5); Glucose NEGATIVE (NEGATIVE); Ketones NEGATIVE (NEGATIVE); Leukocyte Esterase TRACE (NEGATIVE); Nitrite NEGATIVE (NEGATIVE); Protein,Urine Dip NEGATIVE (Negative); Specific Gravity 1.016 (1.005-1.025); Urobilinogen NEGATIVE mg/dL (0-1)
--- NOTE | 2018-08-07 15:27 | XRAY ---
Exam: CT of the head without IV contrast from 08/07/2018. CTDI: 67.41 Comparison: CT of the head without IV contrast from 11/30/2017. Indication: 48-year-old male with dizziness, elevated blood pressure, history of cerebral palsy affecting right side. Technique: Non-IV contrast axial images were obtained through the brain. Reconstructed coronal and sagittal images were created and reviewed. Findings: There is asymmetry of the appearance of the cerebral hemispheres. The left side of the cerebrum appears somewhat smaller than the right side. 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 This is stable. I also note stable prominence of the CSF space anteriorly within the left frontal-anterior parietal region as well as the anterior medial aspect of the right frontal lobe. The ventricles appear unchanged with the occipital horn on the right appearing larger than that seen on the left. The fourth ventricle is of normal size and is midline. Structures of the posterior fossa reveal no significant abnormality. There is some borderline cerebellar tonsillar ectopia representing no change. Impression: 1. Stable congenital brain malformation, as detailed above, representing no change. 2. No acute intracranial bleed, new territorial infarct, or other acute intracranial abnormality is seen. There is no acute intracranial bleed or abnormal extra-axial fluid collection. The remainder of the cortical sulci and basilar cisterns appear unremarkable. No low attenuation infarction is seen. The calvarium of the skull reveals no fracture or other significant focal bone lesion. The mastoid air cells appear clear. There is some mild mucosal thickening at the anterior medial aspect of each maxillary sinus, but greater on the left than right. I don't believe this is unchanged.
[2018-08-07 16:39] VITALS: BP 133/85; PULSE 64; O2SAT 99
== END 2018-08-07 16:40 | disposition home or self-care (01) ==
LOC: ED 13:55
DX: I10 Essential (primary) hypertension (principal); R42 Dizziness and giddiness; R53.1 Weakness; Z79.899 Other long term (current) drug therapy
CPT/HCPCS: 36000; 36415; 70450; 80053; 81001; 85025; 87086; 93005; 93041; 96374; 99284

== ENCOUNTER 2018-10-09 12:53 | Emergency (ER) | payer MEDICARE ==
[2018-10-09 14:42] VITALS: O2SAT 98
[2018-10-09 16:29] LABS: BASOPHIL % 0.2 % (0.0-0.4); Basophil (Absolute #) 0.01 (0-0.4); Eosinophil % 3.1 % (0.00-5.0); Granulocyte Absolute (ANC) 3.31 (1.4-6.9); Granulocytes % 50.5 % (36.0-66.0); Hematocrit 40.6 % (42-50); Hemoglobin 14.1 gm/dl (12.5-18.0); Lymphocyte (Absolute #) 2.47 (1.0-4.6); Lymphocytes % 37.7 % (24.0-44.0); Mean Cell Volume 92.9 fl (78-100); Mean Corpuscular Hemoglobin 32.3 pg (26-32); Mean Corpuscular Hgb Concent. 34.7 g/dl (32-36); Mean Platelet Volume 9.7 fl (6-9.5); Monocyte (Absolute #) 0.56 (0.0-1.3); Monocytes % 8.5 % (0.0-12.0); Platelet Count 180 K/mm3 (150-450); Red Blood Count 4.37 M/mm3 (4.1-5.6); Red Cell Distribution Width 12.3 % (11.5-14.0); White Blood Count 6.6 K/mm3 (4.0-10.5)
[2018-10-09 16:39] LABS: ALBUMIN 4.3 g/dL (3.5-5.0); ALKALINE PHOSPHATASE 75 U/L (38-126); ANION GAP 11.7 MEQ/L (5-15); BLOOD UREA NITROGEN 23 mg/dL (9-20); CHLORIDE 101 mmol/L (98-107); Calcium 9.1 mg/dL (8.4-10.2); Carbon Dioxide 30 mmol/L (22-30); Creatinine 1 1.09 mg/dL (0.66-1.25); Glucose 106 mg/dL (74-106); Potassium 3.3 mmol/L (3.5-5.1); SGOT/AST 20 U/L (17-59); SGPT/ALT 27 U/L (0-50); SODIUM 140 mmol/L (137-145); Total Protein 7.5 g/dL (6.3-8.2)
--- NOTE | 2018-10-09 16:43 | ERPHSYRPT ---
- History of Present Illness Time Seen by Provider: 10/09/18 16:35 Source: patient Exam Limitations: no limitations Patient Subjective Stated Complaint: pt reports that he noticed bright red blood in his stool last night, states that he also has pressure to the scrotum. Triage Nursing Assessment: pt is aox3, pupils perrl, resps easy and non labored , afebrile, radial pulses strong and equal, abd is soft non tender with palpation, bowel sounds are present and nomoactivex4, skin is pink warm dry. Physician History: [age]-year-old white male with history of migraines, seizures, high blood pressure, scrotal mass, cerebral palsy, spinal fusion. Patient arrives with complaint of pain in his scrotum he states he is bleeding from his scrotum to the perineal area symptoms since yesterday denies any injury. Past medical history includes migraines, seizure, high blood pressure, scrotal mass, cerebral palsy Past surgical history includes spinal fusion Timing/Duration: yesterday Severity: moderate Modifying Factors: Improves With: nothing Associated Symptoms: other (scrotal pain), No nausea, No vomiting, No abdominal pain, No shortness of breath, No heartburn, No diaphoresis, No cough, No chills , No chest pain, No fever, No loss of appetite, No malaise, No rash, No seizure , No weakness Allergies/Adverse Reactions: No Known Drug Allergies Allergy (Verified 08/07/18 14:06) Home Medications: Levetiracetam [Keppra 500 mg ] 750 mg PO BID 03/03/17 [History] Lacosamide [Vimpat] 150 mg PO BID 03/13/17 [History] Losartan Potassium 50 mg [Cozaar 50 MG] 50 mg PO DAILY 03/13/17 [History] Fluoxetine HCl 40 mg PO DAILY 07/04/17 [History] Hydrochlorothiazide 25 mg [hydroDIURIL 25 MG] 25 mg PO DAILY 07/04/17 [ History] Ropinirole HCl 1 mg PO HS 07/04/17 [History] Propranolol HCl [Propranolol HCl ER] 120 mg PO HS 08/17/17 [History] Sumatriptan Succinate [Zembrace Symtouch] 3 mg SQ UD 07/16/18 [History] Hx Tetanus, Diphtheria Vaccination/Date Given: Yes Hx Influenza Vaccination/Date Given: Yes Hx Pneumococcal Vaccination/Date Given: Yes Immunizations Up to Date: Yes - Review of Systems Constitutional: No Fever, No Chills Eyes: No Symptoms Ears, Nose, & Throat: No Symptoms Respiratory: No Cough, No Dyspnea Cardiac: No Chest Pain, No Edema, No Syncope Abdominal/Gastrointestinal: No Abdominal Pain, No Nausea, No Vomiting, No Diarrhea Genitourinary Symptoms: Other (scrotal pain bleeding from scrotum) Musculoskeletal: No Back Pain, No Neck Pain Skin: No Rash Neurological: No Dizziness, No Focal Weakness, No Sensory Changes Psychological: No Symptoms Endocrine: No Symptoms (Cold) All Other Systems: Reviewed and Negative - Past Medical History Pertinent Past Medical History: Yes Neurological History: Migraines, Seizures ENT History: No Pertinent History Cardiac History: No Pertinent History, Hypertension Respiratory History: No Pertinent History Endocrine Medical History: No Pertinent History Musculoskeletal History: No Pertinent History GI Medical History: No Pertinent History History: No Pertinent History Psycho-Social History: No Pertinent History Male Reproductive Disorders: No Pertinent History, Scrotal Mass Other Medical History: cp from . - Past Surgical History Past Surgical History: Yes Neuro Surgical History: No Pertinent History Cardiac: No Pertinent History Respiratory: No Pertinent History Gastrointestinal: No Pertinent History Genitourinary: No Pertinent History Musculoskeletal: No Pertinent History Male Surgical History: No Pertinent History Other Surgical History: spinal fusion - Social History Smoking Status: Never smoker Exposure to second hand smoke: No Alcohol Use: None Drug Use: none Patient Lives Alone: No Significant Family History: no pertinent family hx - Nursing Vital Signs Nursing Vital Signs: Initial Vital Signs Temperature 98.5 F 10/09/18 14:30 Pulse Rate 68 10/09/18 14:30 Respiratory Rate 18 10/09/18 14:30 Blood Pressure 121/87 10/09/18 14:30 O2 Sat by Pulse Oximetry 98 10/09/18 14:30 Pain Scale Pain Intensity 6 - Physical Exam General Appearance: no apparent distress, alert Eye Exam: PERRL/EOMI, eyes nml inspection Ears, Nose, Throat Exam: normal ENT inspection, TMs normal, pharynx normal, moist mucous membranes Neck Exam: normal inspection, non-tender, supple, full range of motion Respiratory Exam: normal breath sounds, lungs clear, No respiratory distress Cardiovascular Exam: regular rate/rhythm, normal heart sounds, normal peripheral pulses Gastrointestinal/Abdomen Exam: soft, normal bowel sounds, No tenderness, No mass Male Genitalia Exam: other (scrotal pain patient states blood in perineal area) Rectal Exam: normal exam, normal rectal tone, No mass, No black stool, No blood , No tenderness Back Exam: normal inspection, normal range of motion, No CVA tenderness, No vertebral tenderness Extremity Exam: normal inspection, normal range of motion, pelvis stable Neurologic Exam: alert (Family), 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, cooperative, sales recruiting coordinator II-XII nml as tested, normal mood/affect, nml cerebellar function, nml station & gait, sensation nml, No motor deficits Skin Exam: normal color, warm, dry, No rash SpO2 Interpretation: normal (active U1 offered and or98%), borderline oxygenation (ers) SpO2: 98 Oxygen Delivery: Room Air - Course Nursing assessment & vital signs reviewed: Yes - Radiology Ultrasound Exam Scrotal Ultrasound: Other (Discussed with cytogenetic technologist: Left varicocele, small amount of fluid on the right) Ordered Tests: Active Orders 24 hr Category Date Time Status IV Insertion STAT Care 10/09/18 16:05 Active TESTICLE [US] Stat Exams 10/09/18 17:03 Completed CBC W DIFF Stat Lab 10/09/18 16:15 Completed CMP Stat Lab 10/09/18 16:15 Completed Occult Blood,Stool Other Stat Lab 10/09/18 16:45 Uncollected UA W/RFX UR CULTURE Stat Lab 10/09/18 16:44 Completed Urine Triage Profile Stat Lab 10/09/18 16:44 Completed Lab/Rad Data: Laboratory Result Diagrams 10/09/18 16:15 10/09/18 16:15 Laboratory Results 10/09/18 10/09/18 10/09/18 Range/Units 16:44 16:44 16:15 WBC (4.0-10.5) K/mm3 RBC (4.1-5.6) M/mm3 Hgb (12.5-18.0) gm/dl Hct (42-50) % MCV (78-100) fl MCH (26-32) pg MCHC (32-36) g/dl RDW (11.5-14.0) % Plt Count (150-450) K/mm3 MPV (6-9.5) fl Gran % (36.0-66.0) % Eos # (Auto) (0-0.5) Absolute Lymphs (auto) (1.0-4.6) Absolute Monos (auto) (0.0-1.3) Lymphocytes % (24.0-44.0) % Monocytes % (0.0-12.0) % Eosinophils % (0.00-5.0) % Basophils % (0.0-0.4) % Absolute Granulocytes (1.4-6.9) Basophils # (0-0.4) Sodium 140 (137-145) mmol/L Potassium 3.3 L (3.5-5.1) mmol/L Chloride 101 (98-107) mmol/L Carbon Dioxide 30 (22-30) mmol/L Anion Gap 11.7 (5-15) MEQ/L BUN 23 H (9-20) mg/dL Creatinine 1.09 (0.66-1.25) mg/dL Estimated GFR > 60.0 ML/MIN Glucose 106 (74-106) mg/dL Calcium 9.1 (8.4-10.2) mg/dL Total Bilirubin 0.50 (0.2-1.3) mg/dL AST 20 (17-59) U/L ALT 27 (0-50) U/L Alkaline Phosphatase 75 (38-126) U/L Serum Total Protein 7.5 (6.3-8.2) g/dL Albumin 4.3 (3.5-5.0) g/dL Urine Color YELLOW (YELLOW) Urine Appearance SLIGHTLY CLOUDY (CLEAR) Urine pH 5.0 (5-6) Ur Specific [place] 1.016 (1.005-1.025) Urine Protein NEGATIVE (Negative) Urine Ketones NEGATIVE (NEGATIVE) Urine Blood SMALL (0-5) Arnold/ul Urine Nitrite NEGATIVE (NEGATIVE) Urine Bilirubin NEGATIVE (NEGATIVE) Urine Urobilinogen NEGATIVE (0-1) mg/dL Ur Leukocyte Esterase NEGATIVE (NEGATIVE) Urine WBC (Auto) NONE (0-5) /HPF Urine RBC (Auto) NONE (0-2) /HPF U Epithel Cells (Auto) NONE (FEW) /HPF Urine Bacteria (Auto) NONE SEEN (NEGATIVE) /HPF Urine Mucus (Auto) SLIGHT (NEGATIVE) /HPF Urine Culture Reflexed NO (NO) Urine Glucose NEGATIVE (NEGATIVE) mg/dL Urine Opiates Level NEGATIVE (NEGATIVE) Ur Methadone NEGATIVE (NEGATIVE) Urine Barbiturates NEGATIVE (NEGATIVE) Ur Phencyclidine (PCP) NEGATIVE (NEGATIVE) Urine Amphetamine NEGATIVE (NEGATIVE) U Benzodiazepine Level NEGATIVE (NEGATIVE) Urine Cocaine NEGATIVE (NEGATIVE) Urine Marijuana (THC) NEGATIVE (NEGATIVE) 10/09/18 Range/Units 16:15 WBC 6.6 (4.0-10.5) K/mm3 RBC 4.37 (4.1-5.6) M/mm3 Hgb 14.1 (12.5-18.0) gm/dl Hct 40.6 L (42-50) % MCV 92.9 (78-100) fl MCH 32.3 H (26-32) pg MCHC 34.7 (32-36) g/dl RDW 12.3 (11.5-14.0) % Plt Count 180 (150-450) K/mm3 MPV 9.7 H (6-9.5) fl Gran % 50.5 (36.0-66.0) % Eos # (Auto) 0.20 (0-0.5) Absolute Lymphs (auto) 2.47 (1.0-4.6) Absolute Monos (auto) 0.56 (0.0-1.3) Lymphocytes % 37.7 (24.0-44.0) % Monocytes % 8.5 (0.0-12.0) % Eosinophils % 3.1 (0.00-5.0) % Basophils % 0.2 (0.0-0.4) % Absolute Granulocytes 3.31 (1.4-6.9) Basophils # 0.01 (0-0.4) Sodium (137-145) mmol/L Potassium (3.5-5.1) mmol/L Chloride (98-107) mmol/L Carbon Dioxide (22-30) mmol/L Anion Gap (5-15) MEQ/L BUN (9-20) mg/dL Creatinine (0.66-1.25) mg/dL Estimated GFR ML/MIN Glucose (74-106) mg/dL Calcium (8.4-10.2) mg/dL Total Bilirubin (0.2-1.3) mg/dL AST (17-59) U/L ALT (0-50) U/L Alkaline Phosphatase (38-126) U/L Serum Total Protein (6.3-8.2) g/dL Albumin (3.5-5.0) g/dL Urine Color (YELLOW) Urine Appearance (CLEAR) Urine pH (5-6) Ur Specific [place] (1.005-1.025) Urine Protein (Negative) Urine Ketones (NEGATIVE) Urine Blood (0-5) Arnold/ul Urine Nitrite (NEGATIVE) Urine Bilirubin (NEGATIVE) Urine Urobilinogen (0-1) mg/dL Ur Leukocyte Esterase (NEGATIVE) Urine WBC (Auto) (0-5) /HPF Urine RBC (Auto) (0-2) /HPF U Epithel Cells (Auto) (FEW) /HPF Urine Bacteria (Auto) (NEGATIVE) /HPF Urine Mucus (Auto) (NEGATIVE) /HPF Urine Culture Reflexed (NO) Urine Glucose (NEGATIVE) mg/dL Urine Opiates Level (NEGATIVE) Ur Methadone (NEGATIVE) Urine Barbiturates (NEGATIVE) Ur Phencyclidine (PCP) (NEGATIVE) Urine Amphetamine (NEGATIVE) U Benzodiazepine Level (NEGATIVE) Urine Cocaine (NEGATIVE) Urine Marijuana (THC) (NEGATIVE) - Progress Progress: improved Progress Note: 10/09/18 18:14 48-year-old white male arrives with complaint of pain in his scrotum he states he saw some blood near his scrotum as well and in the perineal area. On physical examination patient does not appear to be in acute distress. Patient's CBC CMP and urinalysis all within normal limits. Rectal examination is performed no gross blood is seen. Ultrasound of the patient's scrotum was obtained patient has a left varicocele and a small amount of fluid around the right testicle otherwise negative. Will go ahead and discharge patient. - Departure Time of Disposition: 18:53 Departure Disposition: Home Clinical Impression: Scrotal pain, bleeding perineal area Condition: Fair Critical Care Time: No Referrals: ARCHIE SIDHU [Primary Care Provider] - Additional Instructions: Return home. Plenty of fluids. Tylenol every 4 hours as needed for pain. Follow-up with your family doctor. Return for acute distress or for severe symptoms.
[2018-10-09 17:03] LABS: Appearance SLIGHTLY CLOUDY (CLEAR); Bilirubin NEGATIVE (NEGATIVE); Blood SMALL Ery/ul (0-5); Glucose NEGATIVE (NEGATIVE); Ketones NEGATIVE (NEGATIVE); Leukocyte Esterase NEGATIVE (NEGATIVE); Nitrite NEGATIVE (NEGATIVE); Protein,Urine Dip NEGATIVE (Negative); Specific Gravity 1.016 (1.005-1.025); Urobilinogen NEGATIVE mg/dL (0-1)
--- NOTE | 2018-10-09 17:14 | XRAY ---
Indication: Scrotal pain. Two-dimensional testicular sonogram performed. Comparison: None Both testicles homogeneous in echogenicity with normal color Doppler flow. Right testicle measures 3.9 x 1.6 x 3.0 cm and the left measures 4.1 x 1.9 x 3.0 cm. Left and right epididymis sonographically unremarkable. Small nonspecific bilateral hydroceles. There is left-sided varicocele accentuated with Valsalva maneuvering. No suspicious extratesticular mass. Impression: 1. Left-sided varicocele. 2. Small nonspecific bilateral hydroceles. 2. Remaining sonogram negative for suspicious intra-/extra testicular mass or torsion.
[2018-10-09 17:16] LABS: Amphetamine,Urine NEGATIVE (NEGATIVE); Barbiturate,Urine NEGATIVE (NEGATIVE); Benzodiazepine,Urine NEGATIVE (NEGATIVE); Cocaine,Urine NEGATIVE (NEGATIVE); Methadone,Urine NEGATIVE (NEGATIVE); Opiate,Urine NEGATIVE (NEGATIVE); PCP,Urine NEGATIVE (NEGATIVE); THC,Urine NEGATIVE (NEGATIVE)
[2018-10-09 19:04] VITALS: BP 122/76; PULSE 76
== END 2018-10-09 19:05 | disposition home or self-care (01) ==
LOC: ED 12:53
DX: N50.82 Scrotal pain (principal); N50.1 Vascular disorders of male genital organs; Z79.899 Other long term (current) drug therapy
CPT/HCPCS: 36000; 36415; 76870; 80053; 80307; 81001; 82272; 85025; 99284

== ENCOUNTER 2019-01-21 12:21 | Emergency (ER) | payer MEDICARE ==
[2019-01-21 12:53] VITALS: BP 133/87; PULSE 53
--- NOTE | 2019-01-21 13:24 | ERPHSYRPT ---
- History of Present Illness Time Seen by Provider: 01/21/19 13:20 Source: patient Exam Limitations: no limitations Patient Subjective Stated Complaint: "my right leg hurts from my thigh down to the middle part of my lower leg for past 2 weeks. " Triage Nursing Assessment: C/o pain pointing to lower third of right thigh to middle of right lower leg for past 2 weeks, denies injury, states h/o cerebral palsy and h/o seizures. no obvious deformity noted. pt aaox3, able to walk wit assist, strong pedal pulses noted both feet, States h/o cerebral palsy on right side of body since . Physician History: "my right leg hurts from my thigh down to the middle part of my lower leg for past 2 weeks. " C/o pain pointing to lower third of right thigh to middle of right lower leg for past 2 weeks, denies injury, states h/o cerebral palsy and h/o seizures. Method of Injury: unknown Occurred: days ago Quality: constant Severity of Pain-Max: mild Severity of Pain-Current: mild Lower Extremities Pain: leg: right, knee: right Modifying Factors: Improves With: nothing Associated Symptoms: none Allergies/Adverse Reactions: No Known Drug Allergies Allergy (Verified 08/07/18 14:06) Home Medications: Levetiracetam [Keppra 500 mg ] 750 mg PO BID 03/03/17 [History] Lacosamide [Vimpat] 150 mg PO BID 03/13/17 [History] Losartan Potassium 50 mg [Cozaar 50 MG] 50 mg PO DAILY 03/13/17 [History] Fluoxetine HCl 40 mg PO DAILY 07/04/17 [History] Hydrochlorothiazide 25 mg [hydroDIURIL 25 MG] 25 mg PO DAILY 07/04/17 [ History] Ropinirole HCl 1 mg PO HS 07/04/17 [History] Propranolol HCl [Propranolol HCl ER] 120 mg PO HS 08/17/17 [History] Sumatriptan Succinate [Zembrace Symtouch] 3 mg SQ UD 07/16/18 [History] Hx Tetanus, Diphtheria Vaccination/Date Given: Yes Hx Influenza Vaccination/Date Given: Yes Hx Pneumococcal Vaccination/Date Given: Yes Immunizations Up to Date: Yes - Review of Systems Constitutional: No Fever, No Chills Eyes: No Symptoms Ears, Nose, & Throat: No Symptoms Respiratory: No Cough, No Dyspnea Cardiac: No Chest Pain, No Edema, No Syncope Abdominal/Gastrointestinal: No Abdominal Pain, No Nausea, No Vomiting, No Diarrhea Genitourinary Symptoms: No Dysuria Musculoskeletal: Joint Pain (right lateral side knee pain), No Back Pain, No Neck Pain, No Fall Skin: No Rash Neurological: No Dizziness, No Focal Weakness, No Sensory Changes Psychological: No Symptoms Endocrine: No Symptoms All Other Systems: Reviewed and Negative - Past Medical History Pertinent Past Medical History: Yes Neurological History: Migraines, Seizures ENT History: No Pertinent History Cardiac History: No Pertinent History, Hypertension Respiratory History: No Pertinent History Endocrine Medical History: No Pertinent History Musculoskeletal History: No Pertinent History GI Medical History: No Pertinent History History: No Pertinent History Psycho-Social History: No Pertinent History Male Reproductive Disorders: No Pertinent History, Scrotal Mass Other Medical History: cp from . - Past Surgical History Past Surgical History: Yes Neuro Surgical History: No Pertinent History Cardiac: No Pertinent History Respiratory: No Pertinent History Gastrointestinal: No Pertinent History Genitourinary: No Pertinent History Musculoskeletal: No Pertinent History Male Surgical History: No Pertinent History Other Surgical History: spinal fusion - Social History Smoking Status: Never smoker Exposure to second hand smoke: No Alcohol Use: None Drug Use: none Patient Lives Alone: Yes Significant Family History: no pertinent family hx - Nursing Vital Signs Nursing Vital Signs: Initial Vital Signs Temperature 98.2 F 01/21/19 12:41 Pulse Rate 53 L 01/21/19 12:41 Respiratory Rate 16 01/21/19 12:41 Blood Pressure 133/87 01/21/19 12:41 Pain Scale Pain Intensity 10 - Physical Exam General Appearance: no apparent distress Eyes, Ears, Nose, Throat Exam: normal ENT inspection Neck Exam: normal inspection Cardiovascular/Respiratory Exam: chest non-tender Knees Exam: right knee: soft tissue tenderness - Course Nursing assessment & vital signs reviewed: Yes - Radiology Exams Knee X-ray Interpretation: Reviewed by me Ordered Tests: Active Orders 24 hr Category Date Time Status KNEE (3 VIEWS) Stat Exams 01/21/19 13:29 Taken - Progress Progress: unchanged, pain not gone completely Counseled pt/family regarding: diagnosis, need for follow-up, rad results - Departure Departure Disposition: Home Clinical Impression: Contusion of right lower leg Qualifiers: Encounter type: initial encounter Qualified Code(s): S80.11XA - Contusion of right lower leg, initial encounter Condition: Stable Critical Care Time: No Referrals: ARCHIE SIDHU [Primary Care Provider] - Instructions: Contusion (DC) Additional Instructions: SPRAINS/STRAINS/CONTUSIONS 1. Rest the affected area as much as possible for the next few days. 2. Apply ice to the affected area for 20-30 minutes at a time, several times a day. 3. If you receive an elastic wrap, wear it only while awake for comfort and support. Re-wrap the elastic wrap if it feels too tight or too loose. 4. If swelling is present, elevate the affected part above the level of the heart for at least 2 to 3 days. 5. Use splints, slings, or crutches as instructed. 6. Watch for severe swelling, coldness, numbness, and discoloration of the fingers and toes. See your family physician or return to the emergency department if any of these are noted.ELOY SANDYDON was seen on 01/21/19 n the Emergency Room. At that time you were treated for an emergent condition, during your visit Laboratory, Radiology and/or other procedures may have been ordered. It is very important that you follow-up with your Primary Care Physician ARCHIE SIDHU within the next 24-48 hours to review your Emergency Room visit and the final results of testing that was ordered. Some test results such as Urine Cultures, Blood Cultures, and other cultures if ordered will not be finalized for 24-48 hours. If you do not have a Primary Care Provider please call the medical records department at [phone] to obtain a copy of your results or you may sign into our patient portal to obtain these results by visiting us @ [email or web address] and completing the following steps: 1. Click on the Patient Portal link 2. Click the Patient Self Enrollment Link to complete the enrollment form and entering your 3. Once the enrollment form is completed you will receive an email with a temporary ID and password at the email address you provided. 4. Next choose a user name and password. Your user name must be at least 4 characters long and your password must be at least 4 characters long. 5. Choose a security question from the list and provide your answer to the question. If you already have signed into the Health Portal you may access your Health Care Information 16/05 by the following steps: 1. Login to our website @ [email or web address] 2. Enter your original user name and password. FAQS [facility] Health Portal is an online tool that contains your Lab Results, Radiology Reports, Visit History, Discharge Instructions and Health Summary Lab and Radiology Results will not be available for 72 hours on the portal. The Portal is a secure site, passwords are encryted and URLs are re-written so they cannot be copied and pasted. You and authorized family members are the only ones who can access your Portal. Also there is a timeout feature that protects your information if you leave the Portal page open. If you have technical difficulty please use the Contact Us link on the page this will allow you to submit any questions you have regarding the Portal or you may contact the Medical Record Department at [phone]. Prescriptions: Cyclobenzaprine HCl 10 mg [Flexeril 10 MG] 10 mg PO TID #20 tablet Naproxen 375 mg [Naprosyn 375 mg] 375 mg PO Q8H #20 tablet
--- NOTE | 2019-01-21 20:07 | XRAY ---
Indication: Right knee pain 2 weeks. Comparison: None 3 views of the right knee demonstrates minimal medial joint space narrowing and tiny posterior fabella. No other bony, articular, or soft tissue abnormalities.
== END 2019-01-21 14:06 | disposition home or self-care (01) ==
LOC: ED 12:21
DX: S80.11XA Contusion of right lower leg, initial encounter (principal); M79.604 Pain in right leg; G80.9 Cerebral palsy, unspecified; G40.909 Epilepsy, unspecified, not intractable, without status epilepticus; Z79.899 Other long term (current) drug therapy; M25.561 Pain in right knee; I10 Essential (primary) hypertension
CPT/HCPCS: 73562; 99283

== ENCOUNTER 2019-04-15 21:40 | Emergency (ER) | payer MEDICARE ==
--- NOTE | 2019-04-15 21:57 | ERPHSYRPT ---
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 pt complained of a migraine headache. then had a brief h/o syncopal episode and a very brief seizure at the [facility]. it was witnessed by spouse and others. entire episode lasted 20 seconds. pt now complains of headache. pt denies cp, denies soa, and denies abd pain. denies head injury. pt has been taking his meds as prescribed. Timing/Duration: today Severity: mild Character of Deficits: none Deficits: no difficulties Baseline/Normal Cognition: alert 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 Current Cognition: alert 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 Baseline Gait: walks w/o assistance Associated Symptoms: denies symptoms, headache Allergies/Adverse Reactions: No Known Drug Allergies Allergy (Verified 04/15/19 21:46) Home Medications: Levetiracetam [Keppra 500 mg ] 750 mg PO BID 03/03/17 [History] Lacosamide [Vimpat] 150 mg PO BID 03/13/17 [History] Losartan Potassium 50 mg [Cozaar 50 MG] 50 mg PO DAILY 03/13/17 [History] Fluoxetine HCl 40 mg PO DAILY 07/04/17 [History] Hydrochlorothiazide 25 mg [hydroDIURIL 25 MG] 25 mg PO DAILY 07/04/17 [ History] Ropinirole HCl 1 mg PO HS 07/04/17 [History] Propranolol HCl [Propranolol HCl ER] 120 mg PO HS 08/17/17 [History] Sumatriptan Succinate [Zembrace Symtouch] 3 mg SQ UD 07/16/18 [History] Hx Tetanus, Diphtheria Vaccination/Date Given: Yes Hx Influenza Vaccination/Date Given: Yes Hx Pneumococcal Vaccination/Date Given: Yes - Review of Systems Constitutional: No Symptoms Eyes: No Symptoms Ears, Nose, & Throat: No Symptoms Respiratory: No Symptoms Cardiac: Syncope Abdominal/Gastrointestinal: No Symptoms Genitourinary Symptoms: No Symptoms Musculoskeletal: No Symptoms Skin: No Symptoms Neurological: Headache Psychological: No Symptoms Endocrine: No Symptoms Hematologic/Lymphatic: No Symptoms Immunological/Allergic: No Symptoms All Other Systems: Reviewed and Negative - Past Medical History Pertinent Past Medical History: Yes Neurological History: Migraines, Seizures ENT History: No Pertinent History Cardiac History: No Pertinent History, Hypertension Respiratory History: No Pertinent History Endocrine Medical History: No Pertinent History Musculoskeletal History: No Pertinent History GI Medical History: No Pertinent History History: No Pertinent History Psycho-Social History: No Pertinent History Male Reproductive Disorders: No Pertinent History, Scrotal Mass Other Medical History: cp from . - Past Surgical History Past Surgical History: Yes Neuro Surgical History: No Pertinent History Cardiac: No Pertinent History Respiratory: No Pertinent History Gastrointestinal: No Pertinent History Genitourinary: No Pertinent History Musculoskeletal: No Pertinent History Male Surgical History: No Pertinent History Other Surgical History: spinal fusion - Social History Smoking Status: Never smoker Exposure to second hand smoke: No Alcohol Use: None Drug Use: none Patient Lives Alone: Yes Significant Family History: no pertinent family hx - Nursing Vital Signs Nursing Vital Signs: Initial Vital Signs Pulse Rate 62 04/15/19 21:47 Respiratory Rate 14 04/15/19 21:47 Blood Pressure 172/106 04/15/19 21:47 O2 Sat by Pulse Oximetry 98 04/15/19 21:47 Pain Scale Pain Intensity 7 - [place] Coma Scale Best Eye Response ([place]): (4) open spontaneously Best Verbal Response ([place]): (5) oriented Best Motor Response ([place]): (6) obeys commands [place] Total: 15 - Physical Exam General Appearance: no apparent distress, alert, anxiety Eye Exam: bilateral eye: normal inspection, PERRL, EOMI Ears, Nose, Throat Exam: normal ENT inspection, moist mucous membranes Neck Exam: normal inspection, non-tender, supple, full range of motion Respiratory: normal breath sounds, lungs clear, airway intact, No chest tenderness, No respiratory distress Cardiovascular: regular rate/rhythm, normal heart sounds, normal peripheral pulses Gastrointestinal: soft, normal bowel sounds, No tenderness Rectal Exam: not done Back Exam: normal inspection, normal range of motion, No CVA tenderness, No vertebral tenderness Extremity Exam: normal inspection, normal range of motion, pelvis stable Mental Status: alert, 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, cooperative processor helper Exam: normal hearing, normal speech, PERRL, tongue midline Coordination/Gait: normal finger to nose, normal gait, normal cerebellar function Motor/Sensory: no motor deficit, no sensory deficit, no pronator drift Skin Exam: normal color, warm SpO2 Interpretation: normal O2 Delivery: Room Air - Course Nursing assessment & vital signs reviewed: Yes EKG Interpreted by Me: RATE (55), Sinus Rhythm, NORMAL AXIS, NORMAL INTERVALS, NORMAL QRS, Other (improved hr, otherwise no change vs comparison ekg dated ) Ordered Tests: Active Orders 24 hr Category Date Time Status Social Work Administrator STAT Care 04/15/19 21:58 Active Clean Catch Urine Specimen STAT Care 04/15/19 21:56 Active EKG-ER Only STAT Care 04/15/19 21:56 Active IV Insertion STAT Care 04/15/19 21:56 Active Orthostatic Vital Signs STAT Care 04/15/19 21:56 Active HEAD WITHOUT CONTRAST [CT] Stat Exams 04/15/19 21:57 Taken CBC W DIFF Stat Lab 04/15/19 22:21 Completed CMP Stat Lab 04/15/19 22:21 Completed ETHYL ALCOHOL Stat Lab 04/15/19 22:21 Completed UA W/RFX UR CULTURE Stat Lab 04/15/19 22:21 Completed Urine Triage Profile Stat Lab 04/15/19 22:21 Completed Medication Summary Discontinued Medications Generic Name Dose Route Start Last Admin Trade Name Freq PRN Reason Stop Dose Admin Hydromorphone HCl 0.5 mg 04/15/19 22:21 04/15/19 22:39 Hydromorphone 1 Mg/Ml Ampule IV 04/15/19 22:22 0.5 mg STAT ONE Administration Hydromorphone HCl Confirm 04/15/19 22:34 Hydromorphone 1 Mg/Ml Ampule Administered 04/15/19 22:35 Dose 1 mg .ROUTE .STK-MED ONE Lorazepam 1 mg 04/15/19 22:20 04/15/19 22:39 Ativan 2 Mg/1 Ml Vial IV 04/15/19 22:21 1 mg STAT ONE Administration Lorazepam Confirm 04/15/19 22:33 Ativan 2 Mg/1 Ml Vial Administered 04/15/19 22:34 Dose 2 mg .ROUTE .STK-MED ONE Ondansetron HCl 4 mg 04/15/19 22:20 04/15/19 22:39 Zofran 4 Mg/2 Ml Vial IV 04/15/19 22:21 4 mg STAT ONE Administration Ondansetron HCl Confirm 04/15/19 22:34 Zofran 4 Mg/2 Ml Vial Administered 04/15/19 22:35 Dose 4 mg .ROUTE .STK-MED ONE Lab/Rad Data: Laboratory Result Diagrams 04/15/19 22:21 04/15/19 22:21 Laboratory Results 04/15/19 04/15/19 04/15/19 Range/Units 22:21 22:21 22:21 WBC (4.0-10.5) K/mm3 RBC (4.1-5.6) M/mm3 Hgb (12.5-18.0) gm/dl Hct (42-50) % MCV (78-100) fl MCH (26-32) pg MCHC (32-36) g/dl RDW (11.5-14.0) % Plt Count (150-450) K/mm3 MPV (6-9.5) fl Gran % (36.0-66.0) % Eos # (Auto) (0-0.5) Absolute Lymphs (auto) (1.0-4.6) Absolute Monos (auto) (0.0-1.3) Lymphocytes % (24.0-44.0) % Monocytes % (0.0-12.0) % Eosinophils % (0.00-5.0) % Basophils % (0.0-0.4) % Absolute Granulocytes (1.4-6.9) Basophils # (0-0.4) Sodium 139 (137-145) mmol/L Potassium 3.6 (3.5-5.1) mmol/L Chloride 103 (98-107) mmol/L Carbon Dioxide 27 (22-30) mmol/L Anion Gap 12.9 (5-15) MEQ/L BUN 18 (9-20) mg/dL Creatinine 1.09 (0.66-1.25) mg/dL Estimated GFR > 60.0 ML/MIN Glucose 102 (74-106) mg/dL Calcium 9.1 (8.4-10.2) mg/dL Total Bilirubin 0.30 (0.2-1.3) mg/dL AST 26 (17-59) U/L ALT 32 (0-50) U/L Alkaline Phosphatase 82 (38-126) U/L Serum Total Protein 7.5 (6.3-8.2) g/dL Albumin 4.2 (3.5-5.0) g/dL Urine Color YELLOW (YELLOW) Urine Appearance CLEAR (CLEAR) Urine pH 5.0 (5-6) Ur Specific [place] 1.023 (1.005-1.025) Urine Protein NEGATIVE (Negative) Urine Ketones NEGATIVE (NEGATIVE) Urine Blood SMALL (0-5) Arnold/ul Urine Nitrite NEGATIVE (NEGATIVE) Urine Bilirubin NEGATIVE (NEGATIVE) Urine Urobilinogen NEGATIVE (0-1) mg/dL Ur Leukocyte Esterase NEGATIVE (NEGATIVE) Urine WBC (Auto) NONE (0-5) /HPF Urine RBC (Auto) NONE (0-2) /HPF U Hyaline Cast (Auto) 0-2 (0-2) /LPF U Epithel Cells (Auto) NONE (FEW) /HPF Urine Bacteria (Auto) NONE (NEGATIVE) /HPF Urine Mucus (Auto) SLIGHT (NEGATIVE) /HPF Urine Culture Reflexed NO (NO) Urine Glucose NEGATIVE (NEGATIVE) mg/dL Urine Opiates Level NEGATIVE (NEGATIVE) Ur Methadone NEGATIVE (NEGATIVE) Urine Barbiturates NEGATIVE (NEGATIVE) Ur Phencyclidine (PCP) NEGATIVE (NEGATIVE) Urine Amphetamine NEGATIVE (NEGATIVE) U Benzodiazepine Level NEGATIVE (NEGATIVE) Urine Cocaine NEGATIVE (NEGATIVE) Urine Marijuana (THC) NEGATIVE (NEGATIVE) Ethyl Alcohol < 10 (0-10) mg/dL 04/15/19 Range/Units 22:21 WBC 7.2 (4.0-10.5) K/mm3 RBC 4.44 (4.1-5.6) M/mm3 Hgb 14.5 (12.5-18.0) gm/dl Hct 41.8 L (42-50) % MCV 94.1 (78-100) fl MCH 32.7 H (26-32) pg MCHC 34.7 (32-36) g/dl RDW 12.1 (11.5-14.0) % Plt Count 194 (150-450) K/mm3 MPV 10.3 H (6-9.5) fl Gran % 48.9 (36.0-66.0) % Eos # (Auto) 0.17 (0-0.5) Absolute Lymphs (auto) 2.85 (1.0-4.6) Absolute Monos (auto) 0.63 (0.0-1.3) Lymphocytes % 39.6 (24.0-44.0) % Monocytes % 8.8 (0.0-12.0) % Eosinophils % 2.4 (0.00-5.0) % Basophils % 0.3 (0.0-0.4) % Absolute Granulocytes 3.53 (1.4-6.9) Basophils # 0.02 (0-0.4) Sodium (137-145) mmol/L Potassium (3.5-5.1) mmol/L Chloride (98-107) mmol/L Carbon Dioxide (22-30) mmol/L Anion Gap (5-15) MEQ/L BUN (9-20) mg/dL Creatinine (0.66-1.25) mg/dL Estimated GFR ML/MIN Glucose (74-106) mg/dL Calcium (8.4-10.2) mg/dL Total Bilirubin (0.2-1.3) mg/dL AST (17-59) U/L ALT (0-50) U/L Alkaline Phosphatase (38-126) U/L Serum Total Protein (6.3-8.2) g/dL Albumin (3.5-5.0) g/dL Urine Color (YELLOW) Urine Appearance (CLEAR) Urine pH (5-6) Ur Specific [place] (1.005-1.025) Urine Protein (Negative) Urine Ketones (NEGATIVE) Urine Blood (0-5) Arnold/ul Urine Nitrite (NEGATIVE) Urine Bilirubin (NEGATIVE) Urine Urobilinogen (0-1) mg/dL Ur Leukocyte Esterase (NEGATIVE) Urine WBC (Auto) (0-5) /HPF Urine RBC (Auto) (0-2) /HPF U Hyaline Cast (Auto) (0-2) /LPF U Epithel Cells (Auto) (FEW) /HPF Urine Bacteria (Auto) (NEGATIVE) /HPF Urine Mucus (Auto) (NEGATIVE) /HPF Urine Culture Reflexed (NO) Urine Glucose (NEGATIVE) mg/dL Urine Opiates Level (NEGATIVE) Ur Methadone (NEGATIVE) Urine Barbiturates (NEGATIVE) Ur Phencyclidine (PCP) (NEGATIVE) Urine Amphetamine (NEGATIVE) U Benzodiazepine Level (NEGATIVE) Urine Cocaine (NEGATIVE) Urine Marijuana (THC) (NEGATIVE) Ethyl Alcohol (0-10) mg/dL - Progress Progress: improved Counseled pt/family regarding: lab results, diagnosis, need for follow-up, rad results - Departure Departure Disposition: Home Clinical Impression: Episode of syncope Condition: Stable Critical Care Time: No Referrals: ARCHIE SIDHU [Primary Care Provider] - Additional Instructions: take your medication as prescribed. follow up with primary doctor and neurologist tomorrow.
[2019-04-15] MEDS ORDERED: Zofran 4 MG/2 ML VIAL IV ONE (22:20)
[2019-04-15] MEDS ORDERED: Ativan 2 MG/1 ML VIAL IV ONE (22:20)
[2019-04-15 22:21] LABS: BASOPHIL % 0.3 % (0.0-0.4); Basophil (Absolute #) 0.02 (0-0.4); Eosinophil % 2.4 % (0.00-5.0); Eosinophil (Absolute #) 0.17 (0-0.5); Granulocyte Absolute (ANC) 3.53 (1.4-6.9); Granulocytes % 48.9 % (36.0-66.0); Hematocrit 41.8 % (42-50); Hemoglobin 14.5 gm/dl (12.5-18.0); Lymphocyte (Absolute #) 2.85 (1.0-4.6); Lymphocytes % 39.6 % (24.0-44.0); Mean Cell Volume 94.1 fl (78-100); Mean Corpuscular Hemoglobin 32.7 pg (26-32); Mean Corpuscular Hgb Concent. 34.7 g/dl (32-36); Mean Platelet Volume 10.3 fl (6-9.5); Monocytes % 8.8 % (0.0-12.0); Platelet Count 194 K/mm3 (150-450); Red Blood Count 4.44 M/mm3 (4.1-5.6); Red Cell Distribution Width 12.1 % (11.5-14.0); White Blood Count 7.2 K/mm3 (4.0-10.5)
[2019-04-15] MEDS ORDERED: Hydromorphone 1 mg/ml Ampule IV ONE (22:21)
[2019-04-15] MEDS ORDERED: Ativan 2 MG/1 ML VIAL ONE (22:33)
[2019-04-15] MEDS ORDERED: Hydromorphone 1 mg/ml Ampule ONE (22:34)
[2019-04-15] MEDS ORDERED: Zofran 4 MG/2 ML VIAL ONE (22:34)
[2019-04-15 22:36] LABS: ALBUMIN 4.2 g/dL (3.5-5.0); ALKALINE PHOSPHATASE 82 U/L (38-126); ANION GAP 12.9 MEQ/L (5-15); BLOOD UREA NITROGEN 18 mg/dL (9-20); CHLORIDE 103 mmol/L (98-107); Calcium 9.1 mg/dL (8.4-10.2); Carbon Dioxide 27 mmol/L (22-30); Creatinine 1 1.09 mg/dL (0.66-1.25); ETHYL ALCOHOL < 10 mg/dL (0-10); Glucose 102 mg/dL (74-106); Potassium 3.6 mmol/L (3.5-5.1); SGOT/AST 26 U/L (17-59); SGPT/ALT 32 U/L (0-50); SODIUM 139 mmol/L (137-145); Total Protein 7.5 g/dL (6.3-8.2)
[2019-04-15 22:40] LABS: Appearance CLEAR (CLEAR); Bilirubin NEGATIVE (NEGATIVE); Blood SMALL Ery/ul (0-5); Glucose NEGATIVE (NEGATIVE); Hyaline Casts 0-2 /LPF (0-2); Ketones NEGATIVE (NEGATIVE); Leukocyte Esterase NEGATIVE (NEGATIVE); Mucus SLIGHT /HPF (NEGATIVE); Nitrite NEGATIVE (NEGATIVE); Protein,Urine Dip NEGATIVE (Negative); Specific Gravity 1.023 (1.005-1.025); Urobilinogen NEGATIVE mg/dL (0-1)
[2019-04-15 22:45] VITALS: BP 144/103; PULSE 68; O2SAT 97
[2019-04-15 22:47] LABS: Amphetamine,Urine NEGATIVE (NEGATIVE); Barbiturate,Urine NEGATIVE (NEGATIVE); Benzodiazepine,Urine NEGATIVE (NEGATIVE); Cocaine,Urine NEGATIVE (NEGATIVE); Methadone,Urine NEGATIVE (NEGATIVE); Opiate,Urine NEGATIVE (NEGATIVE); PCP,Urine NEGATIVE (NEGATIVE); THC,Urine NEGATIVE (NEGATIVE)
--- NOTE | 2019-04-16 08:41 | XRAY ---
Indication: Migraine. Syncopal episode. Cerebral palsy. Multiple contiguous axial images obtained through the head without contrast. Comparison: August 07, 2018. 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 Cerebellum bilaterally symmetric. No acute intracranial hemorrhage or abnormal extra-axial fluid collection. Fourth ventricle is midline. Bony calvarium intact. Visualized paranasal sinuses and mastoid air cells are clear. Impression: 1. Stable congenital brain malformation as detailed. 2. No new or acute intracranial abnormalities. Comment: Preliminary interpretation was made by [facility]. No discrepancy. CT DI 69.11
== END 2019-04-15 23:32 | disposition home or self-care (01) ==
LOC: ED 21:40
DX: R55 Syncope and collapse (principal); I10 Essential (primary) hypertension; Z79.899 Other long term (current) drug therapy
CPT/HCPCS: 36415; 70450; 80053; 80307; 81001; 85025; 93005; 93041; 96374; 96375; 99284; G0480; J1170; J2060; J2405

== ENCOUNTER 2019-08-05 16:38 | Emergency (ER) | payer MEDICARE ==
--- NOTE | 2019-08-05 17:14 | ERPHSYRPT ---
- History of Present Illness Time Seen by Provider: 08/05/19 17:09 Source: patient Exam Limitations: no limitations Patient Subjective Stated Complaint: pain left lateral knee for three weeks. denies any injury. Triage Nursing Assessment: ambulated to room per self. skin w/d, color normal, resp nonlabored. left knee normal color, no swelling noted. tender to touch Physician History: pain left lateral knee for three weeks. denies any injury. Method of Injury: unknown Occurred: days ago Quality: constant Lower Extremities Pain: knee: left Modifying Factors: Improves With: nothing Associated Symptoms: none Allergies/Adverse Reactions: No Known Drug Allergies Allergy (Verified 08/05/19 16:57) Home Medications: Levetiracetam [Keppra 500 mg ] 750 mg PO BID 03/03/17 [History] Lacosamide [Vimpat] 150 mg PO BID 03/13/17 [History] Losartan Potassium 50 mg [Cozaar 50 MG] 50 mg PO DAILY 03/13/17 [History] Fluoxetine HCl 40 mg PO DAILY 07/04/17 [History] Hydrochlorothiazide 25 mg [hydroDIURIL 25 MG] 25 mg PO DAILY 07/04/17 [ History] Ropinirole HCl 1 mg PO HS 07/04/17 [History] Propranolol HCl [Propranolol HCl ER] 120 mg PO HS 08/17/17 [History] Sumatriptan Succinate [Zembrace Symtouch] 3 mg SQ UD 07/16/18 [History] Hx Tetanus, Diphtheria Vaccination/Date Given: No Hx Influenza Vaccination/Date Given: No Hx Pneumococcal Vaccination/Date Given: No - Review of Systems Constitutional: No Symptoms Eyes: No Symptoms Ears, Nose, & Throat: No Symptoms Respiratory: No Symptoms Cardiac: No Symptoms Abdominal/Gastrointestinal: No Symptoms Genitourinary Symptoms: No Symptoms Musculoskeletal: Joint Pain (left knee and leg) - Past Medical History Pertinent Past Medical History: Yes Neurological History: Migraines, Seizures ENT History: No Pertinent History Cardiac History: No Pertinent History, Hypertension Respiratory History: No Pertinent History Endocrine Medical History: No Pertinent History Musculoskeletal History: No Pertinent History GI Medical History: No Pertinent History History: No Pertinent History Psycho-Social History: No Pertinent History Male Reproductive Disorders: No Pertinent History, Scrotal Mass Other Medical History: cp from . - Past Surgical History Past Surgical History: Yes Neuro Surgical History: No Pertinent History Cardiac: No Pertinent History Respiratory: No Pertinent History Gastrointestinal: No Pertinent History Genitourinary: No Pertinent History Musculoskeletal: No Pertinent History Male Surgical History: No Pertinent History Other Surgical History: spinal fusion - Social History Smoking Status: Never smoker Exposure to second hand smoke: No Alcohol Use: None Drug Use: none Patient Lives Alone: No Significant Family History: no pertinent family hx - Nursing Vital Signs Nursing Vital Signs: Initial Vital Signs Temperature 98 F 08/05/19 16:45 Pulse Rate 69 08/05/19 16:45 Respiratory Rate 16 08/05/19 16:45 Blood Pressure 148/88 08/05/19 16:45 O2 Sat by Pulse Oximetry 100 08/05/19 16:45 Pain Scale Pain Intensity 8 - Physical Exam General Appearance: no apparent distress Eyes, Ears, Nose, Throat Exam: normal ENT inspection Neck Exam: normal inspection Back Exam: normal inspection Legs Exam: right leg: non-tender, left leg: soft tissue tenderness, bilateral leg: normal inspection, normal range of motion, no evidence of injury Knees Exam: left knee: soft tissue tenderness SpO2: 100 - Radiology Exams Lower Leg X-ray Interpretation: Reviewed by me Ordered Tests: Active Orders 24 hr Category Date Time Status KNEE (1 OR 2 VIEW) Stat Exams 08/05/19 18:30 Taken LOWER LEG Stat Exams 08/05/19 17:14 Taken Medication Summary Discontinued Medications Generic Name Dose Route Start Last Admin Trade Name Freq PRN Reason Stop Dose Admin Naproxen 500 mg 08/05/19 18:42 Naprosyn 500 Mg PO 08/05/19 18:43 STAT ONE - Progress Progress: unchanged Counseled pt/family regarding: diagnosis, need for follow-up, rad results - Departure Departure Disposition: Home Clinical Impression: Contusion of left lower leg, initial encounter Condition: Stable Critical Care Time: No Referrals: ARCHIE SIDHU [Primary Care Provider] - Instructions: Contusion (DC) Additional Instructions: SPRAINS/STRAINS/CONTUSIONS 1. Rest the affected area as much as possible for the next few days. 2. Apply ice to the affected area for 20-30 minutes at a time, several times a day. 3. If you receive an elastic wrap, wear it only while awake for comfort and support. Re-wrap the elastic wrap if it feels too tight or too loose. 4. If swelling is present, elevate the affected part above the level of the heart for at least 2 to 3 days. 5. Use splints, slings, or crutches as instructed. 6. Watch for severe swelling, coldness, numbness, and discoloration of the fingers and toes. See your family physician or return to the emergency department if any of these are noted. Discharge/Care Plan ELOY SANDY was seen on 08/05/19 in the Emergency Room. The patient was counseled regarding Diagnosis,Lab results, Imaging studies, need for follow up and when to return to the Emergency Room. Prescriptions given: Discharge Note I have spoken with the patient and/or caregivers. I have explained the patient' s condition, diagnosis and treatment plan based on the information available to me at this time. I have answered the patient's and/or caregiver's questions and addressed any concerns. The patient and/or caregivers have as good understanding of the patient's diagnosis, condition and treatment plan as can be expected at this point. The vital signs have been stable. The patient's condition is stable and appropriate for discharge from the emergency department. The patient will pursue further outpatient evaluation with the primary care physician or other designated or consulting physician as outlined in the discharge instructions. The patient and/or caregivers are agreeable to this plan of care and follow-up instructions have been explained in detail. The patient and/or caregivers have received these instruction. The patient/and or caregivers are aware that any significant change in condition or worsening of symptoms should prompt an immediate return to this or the closest emergency department or call 911. ELOY SANDY was seen on 08/05/19 n the Emergency Room. At that time you were treated for an emergent condition, during your visit Laboratory, Radiology and/or other procedures may have been ordered. It is very important that you follow-up with your Primary Care Physician ARCHIE SIDHU within the next 24- 48 hours to review your Emergency Room visit and the final results of testing that was ordered. Some test results such as Urine Cultures, Blood Cultures, and other cultures if ordered will not be finalized for 24-48 hours. If you do not have a Primary Care Provider please call the medical records department at [phone] to obtain a copy of your results or you may sign into our patient portal to obtain these results by visiting us @ [email or web address] and completing the following steps: 1. Click on the Patient Portal link 2. Click the Patient Self Enrollment Link to complete the enrollment form and entering your 3. Once the enrollment form is completed you will receive an email with a temporary ID and password at the email address you provided. 4. Next choose a user name and password. Your user name must be at least 4 characters long and your password must be at least 4 characters long. 5. Choose a security question from the list and provide your answer to the question. If you already have signed into the Health Portal you may access your Health Care Information 16/05 by the following steps: 1. Login to our website @ [email or web address] 2. Enter your original user name and password. FAQS The [facility] Health Portal is an online tool that contains your Lab Results, Radiology Reports, Visit History, Discharge Instructions and Health Summary Lab and Radiology Results will not be available for 72 hours on the portal. The Portal is a secure site, passwords are encryted and URLs are re-written so they cannot be copied and pasted. You and authorized family members are the only ones who can access your Portal. Also there is a timeout feature that protects your information if you leave the Portal page open. If you have technical difficulty please use the Contact Us link on the page this will allow you to submit any questions you have regarding the Portal or you may contact the Medical Record Department at [phone] ext [phone]. Prescriptions: Naproxen 375 mg [Naprosyn 375 mg] 375 mg PO Q8H #30 tablet
[2019-08-05 17:42] VITALS: BP 130/86
[2019-08-05] MEDS ORDERED: Naprosyn 500 MG PO ONE (18:42)
[2019-08-05] MEDS ORDERED: MOTRIN 600 MG PO ONE (19:16)
[2019-08-05] MEDS ORDERED: MOTRIN 600 MG ONE (19:17)
[2019-08-05 19:26] VITALS: PULSE 78; O2SAT 98
--- NOTE | 2019-08-06 08:56 | XRAY ---
Indication: Pain 4 weeks. No known injury. Comparison: None AP/lateral left knee demonstrates tiny posterior fabella and small nonspecific suprapatella effusion. No other bony, articular, or soft tissue abnormalities.
--- NOTE | 2019-08-06 08:58 | XRAY ---
Indication: Pain 4 weeks. No known injury. Comparison: None 2 views of the left lower leg obtained. No bony, articular, or soft tissue abnormalities.
== END 2019-08-05 19:29 | disposition home or self-care (01) ==
LOC: ED 16:38
DX: S80.12XA Contusion of left lower leg, initial encounter (principal); M25.562 Pain in left knee; I10 Essential (primary) hypertension; Z79.899 Other long term (current) drug therapy
CPT/HCPCS: 73560; 73590; 99283; A9270-GY

== ENCOUNTER 2019-09-10 11:57 | Emergency (ER) | payer MEDICARE ==
[2019-09-10] MEDS ORDERED: TYLENOL 325 MG PO ONE (12:14)
[2019-09-10] MEDS ORDERED: Reglan 10 MG/2 ML IV ONE (12:14)
[2019-09-10] MEDS ORDERED: Sodium Chloride 0.9% 1000 ML 1,000 ML IV STA (12:14)
[2019-09-10] MEDS ORDERED: TORAdol 30 mg Injection IV ONE (12:14)
[2019-09-10] MEDS ORDERED: BENADRYL 50 MG/ML IV ONE (12:15)
--- NOTE | 2019-09-10 12:15 | ERPHSYRPT ---
- History of Present Illness Time Seen by Provider: 09/10/19 12:13 Source: patient Exam Limitations: no limitations Patient Subjective Stated Complaint: Pt states "I have a migraine that started yesterday and I cannot get rid of it." Triage Nursing Assessment: Pt presented alert and oriented X 3, skin pwd Pt ambulates with an upright steady gait, able to speak in clear fulls etnences. PT in no apprent respiratory distress. Physician History: The patient 52-year-old male with a past medical history significant for cerebral palsy and migraineswho presents chief complaint of a headache. Onset was yesterday afternoon. He describes it as a sharp chest pain located to the top of his head as well as the frontal region of his head that is constant and has progressively gotten worse since yesterday. Pain onset was gradual. Pains associated with nausea, photophobia and phonophobia. He denies vomiting, fever, chills, neck pain, chest pain shortness of breath. He states his pain is consistent with his typical migraine symptoms for which he is managed by a neurologist located in [place] but he cannot remember the name. He reportedly took a "shot" yesterday an attempt to treat his migraine. This injection was prescribed by his neurologist and sounds like an abortive medicines for his migraines. He also took some [id number] medication this morning to help treat his pain but he can't remember the name of the medication either. The patient denies focal weakness, dizziness, and syncope. The patient denies any anticoagulants. Not sure what type of heating source is in the home, but his lives with him and does not report WALKER symptoms and there is no concern for CO leak. Timing/Duration: yesterday Quality: sharpness Head Pain Location: frontal, parietal Severity of Pain-Max: severe Severity of Pain-Current: severe Recent Head Trauma: no recent headache/trauma, chronic headaches Allergies/Adverse Reactions: No Known Drug Allergies Allergy (Verified 08/05/19 16:57) Home Medications: Levetiracetam [Keppra 500 mg ] 750 mg PO BID 03/03/17 [History] Lacosamide [Vimpat] 150 mg PO BID 03/13/17 [History] Losartan Potassium 50 mg [Cozaar 50 MG] 50 mg PO DAILY 03/13/17 [History] Fluoxetine HCl 40 mg PO DAILY 07/04/17 [History] Hydrochlorothiazide 25 mg [hydroDIURIL 25 MG] 25 mg PO DAILY 07/04/17 [ History] Ropinirole HCl 1 mg PO HS 07/04/17 [History] Propranolol HCl [Propranolol HCl ER] 120 mg PO HS 08/17/17 [History] Sumatriptan Succinate [Zembrace Symtouch] 3 mg SQ UD 07/16/18 [History] Hx Tetanus, Diphtheria Vaccination/Date Given: Yes Hx Influenza Vaccination/Date Given: Yes Hx Pneumococcal Vaccination/Date Given: No Immunizations Up to Date: Yes - Review of Systems Constitutional: No Fever, No Chills Eyes: Photophobia Ears, Nose, & Throat: Other (Phonophobia) Respiratory: No Cough, No Cyanosis, No Dyspnea Cardiac: No Chest Pain Abdominal/Gastrointestinal: Nausea, No No Symptoms, No Vomiting, No Diarrhea Genitourinary Symptoms: No Symptoms Musculoskeletal: No Symptoms Skin: No Symptoms Neurological: Headache, Other (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 This is reportely normal for him), No Dizziness, No Focal Weakness, No Gait Changes, No Parasthesia, No Sensory Changes, No Speech Changes Psychological: No Symptoms All Other Systems: Reviewed and Negative - Past Medical History Pertinent Past Medical History: Yes Neurological History: Migraines, Seizures ENT History: No Pertinent History Cardiac History: No Pertinent History, Hypertension Respiratory History: No Pertinent History Endocrine Medical History: No Pertinent History Musculoskeletal History: No Pertinent History GI Medical History: No Pertinent History History: No Pertinent History Psycho-Social History: No Pertinent History Male Reproductive Disorders: No Pertinent History, Scrotal Mass Other Medical History: cp from . - Past Surgical History Past Surgical History: Yes Neuro Surgical History: No Pertinent History Cardiac: No Pertinent History Respiratory: No Pertinent History Gastrointestinal: No Pertinent History Genitourinary: No Pertinent History Musculoskeletal: No Pertinent History Male Surgical History: No Pertinent History Other Surgical History: spinal fusion - Social History Smoking Status: Never smoker Exposure to second hand smoke: Yes Alcohol Use: None Drug Use: none Patient Lives Alone: No Significant Family History: no pertinent family hx - Nursing Vital Signs Nursing Vital Signs: Initial Vital Signs Temperature 97.9 F 09/10/19 12:04 Pulse Rate 54 L 09/10/19 12:04 Respiratory Rate 16 09/10/19 12:04 Blood Pressure 166/93 09/10/19 12:04 O2 Sat by Pulse Oximetry 97 09/10/19 12:04 Pain Scale Pain Intensity 2 - Physical Exam General Appearance: no apparent distress Eye Exam: PERRL/EOMI, eyes nml inspection, photophobia, No scleral icterus, No pale conjunctivae, No EOM palsy/anisocoria Ears, Nose, Throat Exam: normal ENT inspection Neck Exam: normal inspection, supple, No meningismus, No JVD Respiratory Exam: normal breath sounds, lungs clear, No chest tenderness, No respiratory distress Cardiovascular Exam: regular rate/rhythm, normal heart sounds, capillary refill <2 sec, No murmur, No friction rub, No gallop Gastrointestinal/Abdominal Exam: soft Extremity Exam: normal inspection, other (Contractures present in the R upper and lower extremity from his CP which is his baseline) Mental Status Exam: alert, 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, cooperative, No disoriented to person, No intoxicated appearance upper doubler Exam: normal speech, tongue midline, No abnormal eye position, No abnormal speech, No facial paresthesias, No facial weakness, No gaze palsy, No tongue deviation to R, No tongue deviation to L Motor/Sensory Exam: no motor deficit (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 with weakness that he reports is his baseline), weak motor strength RUE, weak motor strength RLE, No no sensory deficit, No sensory deficit Skin Exam: normal color, warm, dry, No petechiae, No jaundice SpO2 Interpretation: normal SpO2: 97 O2 Delivery: Room Air - Course Nursing assessment & vital signs reviewed: Yes Ordered Tests: Medication Summary Discontinued Medications Generic Name Dose Route Start Last Admin Trade Name Johnq PRN Reason Stop Dose Admin Acetaminophen 975 mg 09/10/19 12:14 09/10/19 12:26 Tylenol 325 Mg PO 09/10/19 12:15 975 mg STAT ONE Administration Acetaminophen Confirm 09/10/19 12:21 Tylenol 325 Mg Administered 09/10/19 12:22 Dose 975 mg .ROUTE .STK-MED ONE Diphenhydramine HCl 25 mg 09/10/19 12:15 09/10/19 12:27 Benadryl 50 Mg/Ml IV 09/10/19 12:16 25 mg STAT ONE Administration Diphenhydramine HCl Confirm 09/10/19 12:21 Benadryl 50 Mg/Ml Administered 09/10/19 12:22 Dose 50 mg .ROUTE .STK-MED ONE Sodium Chloride 1,000 mls @ 999 mls/hr 09/10/19 12:14 09/10/19 13:13 Sodium Chloride 0.9% 1000 Ml IV 09/10/19 13:14 Infused .Q1H1M STA Infusion Sodium Chloride Confirm 09/10/19 12:21 Sodium Chloride 0.9% 1000 Ml Administered 09/10/19 12:22 Dose 1,000 mls @ ud .ROUTE .STK-MED ONE Ketorolac Tromethamine 15 mg 09/10/19 12:14 09/10/19 12:27 Toradol 30 Mg Injection IV 09/10/19 12:15 15 mg STAT ONE Administration Ketorolac Tromethamine Confirm 09/10/19 12:21 Toradol 30 Mg Injection Administered 09/10/19 12:22 Dose 30 mg .ROUTE .STK-MED ONE Metoclopramide HCl 10 mg 09/10/19 12:14 09/10/19 12:27 Reglan 10 Mg/2 Ml IV 09/10/19 12:15 10 mg STAT ONE Administration Metoclopramide HCl Confirm 09/10/19 12:21 Reglan 10 Mg/2 Ml Administered 09/10/19 12:22 Dose 10 mg .ROUTE .STK-MED ONE - Progress Progress: improved Air Movement: good Progress Note: 09/10/19 13:07 The patient was reassessed to find that his headache was almost completely resolved and that he was ready to be dischaged home. The patient has some mild akesthesias and he was instructed to take benadryl prn for relief and his symptoms would eventually resolve Counseled pt/family regarding: diagnosis, need for follow-up - Departure Departure Disposition: Home Clinical Impression: Migraine Condition: Good Critical Care Time: No Referrals: ARCHIE SIDHU [Primary Care Provider] - Instructions: Migraine Headache (DC) Additional Instructions: please take Benadryl 25 mg to 50 mg every 8 hours as needed or ear complaints of restless leg. this is likely a side effect of the medication received in emergency department today and will eventually resolve on its own with time. Otherwise, please follow up with her primary care provider and neurologist needed and take ibuprofen and/or Tylenol [id number] as needed for a headache. Plan of Treatment: Nontoxic in appearance. Patient presents with his usual headache symptoms attributed to his known hx of migraines. Patient has CP and with contracture involving the RUE and RLE which is his baseline. His remaining neuro exam was relatively benign and given his reported symptoms I decided neurocranial imaging wasn't warranted given low suspicion for SAH, ICH, or mass. He was treated symptomatically in the ED and on reassessment he endorsed he was feeling better and ready for discharge. Prescriptions: Acetaminophen Susp [Tylenol Suspension 160 mg/5 ml] 975 mg PO STAT PRN #1 bottle PRN Reason: Pain Ibuprofen 200 mg PO Q6-8HPRN PRN #30 tablet PRN Reason: Pain And/Or Fever
[2019-09-10] MEDS ORDERED: BENADRYL 50 MG/ML ONE (12:21)
[2019-09-10] MEDS ORDERED: Reglan 10 MG/2 ML ONE (12:21)
[2019-09-10] MEDS ORDERED: TYLENOL 325 MG ONE (12:21)
[2019-09-10] MEDS ORDERED: Sodium Chloride 0.9% 1000 ML 1,000 ML ONE (12:21)
[2019-09-10] MEDS ORDERED: TORAdol 30 mg Injection ONE (12:21)
[2019-09-10 13:05] VITALS: BP 142/91; PULSE 83
[2019-09-10 13:13] VITALS: O2SAT 97
== END 2019-09-10 13:21 | disposition home health service (06) ==
LOC: ED 11:57
DX: G43.909 Migraine, unspecified, not intractable, without status migrainosus (principal); Z79.899 Other long term (current) drug therapy
CPT/HCPCS: 36000; 96360; 96374; 96375; 99284; J1200; J1885; A9270-GY

== ENCOUNTER 2019-09-24 16:10 | Emergency (ER) | payer MEDICARE ==
[2019-09-24] MEDS ORDERED: BENADRYL 50 MG/ML IV ONE (16:14)
[2019-09-24] MEDS ORDERED: Pepcid 20 MG VIAL IV ONE ×2 (16:14→16:20)
[2019-09-24] MEDS ORDERED: Sodium Chloride 0.9% 1000 ML 1,000 ML IV STA (16:14)
[2019-09-24] MEDS ORDERED: Sodium Chloride 0.9% 1000 ML 1,000 ML ONE (16:20)
[2019-09-24] MEDS ORDERED: BENADRYL 50 MG/ML ONE (16:20)
[2019-09-24 16:40] LABS: INR 1.09 (0.8-3.0); PROTIME 12.3 SECONDS (8.83-12.87)
[2019-09-24 16:41] LABS: Absolute Neutrophil Ct (ANC) 4.01 (1.4-6.9); BASOPHIL % 0.3 % (0.0-0.4); Basophil (Absolute #) 0.02 (0-0.4); Eosinophil % 1.9 % (0.00-5.0); Eosinophil (Absolute #) 0.13 (0-0.5); Hemoglobin 15.2 gm/dl (12.5-18.0); Lymphocyte (Absolute #) 2.09 (1.0-4.6); Lymphocytes % 30.6 % (24.0-44.0); Mean Cell Volume 92.8 fl (78-100); Mean Corpuscular Hemoglobin 32.1 pg (26-32); Mean Corpuscular Hgb Concent. 34.5 g/dl (32-36); Mean Platelet Volume 10.6 fl (6-9.5); Monocyte (Absolute #) 0.57 (0.0-1.3); Monocytes % 8.4 % (0.0-12.0); Neutrophil % 58.8 % (36.0-66.0); Platelet Count 190 K/mm3 (150-450); Red Blood Count 4.74 M/mm3 (4.1-5.6); White Blood Count 6.8 K/mm3 (4.0-10.5)
[2019-09-24 16:44] LABS: AMYLASE 87 U/L (30-110); LIPASE 77 U/L (23-300)
--- NOTE | 2019-09-24 16:44 | XRAY ---
Indication: Dyspnea. Comparison: April 23, 2018. Portable chest again demonstrates normal heart and lungs with incidental calcified granulomas and mild right hemidiaphragm elevation. Bony thorax intact. No new/acute findings.
--- NOTE | 2019-09-24 16:47 | XRAY ---
Indication: Sore throat. Comparison: None AP/lateral soft tissue neck demonstrates widely patent supra and infraglottic airway with normal epiglottis. No radiopaque foreign body. Osseous structures intact. Impression: Negative soft tissue neck.
--- NOTE | 2019-09-24 16:50 | ERPHSYRPT ---
- History of Present Illness Time Seen by Provider: 09/24/19 16:15 Source: patient Exam Limitations: no limitations Patient Subjective Stated Complaint: pt here for sob and difficulty swallowing , sore throat Triage Nursing Assessment: pt walked in, resp easy, skin w/d/p, chest clear, abd soft, no drooling, Physician History: Tongue swelling, sore throat and mild shortness of breath since yesterday. Timing/Duration: yesterday Activities at Onset: none Severity of Dyspnea-Max: moderate Severity of Dyspnea-Current: mild Possible Cause: no prior episodes Modifying Factors: Worsens With: other (swallowing) Associated Symptoms: constant, tightness (in his throat), No anxiety, No cough, No chest pain/discomfort, No insomnia, No loss of appetite, No lightheadedness, No wheezing, No weakness, No ankle swelling, No hemoptysis, No calf pain, No dizziness, No heaviness, No heart racing, No lightheadedness, No leg swelling, No muscle spasms feet, No muscle spasms hands, No painful breathing, No productive cough, No sweating, No tingling face, No tingling hands International travel in last 2 weeks: No Allergies/Adverse Reactions: No Known Drug Allergies Allergy (Verified 09/24/19 16:15) Home Medications: Levetiracetam [Keppra 500 mg ] 750 mg PO BID 03/03/17 [History] Lacosamide [Vimpat] 150 mg PO BID 03/13/17 [History] Losartan Potassium 50 mg [Cozaar 50 MG] 50 mg PO DAILY 03/13/17 [History] Fluoxetine HCl 40 mg PO DAILY 07/04/17 [History] Hydrochlorothiazide 25 mg [hydroDIURIL 25 MG] 25 mg PO DAILY 07/04/17 [ History] Ropinirole HCl 1 mg PO HS 07/04/17 [History] Propranolol HCl [Propranolol HCl ER] 120 mg PO HS 08/17/17 [History] Sumatriptan Succinate [Zembrace Symtouch] 3 mg SQ UD 07/16/18 [History] Hx Tetanus, Diphtheria Vaccination/Date Given: Yes Hx Influenza Vaccination/Date Given: Yes Hx Pneumococcal Vaccination/Date Given: No Immunizations Up to Date: Yes - Review of Systems Constitutional: No Fever, No Chills Eyes: No Eye Pain, No Eye Redness Ears, Nose, & Throat: Throat Pain, Throat Swelling, No Ear Pain, No Ear Discharge, No Nose Pain, No Mouth Pain, No Mouth Swelling, No Hoarse, No Painful Swallowing Respiratory: No Cough, No Dyspnea Cardiac: No Chest Pain, No Edema, No Syncope Abdominal/Gastrointestinal: No Abdominal Pain, No Nausea, No Vomiting, No Diarrhea, No Hematemesis, No Hematochezia, No Melena Genitourinary Symptoms: No Dysuria, No Hematuria, No Flank Pain Musculoskeletal: No Back Pain, No Neck Pain Skin: No Rash Neurological: No Dizziness, No Focal Weakness, No Headache, No Parasthesia, No Sensory Changes Psychological: No Emotional Lability Endocrine: No Excessive Sweating Hematologic/Lymphatic: No Easy Bleeding, No Easy Bruising All Other Systems: Reviewed and Negative - Past Medical History Pertinent Past Medical History: Yes Neurological History: Migraines, Seizures ENT History: No Pertinent History Cardiac History: No Pertinent History, Hypertension Respiratory History: No Pertinent History Endocrine Medical History: No Pertinent History Musculoskeletal History: No Pertinent History GI Medical History: No Pertinent History History: No Pertinent History Psycho-Social History: No Pertinent History Male Reproductive Disorders: No Pertinent History, Scrotal Mass Other Medical History: cp from . - Past Surgical History Past Surgical History: Yes Neuro Surgical History: No Pertinent History Cardiac: No Pertinent History Respiratory: No Pertinent History Gastrointestinal: No Pertinent History Genitourinary: No Pertinent History Musculoskeletal: No Pertinent History Male Surgical History: No Pertinent History Other Surgical History: spinal fusion - Social History Smoking Status: Never smoker Exposure to second hand smoke: Yes Alcohol Use: None Drug Use: none Patient Lives Alone: No Significant Family History: no pertinent family hx - Nursing Vital Signs Nursing Vital Signs: Initial Vital Signs Temperature 97.4 F 09/24/19 16:11 Pulse Rate 84 09/24/19 16:11 Respiratory Rate 18 09/24/19 16:11 Blood Pressure 167/105 09/24/19 16:11 O2 Sat by Pulse Oximetry 99 09/24/19 16:11 Pain Scale Pain Intensity 0 - Physical Exam General Appearance: no apparent distress, alert Eye Exam: PERRL/EOMI, eyes nml inspection, No scleral icterus Ears, Nose, Throat Exam: hearing grossly normal, normal ENT inspection, normal pharynx, No abnormal TM (R), No abnormal TM (L), No sinus pain/drainage, No hearing decreased, No nasal congestion, No pharyngeal erythema, No tonsillar exudate, No tonsillar swelling Neck Exam: normal inspection, non-tender, supple, full range of motion, No Brudzinski, No Kernig's, No lymphadenopathy (R), No lymphadenopathy (L) Respiratory Exam: normal breath sounds, lungs clear, airway intact, No chest tenderness, No respiratory distress, No diminished breath sounds, No accessory muscle use, No prolonged expirations, No crackles/rales, No rhonchi, No wheezing , No stridor Cardiovascular/Chest Exam: normal heart sounds, regular rate/rhythm, normal peripheral pulses, No edema Abdominal/Gastrointestinal Exam: soft, normal bowel sounds, No tenderness, No distention, No mass, No guarding Extremity Exam: non-tender, normal range of motion, normal inspection, no calf tenderness, no pedal edema Peripheral Pulses Exam: carotid (R): 2+, carotid (L): 2+, dorsalis-pedis (R): 2+ , dorsalis-pedis (L): 2+ Neurologic Exam: alert, 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, cooperative, analyst competitive intelligence II-XII nml as tested, sensation nml, No motor deficits Skin Exam: normal color, warm, No dry, No petechiae, No jaundice, No abrasion, No cyanosis, No embolic lesions, No jaundice Lymphatic Exam: No adenopathy SpO2 Interpretation: normal SpO2: 99 O2 Delivery: Room Air - Course Nursing assessment & vital signs reviewed: Yes EKG Interpreted by Me: RATE (66), Sinus Rhythm, LAFB, NORMAL INTERVALS, NORMAL QRS, NORMAL ST-T, Other (negative for any appreciable change in comparison to EKG from 04/15/2019) - Radiology Exams Chest X-ray Interpretation: Reviewed by me, No Pneumonia, No Pneumothorax, Nml Heart Size, No Infiltrates, Nml Mediastinum, Other (radiologist interpretation: Portable chest again demonstrates normal heart and lungs with incidental calcified granulomas and mild right hemidiaphragm elevation. bony thorax intact. No new/acute findings) Other X-ray Interpretation: Interpreted by me, Reviewed by me, Other (rradiologist interpretation:neck soft tissue: AP/lateral soft tissue neck demonstrated wildly patent supra-and in for lock airway with normal epiglottis. No radiopaque foreign body. Osseous structures intact. Overall impression: Negative soft tissue neck) Ordered Tests: Active Orders 24 hr Category Date Time Status EKG-ER Only STAT Care 09/24/19 16:15 Active IV Insertion STAT Care 09/24/19 16:14 Active CHEST 1 VIEW (PORTABLE) Stat Exams 09/24/19 16:16 Completed NECK SOFT TISSUE Stat Exams 09/24/19 16:17 Completed AMYLASE Stat Lab 09/24/19 16:30 Completed CBC W DIFF Stat Lab 09/24/19 16:30 Completed LIPASE Stat Lab 09/24/19 16:30 Completed Lactic Acid Stat Lab 09/24/19 17:26 Completed PROTIME WITH INR Stat Lab 09/24/19 16:30 Completed TROPONIN Q3H Lab 09/24/19 16:30 Completed TROPONIN Q3H Lab 09/24/19 19:30 Ordered TROPONIN Q3H Lab 09/24/19 22:30 Ordered TROPONIN Q3H Lab 09/25/19 01:30 Ordered TROPONIN Q3H Lab 09/25/19 04:30 Ordered Medication Summary Discontinued Medications Generic Name Dose Route Start Last Admin Trade Name Freq PRN Reason Stop Dose Admin Diphenhydramine HCl 50 mg 09/24/19 16:14 09/24/19 16:25 Benadryl 50 Mg/Ml IV 09/24/19 16:15 50 mg STAT ONE Administration Diphenhydramine HCl Confirm 09/24/19 16:20 Benadryl 50 Mg/Ml Administered 09/24/19 16:21 Dose 50 mg .ROUTE .STK-MED ONE Famotidine 20 mg 09/24/19 16:14 09/24/19 16:24 Pepcid 20 Mg Vial IV 09/24/19 16:15 20 mg STAT ONE Administration Famotidine Confirm 09/24/19 16:20 Pepcid 20 Mg Vial Administered 09/24/19 16:21 Dose 20 mg IV .STK-MED ONE Sodium Chloride 1,000 mls @ 999 mls/hr 09/24/19 16:14 09/24/19 17:25 Sodium Chloride 0.9% 1000 Ml IV 09/24/19 17:14 Infused .Q1H1M STA Infusion Sodium Chloride Confirm 09/24/19 16:20 Sodium Chloride 0.9% 1000 Ml Administered 09/24/19 16:21 Dose 1,000 mls @ .ROUTE .[facility] ONE Lab/Rad Data: Laboratory Result Diagrams 09/24/19 16:30 Laboratory Results 09/24/19 09/24/19 09/24/19 Range/Units 17:26 16:30 16:30 WBC (4.0-10.5) K/mm3 RBC (4.1-5.6) M/mm3 Hgb (12.5-18.0) gm/dl Hct (42-50) % MCV (78-100) fl MCH (26-32) pg MCHC (32-36) g/dl RDW (11.5-14.0) % Plt Count (150-450) K/mm3 MPV (6-9.5) fl Gran % (36.0-66.0) % Eos # (Auto) (0-0.5) Absolute Lymphs (auto) (1.0-4.6) Absolute Monos (auto) (0.0-1.3) Lymphocytes % (24.0-44.0) % Monocytes % (0.0-12.0) % Eosinophils % (0.00-5.0) % Basophils % (0.0-0.4) % Absolute Granulocytes (1.4-6.9) Basophils # (0-0.4) PT (8.83-12.87) SECONDS INR (0.8-3.0) Lactic Acid 1.2 (0.4-2.0) Troponin I < 0.012 (0.000-0.034) ng/mL Amylase (30-110) U/L Lipase (23-300) U/L Group A Strep Antibody NEGATIVE (NEGATIVE) 09/24/19 09/24/19 09/24/19 Range/Units 16:30 16:30 16:30 WBC 6.8 (4.0-10.5) K/mm3 RBC 4.74 (4.1-5.6) M/mm3 Hgb 15.2 (12.5-18.0) gm/dl Hct 44.0 (42-50) % MCV 92.8 (78-100) fl MCH 32.1 H (26-32) pg MCHC 34.5 (32-36) g/dl RDW 12.0 (11.5-14.0) % Plt Count 190 (150-450) K/mm3 MPV 10.6 H (6-9.5) fl Gran % 58.8 (36.0-66.0) % Eos # (Auto) 0.13 (0-0.5) Absolute Lymphs (auto) 2.09 (1.0-4.6) Absolute Monos (auto) 0.57 (0.0-1.3) Lymphocytes % 30.6 (24.0-44.0) % Monocytes % 8.4 (0.0-12.0) % Eosinophils % 1.9 (0.00-5.0) % Basophils % 0.3 (0.0-0.4) % Absolute Granulocytes 4.01 (1.4-6.9) Basophils # 0.02 (0-0.4) PT 12.3 (8.83-12.87) SECONDS INR 1.09 (0.8-3.0) Lactic Acid (0.4-2.0) Troponin I (0.000-0.034) ng/mL Amylase 87 (30-110) U/L Lipase 77 (23-300) U/L Group A Strep Antibody (NEGATIVE) - Progress Progress: re-examined Air Movement: good Progress Note: 09/24/19 17:08 patient is in no type of respiratory distress with no signs of stridor or wheeze on repeat examination with no hypoxia on the pulse oximetry monitor 09/24/19 18:06 Patient denies any dyspnea or swelling sensation in his throat 09/24/19 18:47 Patient is hemodynamically in good condition and denies any dyspnea or tongue swelling. repeat examination shows no tongue edema, posterior oropharynx is patent with no swelling the uvula, and no stridor or wheezing or any type of respiratory distress on repeat examination. Blood Culture(s) Obtained: No Antibiotics given: No Counseled pt/family regarding: lab results, diagnosis, need for follow-up, rad results - Departure Departure Disposition: Home Clinical Impression: Tongue swelling Hypertension Qualifiers: Hypertension type: essential hypertension Qualified Code(s): I10 - Essential ( primary) hypertension Dyspnea Qualifiers: Dyspnea type: unspecified Qualified Code(s): R06.00 - Dyspnea, unspecified Acute pharyngitis Qualifiers: Pharyngitis/tonsillitis etiology: unspecified etiology Qualified Code(s): J02.9 - Acute pharyngitis, unspecified Condition: Good Critical Care Time: No Referrals: ARCHIE SIDHU [Primary Care Provider] - 09/25/19 Instructions: Angioedema (DC), Shortness of Breath (Dyspnea) (DC), Strep Throat (DC) Additional Instructions: Your x-rays of your neck and chest as well EKG, cardiac monitoring and laboratory did not show a cause for your symptoms today. Return immediately back to the emergency room if any worse shortness of breath, swelling sensation in the mouth, tongue or throat, any new fever, any new chest pain, and any back pain, any abdominal pain, or any new rashes any new signs or symptoms that were not present at today's emergency department visit for immediate reevaluation in the emergency department. Prescriptions: Desloratadine [Clarinex] 5 mg PO DAILY PRN #10 tablet PRN Reason: Allergies EPINEPHrine [Epipen 0.3 MG] 0.3 mg IM DAILY PRN PRN #1 pack PRN Reason: Allergies Vaporizer 1 each MC HS PRN #1 each PRN Reason: Cough
[2019-09-24 18:47] VITALS: BP 148/100; PULSE 54
[2019-09-24 18:50] VITALS: O2SAT 99
== END 2019-09-24 18:53 | disposition home or self-care (01) ==
LOC: ED 16:10
DX: K14.8 Other diseases of tongue (principal); I10 Essential (primary) hypertension; J02.9 Acute pharyngitis, unspecified; R13.10 Dysphagia, unspecified; Z79.899 Other long term (current) drug therapy; R06.02 Shortness of breath
CPT/HCPCS: 36000; 36415; 70360; 71045; 82150; 83605; 83690; 84484; 85025; 85610; 87651; 93005; 96360; 96374; 96375; 99284; J1200

== ENCOUNTER 2020-01-03 03:01 | Emergency (ER) | payer MEDICARE ==
[2020-01-03 03:12] VITALS: O2SAT 95
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
[2020-01-03 04:09] VITALS: BP 127/87; PULSE 86
== END 2020-01-03 04:00 | disposition home or self-care (01) ==
LOC: ED 03:01
DX: R45.6 Violent behavior (principal); F43.20 Adjustment disorder, unspecified; Z63.4 Disappearance and death of family member; G80.9 Cerebral palsy, unspecified
CPT/HCPCS: 99284

== ENCOUNTER 2021-03-26 11:44 | Emergency (ER) | payer MEDICARE ==
[2021-03-26] MEDS ORDERED: MORPHINE SULFATE 4 MG INJ IM ONE (12:10)
[2021-03-26] MEDS ORDERED: MORPHINE SULFATE 4 MG INJ ONE (12:21)
--- NOTE | 2021-03-26 13:12 | XRAY ---
Indication: Status post fall 2 days ago. Multiple contiguous axial images obtained through the cervical spine. Sagittal and coronal reformatted images obtained. Comparison: None Axial images negative for acute fracture, suspicious bony lesions, or spinal canal stenosis. Minimal C6-C7 degenerative endplate spurring and minimal multilevel bilateral degenerative facet arthropathy. Sagittal and coronal reformatted images demonstrates normal lordosis mild levoscoliosis centered at the 5 and and minimal C6-7 disc space narrowing. No acute compression fracture, seen, or jumped facet. Normal appearing craniocervical. Visualized noncontrasted soft tissues demonstrates multiple centimeter/subcentimeter cervical nodes bilaterally presumed reactive. Lung apices clear. Impression: 1. Negative acute fracture/subluxation. 2. Incidental levoscoliosis and C6-7 degenerative disc disease.
--- NOTE | 2021-03-26 13:12 | XRAY ---
Indication: Pain following fall. Comparison: 3 view left shoulder demonstrates mild AC degenerative arthropathy with tiny inferior spurring and incidental right perihilar calcified nodes. No other bony articular, or soft tissue abnormalities.
--- NOTE | 2021-03-26 13:12 | XRAY ---
Indication: Status post fall. Multiple contiguous axial is obtained through the head without contrast. Comparison: April 15, 2019. 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 Cerebellum symmetric. New minimal periventricular degenerative micro-ischemia bilaterally. No acute intracranial hemorrhage or abnormal extra-axial fluid collection. Fourth ventricle remains midline. Bony calvarium intact. Visualized paranasal sinuses and mastoid air cells are clear. Impression: Stable congenital brain malformation as detailed. New minimal degenerative micro-ischemia. No acute intracranial abnormalities.
--- NOTE | 2021-03-26 13:14 | XRAY ---
Indication: Pain following fall. Comparison: September 24, 2019. PA/lateral chest again demonstrates normal heart and lungs with incidental calcified granulomas. Bony thorax intact. New/acute findings.
--- NOTE | 2021-03-26 13:20 | ERPHSYRPT ---
- History of Present Illness Time Seen by Provider: 03/26/21 11:49 Source: patient Exam Limitations: no limitations Patient Subjective Stated Complaint: pt here for a fall out of bed of a truck 2 days ago, no loc, co pain to left shoulder and uppper back Triage Nursing Assessment: pt alert, face mask in place, walked in , resp easy , skin w/d/p , no bruising or abarasion noted Physician History: 50 years old male with history of cerebral palsy with chronic weakness in the right side, fell off of a truck back 2 days ago on his left shoulder and did hit his head without loss of consciousness. Patient reports initially it was minimally painful but gradually is having moderate to severe sharp pain which is not getting any better with taking [id number] pain medications. Pain is aggravated with movements of left upper extremity especially at the shoulder area and neck movements. Denies any numbness tingling or focal weakness. No blurry vision. No nausea or vomiting reported. No chest pain palpitations or shortness of breath. Occurred: days ago (2) Reason for Fall: fell from height Injuries/Pain Location: neck, upper extremity Loss of Consciousness: no loss of consciousness Quality: sharpness Severity of Pain-Max: moderate Severity of Pain-Current: moderate Modifying Factors: Improves With: immobilization, rest. Worsens With: movement Associated Symptoms (Fall): extremity injury, neck pain Allergies/Adverse Reactions: No Known Drug Allergies Allergy (Verified 03/26/21 11:54) Home Medications: Levetiracetam [Keppra 500 mg ] 750 mg PO BID 03/03/17 [History] Lacosamide [Vimpat] 150 mg PO BID 03/13/17 [History] Losartan Potassium 50 mg [Cozaar 50 MG] 50 mg PO DAILY 03/13/17 [History] Fluoxetine HCl 40 mg PO DAILY 07/04/17 [History] Hydrochlorothiazide 25 mg [hydroDIURIL 25 MG] 25 mg PO DAILY 07/04/17 [History] Ropinirole HCl 1 mg PO HS 07/04/17 [History] Propranolol HCl [Propranolol HCl ER] 120 mg PO HS 08/17/17 [History] SUMAtriptan succinate [Zembrace Symtouch] 3 mg SQ UD 07/16/18 [History] Hx Tetanus, Diphtheria Vaccination/Date Given: Yes Hx Influenza Vaccination/Date Given: Yes Hx Pneumococcal Vaccination/Date Given: No Immunizations Up to Date: Yes Travel Risk - International Travel Have you traveled outside of the country in past 3 weeks: No - Coronavirus Screening Are you exhibiting any of the following symptoms?: No Close contact with a COVID-19 positive Pt in past 14-21 Days: No - Vaccine Status Have you recieved a Covid-19 vaccination: Yes 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 - Vaccination Dates Date of 2cond Vaccination (if applicable): february - Review of Systems Constitutional: No Symptoms Eyes: No Symptoms Ears, Nose, & Throat: No Symptoms Respiratory: No Symptoms Cardiac: No Symptoms Abdominal/Gastrointestinal: No Symptoms Genitourinary Symptoms: No Symptoms Musculoskeletal: Deformity, Fall, Injury, Joint Pain Skin: No Symptoms Neurological: No Symptoms Psychological: No Symptoms Endocrine: No Symptoms Hematologic/Lymphatic: No Symptoms Immunological/Allergic: No Symptoms - Past Medical History Pertinent Past Medical History: Yes Neurological History: Migraines, Seizures ENT History: No Pertinent History Cardiac History: No Pertinent History, Hypertension Respiratory History: No Pertinent History Endocrine Medical History: No Pertinent History Musculoskeletal History: No Pertinent History GI Medical History: No Pertinent History History: No Pertinent History Psycho-Social History: No Pertinent History Male Reproductive Disorders: Scrotal Mass Other Medical History: cp from . - Past Surgical History Past Surgical History: Yes Neuro Surgical History: No Pertinent History Cardiac: No Pertinent History Respiratory: No Pertinent History Gastrointestinal: No Pertinent History Genitourinary: No Pertinent History Musculoskeletal: No Pertinent History, Orthopedic Surgery Male Surgical History: No Pertinent History Other Surgical History: spinal fusion, rt foot reconstructed - Social History Smoking Status: Never smoker Exposure to second hand smoke: No Alcohol Use: None Drug Use: none Patient Lives Alone: No Significant Family History: no pertinent family hx - Nursing Vital Signs Nursing Vital Signs: Pain Scale Pain Intensity 10 - Kentrell Coma Score Best Eye Response (Kentrell): (4) open spontaneously Best Verbal Response (Hinckley): (5) oriented Best Motor Response (Kentrell): (6) obeys commands [place]inckley Total: 15 - Physical Exam General Appearance: no apparent distress, alert Head Injury: no evidence of injury, No active bleeding, No Webb's Sign, No contusions, No raccoon eyes, No swelling, No tenderness Eye Exam: PERRL/EOMI, eyes nml inspection ENT Exam: airway nml, evidence of ENT injury, No dental injury Neck Exam: supple, trachea midline, full range of motion, normal alignment, paraspinous muscle tender, pain on movement of neck, tenderness, No mid-line tenderness Respiratory/Chest Exam: chest tenderness (Left upper), normal breath sounds, respiratory distress Cardiovascular Exam: normal heart sounds, regular rate/rhythm Gastrointestinal Exam: soft, normal bowel sounds, No tenderness Extremity Exam: other (Right wrist drop. Wasting in the right upper extremity as compared to left. Painful movements of the left shoulder with tenderness around shoulder. Intact range of motion. Distal neurovascular intact in the left upper extremity.) Neurologic Exam: alert, 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, cooperative, command and control II-XII nml as tested, no rmal mood/affect, sensation nml, motor deficits, other (No new deficit on the left side as compared to what he has previously on the right.) Skin Exam: normal color SpO2 Interpretation: normal SpO2: 95 O2 Delivery: Room Air Ordered Tests: Active Orders 24 hr Category Date Time Status CERVICAL SPINE WO CONTRAST [CT] Stat Exams 03/26/21 12:09 Completed CHEST 2 VIEWS (PA AND LAT) Stat Exams 03/26/21 12:10 Completed HEAD WITHOUT CONTRAST [CT] Stat Exams 03/26/21 12:09 Completed SHOULDER Stat Exams 03/26/21 12:44 Completed Medication Summary Discontinued Medications Generic Name Dose Route Start Last Admin Trade Name Monalisa PRN Reason Stop Dose Admin Morphine Sulfate 4 mg 03/26/21 12:10 03/26/21 12:22 Morphine Sulfate 4 Mg Inj IM 03/26/21 12:11 4 mg STAT ONE Administration Morphine Sulfate Confirm 03/26/21 12:21 Morphine Sulfate 4 Mg Inj Administered 03/26/21 12:22 Dose 4 mg .ROUTE .STK-MED ONE - Progress Progress: improved Progress Note: 03/26/21 13:40 Given symptomatic treatment for pain, reevaluation feeling better. CT head and cervical spine negative for any acute trauma related findings. Chest x-ray and left shoulder x-ray negative for any acute trauma related findings. I believe patient has contusion in the left shoulder, recommended Tylenol ibuprofen and outpatient follow-up. Discussed signs symptoms of worsening needing return to ER which he seems understanding. Counseled pt/family regarding: diagnosis, need for follow-up, rad results - Departure Departure Disposition: Home Clinical Impression: Contusion of left shoulder Qualifiers: Encounter type: initial encounter Qualified Code(s): S40.012A - Contusion of left shoulder, initial encounter Neck muscle strain Qualifiers: Encounter type: initial encounter Qualified Code(s): S16.1XXA - Strain of muscle, fascia and tendon at neck level, initial encounter Fall Qualifiers: Encounter type: initial encounter Qualified Code(s): W19.XXXA - Unspecified fall, initial encounter Condition: Stable Critical Care Time: No Referrals: ARCHIE SIDHU [NON-STAFF PHY W/O PRIVILEGES] - Follow Up with PCP/3 days Instructions: Contusion (DC), Preventing Falls Additional Instructions: Take Tylenol/ibuprofen as needed for pain. Follow-up with your primary care physician for reevaluation. Return to ER for worsening pain, numbness tingling or focal weakness.
[2021-03-26 13:53] VITALS: PULSE 78; O2SAT 97
== END 2021-03-26 13:54 | disposition home or self-care (01) ==
LOC: ED 11:44
DX: S40.012A Contusion of left shoulder, initial encounter (principal); S16.1XXA Strain of muscle, fascia and tendon at neck level, initial encounter; W17.89XA Other fall from one level to another, initial encounter; Y92.9 Unspecified place or not applicable; Y99.8 Other external cause status; M54.2 Cervicalgia; Z79.899 Other long term (current) drug therapy
CPT/HCPCS: 70450; 71046; 72125; 73030; 96372; 99284; J2270

== ENCOUNTER 2021-05-18 17:21 | Emergency (ER) | payer MEDICARE ==
[2021-05-18 18:01] VITALS: O2SAT 97
[2021-05-18] MEDS ORDERED: TORAdol 30 mg Injection IM ONE (18:42)
--- NOTE | 2021-05-18 18:47 | ERPHSYRPT ---
- History of Present Illness Source: patient Exam Limitations: no limitations Patient Subjective Stated Complaint: Pt states "I turned around and stepped into a hole and hit my right elbow on a cinder block and it hurts." Triage Nursing Assessment: pt presnted alert and oriented X 3, skin pwd Pt ambulates with an upright steady gait, able to speak in clear full sentences pt in no apparent respiratory distress. Pt right elbow has no swelling, no bruising, slight tendernes noted. Physician History: 50 yo wm w limited use of RUE due to CP presents after fall. Pt slipped and fell onto concrete. He denies other/previous injury. LOC/WALKER/C,t,L-spine NTTP/Hips nttp. Occurred: other (15:00) Method of Injury: fell Quality: constant Severity of Pain-Max: moderate Severity of Pain-Current: moderate Extremities Pain Location: elbow: right Modifying Factors: Improves With: movement Associated Symptoms: none Allergies/Adverse Reactions: No Known Drug Allergies Allergy (Verified 03/26/21 11:54) Home Medications: Levetiracetam [Keppra 500 mg ] 750 mg PO BID 03/03/17 [History] Lacosamide [Vimpat] 150 mg PO BID 03/13/17 [History] Losartan Potassium 50 mg [Cozaar 50 MG] 50 mg PO DAILY 03/13/17 [History] Fluoxetine HCl 40 mg PO DAILY 07/04/17 [History] Hydrochlorothiazide 25 mg [hydroDIURIL 25 MG] 25 mg PO DAILY 07/04/17 [History] Ropinirole HCl 1 mg PO HS 07/04/17 [History] Propranolol HCl [Propranolol HCl ER] 120 mg PO HS 08/17/17 [History] SUMAtriptan succinate [Zembrace Symtouch] 3 mg SQ UD 07/16/18 [History] Hx Tetanus, Diphtheria Vaccination/Date Given: Yes Hx Influenza Vaccination/Date Given: Yes Hx Pneumococcal Vaccination/Date Given: Yes Immunizations Up to Date: Yes Travel Risk - International Travel Have you traveled outside of the country in past 3 weeks: No - Coronavirus Screening Are you exhibiting any of the following symptoms?: No Close contact with a COVID-19 positive Pt in past 14-21 Days: No - Vaccine Status Have you recieved a Covid-19 vaccination: Yes 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 - Vaccination Dates Date of 2cond Vaccination (if applicable): 12/2020 - Review of Systems Constitutional: No Symptoms Eyes: No Symptoms Ears, Nose, & Throat: No Symptoms Respiratory: No Symptoms Cardiac: No Symptoms Abdominal/Gastrointestinal: No Symptoms Genitourinary Symptoms: No Symptoms Skin: No Symptoms Neurological: No Symptoms Psychological: No Symptoms Endocrine: No Symptoms Hematologic/Lymphatic: No Symptoms Immunological/Allergic: No Symptoms - Past Medical History Pertinent Past Medical History: Yes Neurological History: Migraines, Seizures ENT History: No Pertinent History Cardiac History: No Pertinent History, Hypertension Respiratory History: No Pertinent History Endocrine Medical History: No Pertinent History Musculoskeletal History: No Pertinent History GI Medical History: No Pertinent History History: No Pertinent History Psycho-Social History: No Pertinent History Male Reproductive Disorders: Scrotal Mass Other Medical History: cp from . - Past Surgical History Past Surgical History: Yes Neuro Surgical History: No Pertinent History Cardiac: No Pertinent History Respiratory: No Pertinent History Gastrointestinal: No Pertinent History Genitourinary: No Pertinent History Musculoskeletal: No Pertinent History, Orthopedic Surgery Male Surgical History: No Pertinent History Other Surgical History: spinal fusion, rt foot reconstructed - Social History Smoking Status: Never smoker Exposure to second hand smoke: Yes Alcohol Use: None Drug Use: none Patient Lives Alone: No Significant Family History: no pertinent family hx - Nursing Vital Signs Nursing Vital Signs: Initial Vital Signs Temperature 97.8 F 05/18/21 17:55 Pulse Rate 77 05/18/21 17:55 Respiratory Rate 20 05/18/21 17:55 Blood Pressure 167/107 05/18/21 17:55 O2 Sat by Pulse Oximetry 97 05/18/21 17:55 Pain Scale Pain Intensity 6 Hypertensive - Physical Exam General Appearance: no apparent distress, obese Eyes, Ears, Nose, Throat Exam: normal ENT inspection, TMs normal, moist mucous membranes Neck Exam: normal inspection, non-tender (C-spine nttp) Cardiovascular/Respiratory Exam: chest non-tender, normal breath sounds, regular rate/rhythm, heart sounds normal Abdominal Exam: non-tender, soft Back Exam: normal inspection (No T,L-spine ttp) Shoulder Exam: normal inspection Elbow/Forearm Exam: bone tenderness (R olecranon ttp/Minimal edema/Limited use due to CP/Good radial pulse, distal sensation, and capillary return) Wrist Exam: normal inspection Hand Exam: normal inspection Mental Status Exam: alert, 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, cooperative Skin Exam: normal color, warm, dry SpO2 Interpretation: normal SpO2: 97 O2 Delivery: Room Air - Course Nursing assessment & vital signs reviewed: Yes - Radiology Exams Elbow X-ray Interpretation: Interpreted by me (Melecio burnham neg per ER read) Ordered Tests: Active Orders 24 hr Category Date Time Status Raphael Bandage Application -[facility] STAT Care 05/18/21 19:03 Completed ELBOW (MINIMUM 3 VIEWS) Stat Exams 05/18/21 18:07 Taken Medication Summary Discontinued Medications Generic Name Dose Route Start Last Admin Trade Name Freq PRN Reason Stop Dose Admin Ketorolac Tromethamine 60 mg 05/18/21 18:42 05/18/21 19:20 Toradol 30 Mg Injection IM 05/18/21 18:43 60 mg STAT ONE Administration Ketorolac Tromethamine Confirm 05/18/21 19:16 Toradol 30 Mg Injection Administered 05/18/21 19:17 Dose 60 mg .ROUTE .STCME-MED ONE - Progress Progress Note: 05/18/21 19:02 60mg IM Toradol Counseled pt/family regarding: need for follow-up, rad results - Departure Departure Disposition: Home Clinical Impression: Contusion, elbow Condition: Stable Critical Care Time: No Referrals: DOCTOR,NO FAMILY [Primary Care Provider] - Instructions: Contusion (DC) Additional Instructions: Ice for 12-24 hours Raphael wrap for 2-3 days Toradol as needed for pain Prescriptions: Ketorolac Tromethamine [Toradol] 10 mg PO TID PRN #10 tablet PRN Reason: Pain
[2021-05-18] MEDS ORDERED: TORAdol 30 mg Injection ONE (19:16)
[2021-05-18 19:32] VITALS: BP 178/101; PULSE 67
--- NOTE | 2021-05-19 08:45 | XRAY ---
Indication: Pain following injury. Comparison: None 3 view right elbow obtained. No bony, articular, or soft tissue abnormalities.
== END 2021-05-18 19:49 | disposition home or self-care (01) ==
LOC: ED 17:21
DX: S50.01XA Contusion of right elbow, initial encounter (principal); W01.198A Fall on same level from slipping, tripping and stumbling with subsequent striking against other object, initial encounter; Y93.89 Activity, other specified; Y92.9 Unspecified place or not applicable; I10 Essential (primary) hypertension
CPT/HCPCS: 73080; 96372; 99284; J1885

== ENCOUNTER 2022-10-16 19:34 | Emergency (ER) | payer OTHER, MEDICARE ==
[2022-10-16 21:11] VITALS: BP 143/91; O2SAT 98
--- NOTE | 2022-10-16 21:50 | XRAY ---
Indication: Pain and dizziness. Facial injury. Status post fall. Multiple contiguous axial images obtained through the head without contrast. 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 No acute intracranial hemorrhage, abnormal extra-axial fluid collection, or mass effect. Fourth ventricle is midline. Bony calvarium intact. Visualized paranasal sinuses and mastoid air cells are clear. Impression: Grossly stable congenital brain malformation as detailed and minimal degenerative micro-ischemia. No new/acute intracranial abnormalities. Comment: Preliminary interpretation made by [facility]. No critical discrepancy.
--- NOTE | 2022-10-16 21:53 | XRAY ---
Indication: Pain and dizziness. Facial injury. Status post fall. Multiple contiguous axial images obtained through the cervical spine. Sagittal and coronal reformatted images obtained. Comparison: March 26, 2021 Axial images again negative for acute fracture, suspicious bony lesions, or spinal canal stenosis. There remains minimal C6-C7 degenerative endplate spurring and minimal multilevel bilateral degenerative facet hypertrophy. Sagittal and coronal reformatted images again demonstrates minimal levoscoliosis and minimal C6-C7 disc space narrowing. No acute compression fracture, subluxation, or jump facet. Normal appearing craniocervical junction. Visualized noncontrasted soft tissues including on the bases are unremarkable. Impression: 1. Continued negative acute fracture/subluxation. 2. Again incidental levoscoliosis and C6-C7 degenerative changes. Comment: Preliminary interpretation made by [facility]. No critical discrepancy.
--- NOTE | 2022-10-16 21:56 | XRAY ---
Indication: Pain following fall. Nasal injury. Multiple contiguous axial images obtained through the facial bones. Sagittal and coronal reformatted images obtained. Comparison: July 27, 2017 A few right dental myelograms produces beam artifact. Axial images again negative for acute fracture, suspicious bony lesions, or radiopaque foreign body. Orbits including roof, holley, and floors intact. Paranasal sinuses and nasal passages are pneumatized and clear. Again mild nasal septal deviation to the right. Remaining visualized noncontrasted soft tissues unremarkable. Impression: Continued negative CT facial bones. Again incidental mild nasal septal deviation Comment: Preliminary interpretation made by [facility]. No critical discrepancy.
--- NOTE | 2022-10-16 22:07 | ERPHSYRPT ---
- History of Present Illness Time Seen by Provider: 10/16/22 19:36 Source: patient Exam Limitations: no limitations Patient Subjective Stated Complaint: pt states "I slipped on the ice and landed face first." Triage Nursing Assessment: pt presents to ED via scat 1, pt transferred from ems cot to bed by self, pt alert and oriented x3, pt had a fall on the ice and landed face first, pt denies LOC or blood thinners, pt c/o pain on the bridge of his nose 06/02, no obvious injuries noted Physician History: 52-year-old presented in the ER with chief complaint of fall. Patient reported he was walking, slipped on ice fell face forward hitting his nose and forehead. No loss of consciousness. Complaining of mild to moderate pain in the bridge of nose and mild headache with some nausea and dizzy feeling which is improved now. No numbness tingling or focal weakness. Denies any neck pain. No injury anywhere else. Denies any visual disturbance or difficulty speech. Occurred: just prior to arrival Reason for Fall: slipped, tripped Injuries/Pain Location: head, face Loss of Consciousness: no loss of consciousness Quality: sharpness Severity of Pain-Max: moderate Severity of Pain-Current: mild Modifying Factors: Improves With: other Associated Symptoms (Fall): dizziness, headache, nausea, No abdominal pain, No back pain, No confusion, No chest pain, No extremity injury, No lightheadedness, No muscle spasms, No neck pain, No ringing in ears, No seizures, No shortness of breath, No slurred speech, No trouble walking, No vomiting, No vision changes Allergies/Adverse Reactions: No Known Drug Allergies Allergy (Verified 03/26/21 11:54) Home Medications: Levetiracetam [Keppra 500 mg ] 750 mg PO BID 03/03/17 [History] Lacosamide [Vimpat] 150 mg PO BID 03/13/17 [History] Losartan Potassium 50 mg [Cozaar 50 MG] 50 mg PO DAILY 03/13/17 [History] Fluoxetine HCl 40 mg PO DAILY 07/04/17 [History] Hydrochlorothiazide 25 mg [hydroDIURIL 25 MG] 25 mg PO DAILY 07/04/17 [History] Ropinirole HCl 1 mg PO HS 07/04/17 [History] Propranolol HCl [Propranolol HCl ER] 120 mg PO HS 08/17/17 [History] SUMAtriptan succinate [Zembrace Symtouch] 3 mg SQ UD 07/16/18 [History] Hx Tetanus, Diphtheria Vaccination/Date Given: Yes Hx Influenza Vaccination/Date Given: Yes Hx Pneumococcal Vaccination/Date Given: No Immunizations Up to Date: Yes Travel Risk - International Travel Have you traveled outside of the country in past 3 weeks: No - Coronavirus Screening Are you exhibiting any of the following symptoms?: No Close contact with a COVID-19 positive Pt in past 14-21 Days: No - Vaccine Status Have you recieved a Covid-19 vaccination: Yes 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: [employer] - Vaccination Dates Date of 2cond Vaccination (if applicable): 12/2020 - Review of Systems Constitutional: No Symptoms Eyes: No Symptoms Ears, Nose, & Throat: Nose Pain Respiratory: No Symptoms Cardiac: No Symptoms Abdominal/Gastrointestinal: No Symptoms Genitourinary Symptoms: No Symptoms Musculoskeletal: No Symptoms Skin: No Symptoms Neurological: Dizziness, Headache Psychological: No Symptoms Endocrine: No Symptoms Hematologic/Lymphatic: No Symptoms Immunological/Allergic: No Symptoms - Past Medical History Pertinent Past Medical History: Yes Neurological History: Migraines, Seizures ENT History: No Pertinent History Cardiac History: Hypertension Respiratory History: No Pertinent History Endocrine Medical History: No Pertinent History Musculoskeletal History: No Pertinent History GI Medical History: No Pertinent History History: No Pertinent History Psycho-Social History: No Pertinent History Male Reproductive Disorders: Scrotal Mass Other Medical History: cp from . - Past Surgical History Past Surgical History: Yes Neuro Surgical History: No Pertinent History Cardiac: No Pertinent History Respiratory: No Pertinent History Gastrointestinal: No Pertinent History Genitourinary: No Pertinent History Musculoskeletal: No Pertinent History, Orthopedic Surgery Male Surgical History: No Pertinent History Other Surgical History: spinal fusion, rt foot reconstructed - Social History Smoking Status: Never smoker Exposure to second hand smoke: Yes Alcohol Use: None Drug Use: none Patient Lives Alone: No Significant Family History: no pertinent family hx - Nursing Vital Signs Nursing Vital Signs: Initial Vital Signs Temperature 97.6 F 10/16/22 19:46 Pulse Rate 87 10/16/22 19:46 Respiratory Rate 18 10/16/22 19:46 Blood Pressure 151/94 10/16/22 19:46 O2 Sat by Pulse Oximetry 97 10/16/22 19:46 Pain Scale Pain Intensity 8 - [place] Coma Score Best Eye Response ([place]): (4) open spontaneously Best Verbal Response ([place]): (5) oriented Best Motor Response ([place]): (6) obeys commands [place] Total: 15 - Physical Exam General Appearance: no apparent distress, alert Head Injury: no evidence of injury Eye Exam: PERRL/EOMI, eyes nml inspection ENT Exam: airway nml, evidence of ENT injury, other (Tenderness bridge of nose. No crepitus.), No dental injury Neck Exam: supple, trachea midline, full range of motion, normal alignment, normal inspection Respiratory/Chest Exam: normal breath sounds, respiratory distress, No chest tenderness Cardiovascular Exam: normal heart sounds, regular rate/rhythm Gastrointestinal Exam: soft, No tenderness Extremity Exam: normal inspection, normal range of motion, capillary refill <3 sec Neurologic Exam: alert, 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, cooperative, clamp operator II-XII nml as tested, normal mood/affect, sensation nml, No motor deficits Skin Exam: normal color SpO2 Interpretation: normal SpO2: 98 O2 Delivery: Room Air Ordered Tests: Active Orders 24 hr Category Date Time Status CERVICAL SPINE WO CONTRAST [CT] Stat Exams 10/16/22 20:08 Completed FACIAL BONES WO CONTRAST [CT] Stat Exams 10/16/22 20:08 Completed HEAD WITHOUT CONTRAST [CT] Stat Exams 10/16/22 20:08 Completed - Progress Progress: improved Progress Note: 10/16/22 22:05 Offered pain medication which she refused. Obtain CT head cervical spine and facial bones which is negative for any acute trauma related findings. No injury anywhere else. Recommended Tylenol, frequent neurochecks and outpatient follow-up. Discussed signs symptoms of worsening needing return to ER which patient seems understanding. Counseled pt/family regarding: diagnosis, need for follow-up, rad results - Departure Departure Disposition: Home Clinical Impression: Contusion of nose, initial encounter, Fall, Concussion Condition: Stable Critical Care Time: No Referrals: DOCTOR,NO FAMILY [Primary Care Provider] - Follow up/PCP as directed Instructions: Concussion, Adult (DC), Head Injury Observation (DC) Additional Instructions: Intermittent ice application on the nose. Take Tylenol as needed. Stay with responsible person for next 24 to 48 hours with frequent neurochecks. Follow-up with primary care for reevaluation in 2 to 3 days before going back to work. Follow head injury instructions and return to ER for any worsening.
[2022-10-16 22:13] VITALS: PULSE 62
== END 2022-10-16 22:16 | disposition home or self-care (01) ==
LOC: ED 19:34
DX: S06.0X0A Concussion without loss of consciousness, initial encounter (principal); S00.33XA Contusion of nose, initial encounter; W00.0XXA Fall on same level due to ice and snow, initial encounter; Y93.01 Activity, walking, marching and hiking; R51.9 Headache, unspecified; R11.0 Nausea; I10 Essential (primary) hypertension; Z79.899 Other long term (current) drug therapy
CPT/HCPCS: 70450; 70486; 72125; 99283

== ENCOUNTER 2023-11-13 13:52 | Emergency (ER) | payer MEDICARE ==
[2023-11-13 14:01] VITALS: BP 175/103; PULSE 68; RESP 16; TEMP 97.7; O2SAT 98
--- NOTE | 2023-11-13 14:57 | ERPHSYRPT ---
- History of Present Illness Time Seen by Provider: 11/13/23 14:10 Source: patient Exam Limitations: no limitations Patient Subjective Stated Complaint: pt co pain to left ankle for 2 weeks now, no injury. Triage Nursing Assessment: pt alert, walked in with a limp, skin w/d/p. no swelling or bruising noted, tender to touch, strong pedal pulse Physician History: Patient is a 53-year-old white male who presents with a complaint of pain and swelling in the left ankle medial aspect for 2 weeks. He does not know of any specific injury he has no history of uric acid or other forms of arthritis. Method of Injury: unknown Occurred: other (2 weeks ago) Quality: aching, throbbing Severity of Pain-Max: moderate Severity of Pain-Current: moderate Lower Extremities Pain: ankle: left (Pain is located on the Lateral aspect of the ) Modifying Factors: Improves With: movement Associated Symptoms: unable to bear weight Allergies/Adverse Reactions: No Known Drug Allergies Allergy (Verified 11/13/23 13:57) Home Medications: Levetiracetam [Keppra 500 mg ] 750 mg PO BID 03/03/17 [History] Lacosamide [Vimpat] 150 mg PO BID 03/13/17 [History] Losartan Potassium 50 mg [Cozaar 50 MG] 50 mg PO DAILY 03/13/17 [History] Fluoxetine HCl 40 mg PO DAILY 07/04/17 [History] Hydrochlorothiazide 25 mg [hydroDIURIL 25 MG] 25 mg PO DAILY 07/04/17 [History] Ropinirole HCl 1 mg PO HS 07/04/17 [History] Propranolol HCl [Propranolol HCl ER] 120 mg PO HS 08/17/17 [History] SUMAtriptan succinate [Zembrace Symtouch] 3 mg SQ UD 07/16/18 [History] Hx Tetanus, Diphtheria Vaccination/Date Given: No Hx Influenza Vaccination/Date Given: Yes Hx Pneumococcal Vaccination/Date Given: No Immunizations Up to Date: Yes Travel Risk - International Travel Have you traveled outside of the country in past 3 weeks: No - Coronavirus Screening Are you exhibiting any of the following symptoms?: No Close contact with a COVID-19 positive Pt in past 14-21 Days: No - Vaccine Status Have you recieved a Covid-19 vaccination: Yes 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: [employer] - Vaccination Dates Date of 2cond Vaccination (if applicable): 12/2020 - Review of Systems Constitutional: No Fever, No Chills Eyes: No Symptoms Ears, Nose, & Throat: No Symptoms Respiratory: No Cough, No Dyspnea Cardiac: No Chest Pain, No Edema, No Syncope Abdominal/Gastrointestinal: No Abdominal Pain, No Nausea, No Vomiting, No Diarrhea Genitourinary Symptoms: No Dysuria Musculoskeletal: Joint Pain, Joint Swelling, No Back Pain, No Neck Pain Skin: No Rash Neurological: No Dizziness, No Focal Weakness, No Sensory Changes Psychological: No Symptoms Endocrine: No Symptoms All Other Systems: Reviewed and Negative - Past Medical History Pertinent Past Medical History: Yes Neurological History: Migraines, Seizures ENT History: No Pertinent History Cardiac History: Hypertension Respiratory History: No Pertinent History Endocrine Medical History: No Pertinent History Musculoskeletal History: No Pertinent History GI Medical History: No Pertinent History History: No Pertinent History Psycho-Social History: No Pertinent History Male Reproductive Disorders: Scrotal Mass Other Medical History: cp from . - Past Surgical History Past Surgical History: Yes Neuro Surgical History: No Pertinent History Cardiac: No Pertinent History Respiratory: No Pertinent History Gastrointestinal: No Pertinent History Genitourinary: No Pertinent History Musculoskeletal: No Pertinent History, Orthopedic Surgery Male Surgical History: No Pertinent History Other Surgical History: spinal fusion, rt foot reconstructed - Social History Smoking Status: Never smoker Exposure to second hand smoke: No Alcohol Use: None Drug Use: none Patient Lives Alone: No Significant Family History: no pertinent family hx - Nursing Vital Signs Nursing Vital Signs: Initial Vital Signs Temperature 97.7 F 11/13/23 13:59 Pulse Rate 68 11/13/23 13:59 Respiratory Rate 16 11/13/23 13:59 Blood Pressure 175/103 11/13/23 13:59 O2 Sat by Pulse Oximetry 98 11/13/23 13:59 Pain Scale Pain Intensity 9 - Physical Exam General Appearance: mild distress Eyes, Ears, Nose, Throat Exam: moist mucous membranes Neck Exam: non-tender, supple Cardiovascular/Respiratory Exam: chest non-tender, normal breath sounds, regular rate/rhythm, no respiratory distress Gastrointestinal/Abdominal Exam: non-tender, guarding Back Exam: normal inspection, normal range of motion, No vertebral tenderness Hips Exam: bilateral: non-tender, normal inspection, normal range of motion Legs Exam: bilateral leg: non-tender, normal inspection, normal range of motion Knees Exam: bilateral knee: non-tender, normal inspection, normal range of motion Ankle Exam: left ankle: bone tenderness, limited range of motion, pain, soft tissue tenderness, swelling Foot Exam: bilateral foot: non-tender, normal inspection, normal range of motion Neuro/Tendon Exam: normal sensation, normal motor functions Mental Status Exam: alert Skin Exam: normal color, warm, dry SpO2 Interpretation: normal SpO2: 98 O2 Delivery: Room Air - Course Nursing assessment & vital signs reviewed: Yes - Radiology Exams Left Ankle X-ray Interpretation: Interpreted by me, Negative Ordered Tests: Active Orders 24 hr Category Date Time Status ANKLE (3 VIEWS) Stat Exams 11/13/23 14:36 Taken SED RATE [Erythrocyte Sedimentation Rate] Stat Lab 11/13/23 14:25 Completed Uric Acid Stat Lab 11/13/23 14:25 Completed Lab/Rad Data: Laboratory Results 11/13/23 11/13/23 Range/Units 14:25 14:25 ESR < 1 (0-15) mm/hr Uric Acid 5.3 (3.5-7.2) mg/dL - Progress Progress: unchanged Medical Desision Making - Diagnostic Testing Radiological Interpretation: Interpreted by me - Risk of complications Low Risk: Low risk of morbidity from additional dx testing or treatment - Departure Departure Disposition: Home Clinical Impression: Ankle sprain Condition: Stable Critical Care Time: No Referrals: DEVONTE CRABTREE MD [Primary Care Provider] - Follow up/PCP as directed CIARA - LADONNA GILBERT NP [NON-STAFF PHY W/O PRIVILEGES] - Follow up/PCP as directed Instructions: Ankle Sprain ED Prescriptions: Hydrocodone/Acetaminophen [Hydrocodone-Acetamin 5-325 mg] 1 tab PO Q6HPRN PRN 3 Days #12 tablet MDD 4 PRN Reason: Pain
--- NOTE | 2023-11-13 19:06 | XRAY ---
Indication: Pain. No known injury. Comparison: None 3 view left ankle obtained. No bony, articular, or soft tissue abnormalities.
== END 2023-11-13 15:16 | disposition home or self-care (01) ==
LOC: ED 13:52
DX: S93.402A Sprain of unspecified ligament of left ankle, initial encounter (principal); I10 Essential (primary) hypertension; Z79.891 Long term (current) use of opiate analgesic; Z79.899 Other long term (current) drug therapy
CPT/HCPCS: 36415; 73610; 84550; 85652; 99283

== ENCOUNTER 2024-03-28 17:08 | Emergency (ER) | payer MEDICARE ==
[2024-03-28 17:42] VITALS: RESP 18; TEMP 97.4; O2SAT 97
[2024-03-28 18:03] VITALS: BP 139/97; PULSE 69
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
[2024-03-28] MEDS ORDERED: MORPHINE SULFATE 4 MG INJ ONE (18:24)
[2024-03-28] MEDS: MORPHINE SULFATE 4 MG INJ IM ONE (18:28)
--- NOTE | 2024-03-29 07:06 | XRAY ---
Indication: Pain and swelling following fall. Comparison: None 3 view left elbow demonstrates superficial linear radiopacities posteriorly probably foreign bodies. No other bony, articular, or soft tissue abnormalities.
== END 2024-03-28 18:38 | disposition home or self-care (01) ==
LOC: ED 17:08
DX: S52.022A Displaced fracture of olecranon process without intraarticular extension of left ulna, initial encounter for closed fracture (principal); W01.0XXA Fall on same level from slipping, tripping and stumbling without subsequent striking against object, initial encounter; Y92.838 Other recreation area as the place of occurrence of the external cause; G80.2 Spastic hemiplegic cerebral palsy; I10 Essential (primary) hypertension; Z79.899 Other long term (current) drug therapy
CPT/HCPCS: 29105; 73080; 96372; 99283; J2270

== ENCOUNTER 2024-06-09 00:18 | Emergency (ER) | payer MEDICARE ==
[2024-06-09 00:42] VITALS: TEMP 98.3
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
[2024-06-09] MEDS ORDERED: MOTRIN 600 MG ONE (01:21)
[2024-06-09] MEDS ORDERED: TYLENOL 325 MG ONE (01:21)
[2024-06-09] MEDS: TYLENOL 325 MG PO ONE (01:29)
[2024-06-09] MEDS: MOTRIN 600 MG PO ONE (01:29)
[2024-06-09 01:42] VITALS: RESP 18
--- NOTE | 2024-06-09 02:07 | XRAY ---
CLINICAL HISTORY: Head trauma COMPARISON: None. TECHNIQUE: An axial non-contrast CT scan of the brain was performed from the skull base to the high parietal region. One of the following dose reduction techniques was utilized for this exam: Automated exposure control, adjustment of the mA and/or kV according to patient size, and use of iterative reconstruction. FINDINGS: Brain Parenchyma: Hypoplastic left cerebral hemisphere. Evidence of ill-defined isodense space-occupying lesion in the anterior cranial fossa on the left side, measuring 5.8x6.3x4.8cm([id number]), causing compression of ipsilateral lateral ventricle and subfalcine herniation to the right side with a midline shift of 1.8cm. No evidence of calcifications. Normal attenuation of the rest of the cerebral hemispheres, cerebellum, and brainstem. No evidence of acute infarct, or hemorrhage. Ventricular System: The ventricular system are prominent consistent with senile changes. No evidence of hydrocephalus. Subarachnoid Spaces: Cortical sulci and basal cisterns are prominent. No evidence of subarachnoid hemorrhage or extra-axial fluid collections. Cerebellum and Brainstem: Normal size and signal. No masses, lesions, or areas of abnormal signal. Orbits: Normal appearance of the globes, optic nerves, and extraocular muscles. No evidence of orbital masses or abnormal signal. Sinuses: Clear paranasal sinuses. No evidence of sinusitis or mucosal thickening. Mastoid Air Cells: Clear mastoid air cells. No evidence of mastoiditis. Skull and Meninges: Normal skull morphology. No evidence of meningeal thickening. IMPRESSION: 1. Evidence of ill-defined isodense space-occupying lesion in the anterior cranial fossa on the left side, measuring 5.8 x 6.3 x 4.8cm(Tr x Ap x Cc), causing compression of ipsilateral left lateral ventricle and subfalcine herniation to the right side with a midline shift of 1.8cm. Contrast-enhanced MRI is recommended for further evaluation for better characterization. 2. Hypoplastic left cerebral hemisphere. 3. No acute osseous findings. [facility] ER was called at [phone] at 1:02 AM [employer], 06/09/2024 and Jaci nurse was informed about the significant medical findings for this patient Electronically Signed by: Kimberli Holcomb MD. (06/09/2024 02:03:38 EDT)
[2024-06-09 03:17] VITALS: BP 122/90; PULSE 54
[2024-06-09 03:48] VITALS: O2SAT 98
== END 2024-06-09 03:23 | disposition left against medical advice (07) ==
LOC: ED 00:18
DX: S06.9X1A Unspecified intracranial injury with loss of consciousness of 30 minutes or less, initial encounter (principal); W20.8XXA Other cause of strike by thrown, projected or falling object, initial encounter; R51.9 Headache, unspecified; R42 Dizziness and giddiness; I10 Essential (primary) hypertension; Z79.899 Other long term (current) drug therapy
CPT/HCPCS: 70450; 99283; A9270-GY

== ENCOUNTER 2024-09-02 17:53 | Emergency (ER) | payer MEDICARE ==
[2024-09-02 18:14] VITALS: PULSE 69; RESP 18; TEMP 97.5; O2SAT 96
--- NOTE | 2024-09-02 18:19 | ERPHSYRPT ---
<KARINA FLOOD - Last Filed: 09/02/24 19:45> - History of Present Illness Source: patient Exam Limitations: no limitations Patient Subjective Stated Complaint: PT HERE FOR PAIN TO RIGHT HAND AND WRIST AFTER TRIPPING AND FALLING TODAY, Triage Nursing Assessment: PT ALERT, WALKED IN, RESP EASY, SKIN W/D/P. HAS CP AND HAS DEFORMITY TO RIGHT ARM THAT IS NORMAL FOR HIM, HAS STRONG RADIAL PULSE, NAIL BEDS PINK Occurred: just prior to arrival Method of Injury: fell Quality: constant, sharpness, stabbing Severity of Pain-Max: moderate Severity of Pain-Current: moderate Extremities Pain Location: hand: right, thumb: right Modifying Factors: Improves With: immobilization. Worsens With: movement Associated Symptoms: none Hx Tetanus, Diphtheria Vaccination/Date Given: Yes Hx Influenza Vaccination/Date Given: Yes Hx Pneumococcal Vaccination/Date Given: No Immunizations Up to Date: Yes <JÚNIOR ESCOTO - Last Filed: 09/06/24 21:59> - History of Present Illness Time Seen by Provider: 09/02/24 18:19 Physician History: The patient presents with right thumb and wrist pain after a fall on concrete. Earlier today, he fell on concrete, catching himself with his thumb, which resulted in localized tenderness and pain. He is unable to make a fist with the affected thumb and can only lift it slightly. He experiences some discomfort radiating upwards from the thumb area but has no pain in the elbow or shoulder. He has not taken any medication for pain since the fall. (JÚNIOR ESCOTO) Allergies/Adverse Reactions: No Known Drug Allergies Allergy (Verified 09/02/24 18:13) Home Medications: Levetiracetam [Keppra 500 mg ] 750 mg PO BID 03/03/17 [History] Lacosamide [Vimpat] 150 mg PO BID 03/13/17 [History] Losartan Potassium 50 mg [Cozaar 50 MG] 50 mg PO DAILY 03/13/17 [History] Fluoxetine HCl 40 mg PO DAILY 07/04/17 [History] Hydrochlorothiazide 25 mg [hydroDIURIL 25 MG] 25 mg PO DAILY 07/04/17 [History] Ropinirole HCl 1 mg PO HS 09/11/17 [History] SUMAtriptan succinate [Zembrace Symtouch] 3 mg SQ UD 07/16/18 [History] Travel Risk - International Travel Have you traveled outside of the country in past 3 weeks: No - Emerging Infectious Disease Are you exhibiting symptoms associated with any current EIDs: No Symptoms: Headaches/Body Aches/ <JÚINOR ESCOTO - Last Filed: 09/06/24 21:59> - Review of Systems All Other Systems: Reviewed and Negative <JÚNIOR ESCOTO - Last Filed: 09/06/24 21:59> - Past Medical History Pertinent Past Medical History: Yes Neurological History: Migraines, Seizures ENT History: No Pertinent History Cardiac History: Hypertension Respiratory History: Other Endocrine Medical History: No Pertinent History Musculoskeletal History: Degenerative Disk Disease, Other GI Medical History: No Pertinent History History: No Pertinent History Psycho-Social History: No Pertinent History Male Reproductive Disorders: Scrotal Mass Other Medical History: SPASTIC HEMIPLEGIA RIGHT, CP - Past Surgical History Past Surgical History: Yes Neuro Surgical History: No Pertinent History Cardiac: No Pertinent History Respiratory: No Pertinent History Gastrointestinal: No Pertinent History Genitourinary: No Pertinent History Musculoskeletal: No Pertinent History, Orthopedic Surgery Male Surgical History: No Pertinent History Other Surgical History: spinal fusion, rt foot reconstructed, HEMILAMINECTOMY OR LAMINOTOMY L4 LEFT. Significant Family History: no pertinent family hx - Social History Smoking Status: Never smoker Exposure to second hand smoke: No Alcohol Use: None Drug Use: none Patient Lives Alone: No - Social Determinants of Health Will the patient participate in the screening: Yes Do you worry about a steady place to live?: No Do you have any problems with any of the following?: No known problems In the past 12 months,have you had to go without utilities?: No Transportation Issues: No Has anyone in your support network made you feel unsafe?: No Have you or anyone in your house had to go without enough: No <JÚNIOR ESCOTO - Last Filed: 09/06/24 21:59> - Physical Exam General Appearance: no apparent distress Wrist Exam: bone tenderness, limited ROM, pain, soft tissue tenderness, swelling, No ecchymosis Hand Exam: bone tenderness, limited ROM, soft tissue tenderness, swelling Neuro/Tendon Exam: normal sensation, normal motor functions, normal tendon functions Mental Status Exam: alert, 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, cooperative Skin Exam: normal color, warm, dry SpO2 Interpretation: normal SpO2: 96 O2 Delivery: Room Air <JÚNIOR ESCOTO - Last Filed: 09/06/24 21:59> - Nursing Vital Signs Nursing Vital Signs: Initial Vital Signs Temperature 97.5 F 09/02/24 18:13 Pulse Rate 69 09/02/24 18:13 Respiratory Rate 18 09/02/24 18:13 Blood Pressure 128/85 09/02/24 18:13 O2 Sat by Pulse Oximetry 96 09/02/24 18:13 Pain Scale Pain Intensity 9 - Course Nursing assessment & vital signs reviewed: Yes <JÚNIOR ESCOTO - Last Filed: 09/06/24 21:59> Ordered Tests: Medication Summary Discontinued Medications Generic Name Dose Route Start Last Admin Trade Name Monalisa PRN Reason Stop Dose Admin Ketorolac Tromethamine 30 mg 09/02/24 18:59 09/02/24 19:09 Ketorolac Tromethamine 30 Mg/Ml Inj IM 09/02/24 19:00 30 mg STAT ONE Administration Ketorolac Tromethamine Confirm 09/02/24 19:04 Ketorolac Tromethamine 30 Mg/Ml Inj Administered 09/02/24 19:05 Dose 30 mg .ROUTE .STK-MED ONE Ketorolac Tromethamine Confirm 09/02/24 19:10 Ketorolac Tromethamine 30 Mg/Ml Inj Administered 09/02/24 19:11 Dose 30 mg .ROUTE .STK-MED ONE - Progress Progress: unchanged <KARINA FLOOD - Last Filed: 09/02/24 19:45> - Progress Counseled pt/family regarding: diagnosis, need for follow-up <JÚNIOR ESCOTO - Last Filed: 09/06/24 21:59> - Progress Progress Note: Patient was turned over to me by Dr. Escoto. We are basically waiting on x-ray of his wrist. He had some tenderness in his scaphoid area in the anatomical snuffbox. I got the x-ray completed and I read it. It did not seem to have any fracture of the scaphoid or any of the other carpal bones or metacarpal bones. At this time I think were just going to put a splint on him have him rest Tylenol and Advil and use ice and follow-up with primary doctor return if symptoms worsen. 09/02/24 19:45 (KARINA FLOOD) Patient fell with FOOSH mechanism, concern for scaphoid fx, wrist XR ordered. (JÚNIOR ESCOTO) Medical Desision Making - Diagnostic Testing Diagnostic test were ordered, analyzed, and reviewed by me: Yes Radiological Interpretation: Interpreted by me, Other (X-ray showed no acute findings) - Risk of complications Minimal Risk: Minimal risk of morbidity <KARINA FLOOD - Last Filed: 09/02/24 19:45> - Departure Departure Disposition: Home Critical Care Time: No <KARINA FLOOD - Last Filed: 09/02/24 19:45> <JÚNIOR ESCOTO - Last Filed: 09/06/24 21:59> - Departure Clinical Impression: Strain of right wrist Condition: Stable Referrals: DEVONTE CRABTREE MD [Primary Care Provider] - Follow up/PCP as directed Instructions: Common Wrist Injuries ED Additional Instructions: Wear splint as needed. Rest ice and elevate. If symptoms have not improved in a week get followed up. There may need to be a CT scan done
[2024-09-02] MEDS ORDERED: TORAdol 30 mg Injection ONE ×2 (19:04→19:10)
[2024-09-02] MEDS: TORAdol 30 mg Injection IM ONE (19:09)
[2024-09-02 19:15] VITALS: BP 115/82
--- NOTE | 2024-09-02 19:43 | XRAY ---
Indication: Pain following fall. Comparison: None 3 view right hand obtained. No bony, articular, or soft tissue abnormalities.
--- NOTE | 2024-09-02 19:43 | XRAY ---
Indication: Pain following fall. Comparison: None 4 projections right wrist demonstrates radiocarpal joint space narrowing. No other bony, articular, or soft tissue abnormalities.
== END 2024-09-02 20:21 | disposition home or self-care (01) ==
LOC: ED 17:53
DX: S66.911A Strain of unspecified muscle, fascia and tendon at wrist and hand level, right hand, initial encounter (principal); W18.30XA Fall on same level, unspecified, initial encounter; M79.644 Pain in right finger(s); I10 Essential (primary) hypertension; Z79.899 Other long term (current) drug therapy
CPT/HCPCS: 29130; 73110; 73130; 96372; 99283; J1885

== ENCOUNTER 2025-02-10 06:34 | Emergency (ER) | payer MEDICARE ==
[2025-02-10 06:57] VITALS: TEMP 97.7; O2SAT 96
[2025-02-10] MEDS: LYRICA 100MG PO STA (08:14)
[2025-02-10 08:17] VITALS: BP 149/106; PULSE 54; RESP 15
[2025-02-10 08:45] LABS: ALBUMIN 4.5 g/dL (3.5-5.0); ANION GAP 12.9 MEQ/L (5-15); BILIRUBIN,TOTAL 0.4 mg/dL (0.2-1.3); Calcium 8.7 mg/dL (8.4-10.2); Creatinine 1 1.21 mg/dL (0.66-1.25); EST GLOMERULAR FILTRATION RATE 70.3 ML/MIN; MAGNESIUM 2.1 mg/dL (1.6-2.3); Potassium 3.6 mmol/L (3.5-5.1); Total Protein 7.3 g/dL (6.3-8.2)
--- NOTE | 2025-02-10 08:55 | ERPHSYRPT ---
- History of Present Illness Time Seen by Provider: 02/10/25 07:47 Source: patient Exam Limitations: no limitations Patient Subjective Stated Complaint: PT. STATES, "MY LEGS ARE JUMPIN AND PAINFUL, I HAVE RLS. I TOOK MY MEDICINE AND IT DID NOTHING, I HAVEN'T SLEPT AT ALL." Triage Nursing Assessment: PT. AMBULATED TO ROOM WITH WITH A SLIGHT LIMP, HE IS A&OX3, RESP. EVEN UNLABORED, SKIN P/W/D, Physician History: 54 years old male with history of cerebral palsy with right-sided residual weakness, restless leg syndrome, seizure disorder presented in the ER with restless legs all night. Patient reports "my legs are jumping". Pain is in both upper lateral thighs, dull aching to burning, cannot feel comfortable and lie still. Denies any fall or trauma. No swelling. No redness or rash reported. Has taken his Requip with no significant relief and could not sleep all night long. Allergies/Adverse Reactions: No Known Drug Allergies Allergy (Verified 09/02/24 18:13) Home Medications: Levetiracetam [Keppra 500 mg ] 750 mg PO BID 03/03/17 [History] Lacosamide [Vimpat] 150 mg PO BID 03/13/17 [History] Losartan Potassium 50 mg [Cozaar 50 MG] 50 mg PO DAILY 03/13/17 [History] Fluoxetine HCl 40 mg PO DAILY 07/04/17 [History] Hydrochlorothiazide 25 mg [hydroDIURIL 25 MG] 25 mg PO DAILY 07/04/17 [History] Ropinirole HCl 1 mg PO HS 07/04/17 [History] SUMAtriptan succinate [Zembrace Symtouch] 3 mg SQ UD 07/16/18 [History] Hx Tetanus, Diphtheria Vaccination/Date Given: No Hx Influenza Vaccination/Date Given: Yes Hx Pneumococcal Vaccination/Date Given: No Immunizations Up to Date: No Travel Risk - International Travel Have you traveled outside of the country in past 3 weeks: No - Emerging Infectious Disease Are you exhibiting symptoms associated with any current EIDs: No Symptoms: Headaches/Body Aches/ - Review of Systems Constitutional: No Symptoms Ears, Nose, & Throat: No Symptoms Respiratory: No Symptoms Cardiac: No Symptoms Abdominal/Gastrointestinal: No Symptoms Musculoskeletal: Myalgias Skin: No Symptoms Neurological: No Dizziness, No Headache Psychological: No Symptoms Hematologic/Lymphatic: No Symptoms - Past Medical History Pertinent Past Medical History: Yes Neurological History: Migraines, Seizures ENT History: No Pertinent History Cardiac History: Hypertension Respiratory History: Other Endocrine Medical History: No Pertinent History Musculoskeletal History: Degenerative Disk Disease, Other GI Medical History: No Pertinent History History: No Pertinent History Psycho-Social History: No Pertinent History Male Reproductive Disorders: Scrotal Mass Other Medical History: SPASTIC HEMIPLEGIA RIGHT, CP - Past Surgical History Past Surgical History: Yes Neuro Surgical History: No Pertinent History Cardiac: No Pertinent History Respiratory: No Pertinent History Gastrointestinal: No Pertinent History Genitourinary: No Pertinent History Musculoskeletal: No Pertinent History, Orthopedic Surgery Male Surgical History: No Pertinent History Other Surgical History: spinal fusion, rt foot reconstructed, HEMILAMINECTOMY OR LAMINOTOMY L4 LEFT. Significant Family History: no pertinent family hx - Social History Smoking Status: Never smoker Exposure to second hand smoke: No Drug Use: none - Social Determinants of Health Will the patient participate in the screening: Yes Do you worry about a steady place to live?: No Do you have any problems with any of the following?: No known problems In the past 12 months,have you had to go without utilities?: No Transportation Issues: No Has anyone in your support network made you feel unsafe?: No Have you or anyone in your house had to go w/o enough food: No - Nursing Vital Signs Nursing Vital Signs: Initial Vital Signs Temperature 97.7 F 02/10/25 06:34 Pulse Rate 63 02/10/25 06:34 Respiratory Rate 18 02/10/25 06:34 Blood Pressure 152/106 02/10/25 06:34 O2 Sat by Pulse Oximetry 96 02/10/25 06:34 Pain Scale Pain Intensity 8 - Physical Exam General Appearance: no apparent distress Eye Exam: PERRL/EOMI Ears, Nose, Throat Exam: normal ENT inspection Neck Exam: normal inspection, full range of motion Respiratory Exam: normal breath sounds, lungs clear Cardiovascular Exam: regular rate/rhythm, normal heart sounds Extremity Exam: tenderness (Bilateral lateral thigh muscle tenderness. Weakness on the right at his baseline.) Neurologic Exam: alert, 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, cooperative, sensation nml, No motor deficits (No new motor deficit) Skin Exam: normal color SpO2 Interpretation: normal SpO2: 96 O2 Delivery: Room Air Ordered Tests: Active Orders 24 hr Category Date Time Status CMP Stat Lab 02/10/25 08:28 Completed MAG [MAGNESIUM] Stat Lab 02/10/25 08:28 Completed Medication Summary Discontinued Medications Generic Name Dose Route Start Last Admin Trade Name Monalisa PRN Reason Stop Dose Admin Pregabalin 100 mg 02/10/25 07:47 02/10/25 08:14 Pregabalin 100 Mg Capsule PO 02/10/25 07:48 100 mg ONCE STA Administration Lab/Rad Data: Laboratory Result Diagrams 02/10/25 08:28 Laboratory Results 02/10/25 Range/Units 08:28 Sodium 140 (135-145) mmol/L Potassium 3.6 (3.5-5.1) mmol/L Chloride 105 (98-107) mmol/L Carbon Dioxide 25 (22-30) mmol/L Anion Gap 12.9 (5-15) MEQ/L BUN 23 H (9-20) mg/dL Creatinine 1.21 (0.66-1.25) mg/dL Estimated GFR 70.3 ML/MIN Glucose 97 (74-106) mg/dL Calcium 8.7 (8.4-10.2) mg/dL Magnesium 2.1 (1.6-2.3) mg/dL Total Bilirubin 0.40 (0.2-1.3) mg/dL AST 31 (17-59) U/L ALT 40 (0-50) U/L Alkaline Phosphatase 72 (38-126) U/L Serum Total Protein 7.3 (6.3-8.2) g/dL Albumin 4.5 (3.5-5.0) g/dL - Progress Progress: improved Progress Note: 02/10/25 08:52 54 years old with history of restless leg syndrome, seizure, cerebral palsy is evaluated in the ER for bilateral thigh pain and restless legs. Patient has minimal generalized tenderness in the both lower extremities without swelling or signs of cellulitis. Has no new weakness but what he has at baseline on the right side. He is given Lyrica, on reevaluation his symptoms are resolved. I have obtained electrolytes with normal potassium and magnesium. Recommended continue with Requip and outpatient follow-up. No signs of cellulitis, bony tenderness or concern for DVT. Discussed signs symptoms of worsening needing return to ER which she seems understanding. Stable for discharge. Complexity of problem addressed: Moderate acute Complexity of data reviewed/analyzed: Moderate Risk of complication: Low risk Counseled pt/family regarding: lab results, diagnosis, need for follow-up Medical Desision Making - Independent Historian Additional History obtained from: Spouse - Diagnostic Testing Diagnostic test were ordered, analyzed, and reviewed by me: Yes - Risk of complications The pt has a mod risk of morbidity or mortality based on: Need for prescription drug management - Departure Departure Disposition: Home Clinical Impression: Restless leg syndrome Condition: Stable Critical Care Time: No Referrals: DEVONTE CRABTREE MD [Primary Care Provider, [facility]] - Follow up with PCP 1 day Instructions: Restless legs syndrome Additional Instructions: Continue with your current medications. Take Tylenol as needed. Follow-up with primary care for reevaluation. Return to ER for any worsening of pain, swelling, numbness weakness etc.
[2025-02-10] MEDS: LYRICA 75 MG CAP PO STA (08:58)
[2025-02-10] MEDS: LYRICA 100MG PO SCH (09:01)
== END 2025-02-10 09:06 | disposition home or self-care (01) ==
LOC: ED 06:34
DX: G25.81 Restless legs syndrome (principal); I10 Essential (primary) hypertension; Z79.899 Other long term (current) drug therapy
CPT/HCPCS: 36415; 80053; 83735; 99283; A9270-GY

== ENCOUNTER 2025-02-11 05:52 | Emergency (ER) | payer MEDICARE ==
[2025-02-11 05:59] VITALS: TEMP 98.5
--- NOTE | 2025-02-11 06:42 | ERPHSYRPT ---
- History of Present Illness Source: patient, family, EMS Exam Limitations: no limitations Patient Subjective Stated Complaint: ems called to pt's house per for him "talking out of his head and walked into the bedroom and flopped on the bed" Triage Nursing Assessment: Pt brought in by ems. Pt is alert and oriented x4 at this time. Pt's spouse states that he got up and took his meds at 5am and then came into the bedroom and flopped onto the bed crossways onto his saying "help me, help me" and his arms and legs were flailing around. Pt then rolled off of the bed onto the floor. Pt c/o left shoulder pain at this time. is wondering if this behavior could be warranted by the new medication he was given from this ER yesterday--he was sent home with Lyrica 100mg po and pt informed me that he took it at midnight. Hx Tetanus, Diphtheria Vaccination/Date Given: Yes Hx Influenza Vaccination/Date Given: Yes Hx Pneumococcal Vaccination/Date Given: No <CHRIS AJRQUIN - Last Filed: 02/11/25 06:36> <CHYNA LOPEZ - Last Filed: 02/11/25 09:17> - History of Present Illness Time Seen by Provider: 02/11/25 06:29 Physician History: 54 years old male with history of restless leg syndrome, cerebral palsy, seizure disorder presented in the ER with complaints of altered mental status per . Patient was seen yesterday in this ER and was given Lyrica 100 mg x 1 to go home which she took around midnight and around 5 AM he walked into her room, flopping on the bed saying help me, help me. reports he was talking out of his head earlier. Patient is back to his baseline now. He denies any headache, numbness tingling or focal weakness but what he has at his baseline on the right side. Patient denies any chest pain palpitations or shortness of breath. (CHRIS JARQUIN) Allergies/Adverse Reactions: No Known Drug Allergies Allergy (Verified 02/11/25 05:57) Home Medications: Levetiracetam [Keppra 500 mg ] 750 mg PO BID 03/03/17 [History] Lacosamide [Vimpat] 150 mg PO BID 03/13/17 [History] Losartan Potassium 50 mg [Cozaar 50 MG] 50 mg PO DAILY 03/13/17 [History] Fluoxetine HCl 40 mg PO DAILY 07/04/17 [History] Hydrochlorothiazide 25 mg [hydroDIURIL 25 MG] 25 mg PO DAILY 07/04/17 [History] Ropinirole HCl 1 mg PO HS 07/04/17 [History] SUMAtriptan succinate [Zembrace Symtouch] 3 mg SQ UD 07/16/18 [History] Travel Risk - International Travel Have you traveled outside of the country in past 3 weeks: No - Emerging Infectious Disease Are you exhibiting symptoms associated with any current EIDs: No Symptoms: Headaches/Body Aches/ <CHRIS JARQUIN - Last Filed: 02/11/25 06:36> - Review of Systems Constitutional: Fatigue Eyes: No Symptoms Ears, Nose, & Throat: No Symptoms Respiratory: No Symptoms Cardiac: No Symptoms Abdominal/Gastrointestinal: No Symptoms Genitourinary Symptoms: No Symptoms Musculoskeletal: Arthralgias Skin: No Symptoms Neurological: No Gait Changes Endocrine: No Symptoms Hematologic/Lymphatic: No Symptoms Immunological/Allergic: No Symptoms <CHRIS JARQUIN - Last Filed: 02/11/25 06:36> - Past Medical History Pertinent Past Medical History: Yes Neurological History: Migraines, Seizures ENT History: No Pertinent History Cardiac History: Hypertension Respiratory History: Other Endocrine Medical History: No Pertinent History Musculoskeletal History: Degenerative Disk Disease, Other GI Medical History: No Pertinent History History: No Pertinent History Psycho-Social History: No Pertinent History Male Reproductive Disorders: Scrotal Mass Other Medical History: SPASTIC HEMIPLEGIA RIGHT, CP - Past Surgical History Past Surgical History: Yes Neuro Surgical History: No Pertinent History Cardiac: No Pertinent History Respiratory: No Pertinent History Gastrointestinal: No Pertinent History Genitourinary: No Pertinent History Musculoskeletal: No Pertinent History, Orthopedic Surgery Male Surgical History: No Pertinent History Other Surgical History: spinal fusion, rt foot reconstructed, HEMILAMINECTOMY OR LAMINOTOMY L4 LEFT. Significant Family History: no pertinent family hx - Social History Smoking Status: Never smoker Exposure to second hand smoke: No Drug Use: none - Social Determinants of Health Will the patient participate in the screening: Yes Do you worry about a steady place to live?: No Do you have any problems with any of the following?: No known problems In the past 12 months,have you had to go without utilities?: No Transportation Issues: No Has anyone in your support network made you feel unsafe?: No Have you or anyone in your house had to go w/o enough food: No <CHRIS JARQUIN - Last Filed: 02/11/25 06:36> - Physical Exam General Appearance: no apparent distress, alert Eye Exam: PERRL/EOMI Ears, Nose, Throat Exam: normal ENT inspection Neck Exam: normal inspection, non-tender, supple, full range of motion Respiratory Exam: normal breath sounds, lungs clear Cardiovascular Exam: regular rate/rhythm, normal heart sounds Gastrointestinal/Abdomen Exam: soft, normal bowel sounds, No tenderness Back Exam: normal inspection Extremity Exam: normal inspection, normal range of motion Neurologic Exam: alert, 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, cooperative, carpenter rough II-XII nml as tested, normal mood/affect, motor deficits (Chronic on the right side), No nml cerebellar function Skin Exam: normal color SpO2 Interpretation: normal SpO2: 94 O2 Delivery: Room Air <CHRIS JARQUIN - Last Filed: 02/11/25 06:36> - Nursing Vital Signs Nursing Vital Signs: Initial Vital Signs Temperature 98.5 F 02/11/25 05:53 Pulse Rate 68 02/11/25 05:53 Respiratory Rate 16 02/11/25 05:53 Blood Pressure 131/99 02/11/25 05:53 O2 Sat by Pulse Oximetry 95 02/11/25 05:53 Pain Scale Pain Intensity 0 Ordered Tests: Active Orders 24 hr Category Date Time Status IV Insertion STAT Care 02/11/25 06:34 Active NPO (ED) STAT Care 02/11/25 06:35 Active HEAD WITHOUT CONTRAST [CT] Stat Exams 02/11/25 06:35 Completed SHOULDER Stat Exams 02/11/25 06:37 Completed CBC W DIFF Stat Lab 02/11/25 06:47 Completed CMP Stat Lab 02/11/25 06:47 Completed Lactic Acid Stat Lab 02/11/25 06:55 Completed MAGNESIUM Stat Lab 02/11/25 06:47 Completed TROPONIN Q3H Lab 02/11/25 06:47 Completed TROPONIN Q3H Lab 02/11/25 09:45 Ordered TROPONIN Q3H Lab 02/11/25 12:45 Ordered TROPONIN Q3H Lab 02/11/25 15:45 Ordered UA W/RFX UR CULTURE Stat Lab 02/11/25 08:15 Completed Medication Summary Discontinued Medications Generic Name Dose Route Start Last Admin Trade Name Johnq PRN Reason Stop Dose Admin Sodium Chloride 500 mls @ 500 mls/hr 02/11/25 08:13 02/11/25 08:23 Sodium Chloride 0.9% 500 Ml IV 02/11/25 09:12 500 mls/hr .Q1H ONE Administration Sodium Chloride Confirm 02/11/25 08:22 Sodium Chloride 0.9% 500 Ml Administered 02/11/25 08:23 Dose 500 mls @ ud IV .STK-MED ONE Potassium Chloride 10 meq 02/11/25 08:02 02/11/25 08:08 Potassium Chloride Tab 10 Meq Tab PO 02/11/25 08:03 10 meq STAT ONE Administration Potassium Chloride Confirm 02/11/25 08:08 Potassium Chloride Tab 10 Meq Tab Administered 02/11/25 08:09 Dose 10 meq .ROUTE .STK-MED ONE Lab/Rad Data: Laboratory Result Diagrams 02/11/25 06:47 02/11/25 06:47 Laboratory Results 02/11/25 02/11/25 02/11/25 Range/Units 08:15 06:55 06:47 WBC (4.23-9.07) x10^3/uL RBC (4.63-6.08) x10^6/uL Hgb (13.7-17.5) g/dL Hct (40.1-51.0) % MCV (79.0-92.2) fL MCH (25.7-32.2) pg MCHC (32.3-36.5) g/dL RDW (11.6-14.4) % Plt Count (163-337) x10^3/uL MPV (9.4-12.4) fL Gran % (34.0-67.9) % Immature Gran % (Auto) (0.001-0.429) % Nucleat RBC Rel Count (0.00-0.2) % Eos # (Auto) (0.04-0.54) x10^3/uL Immature Gran # (Auto) (0.001-0.031) x10^3u/L Absolute Lymphs (auto) (1.32-3.57) x10^3/uL Absolute Monos (auto) (0.30-0.82) x10^3/uL Absolute Nucleated RBC (0.00-0.012) x10^3u/L Lymphocytes % (21.8-53.1) % Monocytes % (5.3-12.2) % Eosinophils % (0.8-7.0) % Basophils % (0.2-1.2) % Absolute Granulocytes (1.78-5.38) x10^3/uL Basophils # (0.01-0.08) x10^3/uL Sodium (135-145) mmol/L Potassium (3.5-5.1) mmol/L Chloride (98-107) mmol/L Carbon Dioxide (22-30) mmol/L Anion Gap (5-15) MEQ/L BUN (9-20) mg/dL Creatinine (0.66-1.25) mg/dL Estimated GFR ML/MIN Glucose (74-106) mg/dL Lactic Acid 1.7 (0.4-2.0) Calcium (8.4-10.2) mg/dL Magnesium (1.6-2.3) mg/dL Total Bilirubin (0.2-1.3) mg/dL AST (17-59) U/L ALT (0-50) U/L Alkaline Phosphatase (38-126) U/L Troponin I < 0.012 (0.000-0.033) ng/mL Serum Total Protein (6.3-8.2) g/dL Albumin (3.5-5.0) g/dL Urine Color Yellow (Yellow) Urine Appearance Clear (Clear) Urine pH 6.0 (4.6-8.0) Ur Specific [place] 1.025 (1.005-1.030) Urine Protein Negative (Negative) Urine Glucose (UA) Negative (Negative) mg/dL Urine Ketones Trace A (Negative) Urine Blood Negative (Negative) Urine Nitrite Negative (Negative) Urine Bilirubin Negative (Negative) Urine Urobilinogen 1.0 A (0.2) mg/dL Ur Leukocyte Esterase Negative (Negative) U Hyaline Cast (Auto) NONE SEEN (0-2) /LPF Urine Microscopic RBC 0-2 (0-5) /HPF Urine Microscopic WBC 0-2 (0-5) /HPF Ur Epithelial Cells None Seen (None Seen) /HPF Urine Bacteria None Seen (None Seen) /HPF Urine Culture Reflexed NO (NO) 02/11/25 02/11/25 Range/Units 06:47 06:47 WBC 6.4 (4.23-9.07) x10^3/uL RBC 4.20 L (4.63-6.08) x10^6/uL Hgb 13.0 L (13.7-17.5) g/dL Hct 37.9 L (40.1-51.0) % MCV 90.2 (79.0-92.2) fL MCH 31.0 (25.7-32.2) pg MCHC 34.3 (32.3-36.5) g/dL RDW 12.0 (11.6-14.4) % Plt Count 164 (163-337) x10^3/uL MPV 9.9 (9.4-12.4) fL Gran % 51.4 (34.0-67.9) % Immature Gran % (Auto) 0.3 (0.001-0.429) % Nucleat RBC Rel Count 0.0 (0.00-0.2) % Eos # (Auto) 0.19 (0.04-0.54) x10^3/uL Immature Gran # (Auto) 0.02 (0.001-0.031) x10^3u/L Absolute Lymphs (auto) 2.27 (1.32-3.57) x10^3/uL Absolute Monos (auto) 0.59 (0.30-0.82) x10^3/uL Absolute Nucleated RBC 0.00 (0.00-0.012) x10^3u/L Lymphocytes % 35.5 (21.8-53.1) % Monocytes % 9.2 (5.3-12.2) % Eosinophils % 3.0 (0.8-7.0) % Basophils % 0.6 (0.2-1.2) % Absolute Granulocytes 3.29 (1.78-5.38) x10^3/uL Basophils # 0.04 (0.01-0.08) x10^3/uL Sodium 141 (135-145) mmol/L Potassium 3.3 L (3.5-5.1) mmol/L Chloride 107 (98-107) mmol/L Carbon Dioxide 23 (22-30) mmol/L Anion Gap 14.9 (5-15) MEQ/L BUN 24 H (9-20) mg/dL Creatinine 1.33 H (0.66-1.25) mg/dL Estimated GFR 62.7 ML/MIN Glucose 137 H (74-106) mg/dL Lactic Acid (0.4-2.0) Calcium 8.7 (8.4-10.2) mg/dL Magnesium 2.1 (1.6-2.3) mg/dL Total Bilirubin 0.30 (0.2-1.3) mg/dL AST 26 (17-59) U/L ALT 34 (0-50) U/L Alkaline Phosphatase 70 (38-126) U/L Troponin I (0.000-0.033) ng/mL Serum Total Protein 6.4 (6.3-8.2) g/dL Albumin 4.0 (3.5-5.0) g/dL Urine Color (Yellow) Urine Appearance (Clear) Urine pH (4.6-8.0) Ur Specific [place] (1.005-1.030) Urine Protein (Negative) Urine Glucose (UA) (Negative) mg/dL Urine Ketones (Negative) Urine Blood (Negative) Urine Nitrite (Negative) Urine Bilirubin (Negative) Urine Urobilinogen (0.2) mg/dL Ur Leukocyte Esterase (Negative) U Hyaline Cast (Auto) (0-2) /LPF Urine Microscopic RBC (0-5) /HPF Urine Microscopic WBC (0-5) /HPF Ur Epithelial Cells (None Seen) /HPF Urine Bacteria (None Seen) /HPF Urine Culture Reflexed (NO) <CHRIS JARQUIN - Last Filed: 02/11/25 06:36> - Progress Progress: improved, re-examined Counseled pt/family regarding: lab results, diagnosis, need for follow-up, rad results <CHYNA LOPEZ - Last Filed: 02/11/25 09:17> - Progress Progress Note: 02/11/25 06:58 54 years old is evaluated in the ER for altered mental status/not acting himself around 5 AM. Patient has history of seizures, restless leg and cerebral palsy with right- sided residual weakness. Patient was seen in this ER yesterday morning for restless leg and was given 1 dose of Lyrica to go home which she took around midnight. Patient's symptoms could be secondary to Lyrica, will do CT head to make sure patient does not have any other acute findings along with baseline lab work. Care is transferred to Dr. Lopez at end of my shift for reevaluation and final disposition (CHRIS JARQUIN) 02/11/25 09:15 I interpreted the patient's laboratory data results. Based on the laboratory data results, there are no acute, emergent medical issues. The x-ray of the shoulder was interpreted by the radiologist and I reviewed the impression. The impression states no acute fracture or dislocation present. The CT scan of the head without contrast was interpreted by the radiologist and I reviewed the impression. 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 There are minimal degenerative microischemic changes. There are no new, acute 02/11/25 09:17 I reviewed the evaluated the patient. The patient is now awake alert and oriented and walking around. (CHYNA LOPEZ) Medical Desision Making - Independent Historian Additional History obtained from: Spouse - Diagnostic Testing Diagnostic test were ordered, analyzed, and reviewed by me: Yes Radiological Interpretation: Reviewed by me, Teleradiologist Report - Risk of complications Low Risk: Low risk of morbidity from additional dx testing or treatment <CYHNA LOPEZ - Last Filed: 02/11/25 09:17> <CHRIS JARQUIN - Last Filed: 02/11/25 06:36> - Departure Departure Disposition: Home Critical Care Time: No <CHYNA LOPEZ - Last Filed: 02/11/25 09:17> - Departure Clinical Impression: Medication side effects Condition: Stable Referrals: DEVONTE CRABTREE MD [Primary Care Provider, [facility]] - Follow up/PCP as directed Additional Instructions: Stop the Lyrica. Call your prescribing provider today, 02/11/2025, to make arrangements for follow-up appointment for further evaluation and management.
[2025-02-11 07:03] LABS: Absolute Neutrophil Ct (ANC) 3.29 x10^3/uL (1.78-5.38); BASOPHIL % 0.6 % (0.2-1.2); Basophil (Absolute #) 0.04 x10^3/uL (0.01-0.08); Eosinophil (Absolute #) 0.19 x10^3/uL (0.04-0.54); Hematocrit 37.9 % (40.1-51.0); IMMATURE GRAN # 0.02 x10^3u/L (0.001-0.031); IMMATURE GRAN % 0.3 % (0.001-0.429); Lymphocyte (Absolute #) 2.27 x10^3/uL (1.32-3.57); Lymphocytes % 35.5 % (21.8-53.1); Mean Cell Volume 90.2 fL (79.0-92.2); Mean Corpuscular Hgb Concent. 34.3 g/dL (32.3-36.5); Mean Platelet Volume 9.9 fL (9.4-12.4); Monocyte (Absolute #) 0.59 x10^3/uL (0.30-0.82); Monocytes % 9.2 % (5.3-12.2); Neutrophil % 51.4 % (34.0-67.9); Platelet Count 164 x10^3/uL (163-337); White Blood Count 6.4 x10^3/uL (4.23-9.07)
[2025-02-11 07:26] LABS: ANION GAP 14.9 MEQ/L (5-15); BILIRUBIN,TOTAL 0.3 mg/dL (0.2-1.3); Calcium 8.7 mg/dL (8.4-10.2); Creatinine 1 1.33 mg/dL (0.66-1.25); EST GLOMERULAR FILTRATION RATE 62.7 ML/MIN; MAGNESIUM 2.1 mg/dL (1.6-2.3); Potassium 3.3 mmol/L (3.5-5.1); Total Protein 6.4 g/dL (6.3-8.2)
[2025-02-11] MEDS: Klor Con PO ONE (08:08)
[2025-02-11] MEDS ORDERED: Klor Con ONE (08:08)
[2025-02-11] MEDS ORDERED: Sodium Chloride 0.9% 500 ML 500 ML IV ONE (08:22)
[2025-02-11] MEDS: Sodium Chloride 0.9% 500 ML 500 ML IV ONE (08:23)
[2025-02-11 08:37] LABS: Appearance Clear (Clear); Bacteria None Seen /HPF (None Seen); Bilirubin Negative (Negative); Blood Negative (Negative); Epithelial Cells None Seen /HPF (None Seen); Glucose, Urine Negative (Negative); Hyaline Casts NONE SEEN /LPF (0-2); Ketones Trace (Negative); Leukocyte Esterase Negative (Negative); Nitrite Negative (Negative); Protein,Urine Dip Negative (Negative); RBC 0-2 /HPF (0-5); Specific Gravity 1.025 (1.005-1.030); WBC 0-2 /HPF (0-5)
--- NOTE | 2025-02-11 09:06 | XRAY ---
Indication: Pain. Comparison: March 26, 2021 3 view left shoulder again demonstrates mild AC degenerative arthropathy with tiny inferior spurring. No new/acute bony, articular, or soft tissue abnormalities.
--- NOTE | 2025-02-11 09:07 | XRAY ---
Indication: Altered mental status. Multiple contiguous axial images obtained through the head without contrast. Comparison: Multiple priors dating back to April 15, 2019 Grossly stable congenital brain malformation including cerebral/ventricular asymmetry, corpus callosal agenesis/hypoplasia, anterior subfalcine midline shift, and minimal periventricular degenerative micro-ischemia. No acute intracranial hemorrhage, abnormal extra-axial fluid collection, or mass effect. Fourth ventricle is midline. Bony calvarium intact. Visualized paranasal sinuses and mastoid air cells are clear. Impression: Grossly stable congenital brain malformation as detailed and minimal degenerative micro-ischemia. No new/acute intracranial abnormalities.
[2025-02-11 09:27] VITALS: BP 131/89; PULSE 55; RESP 17; O2SAT 95
== END 2025-02-11 09:31 | disposition home or self-care (01) ==
LOC: ED 05:52
DX: R41.82 Altered mental status, unspecified (principal); T42.6X5A Adverse effect of other antiepileptic and sedative-hypnotic drugs, initial encounter; M25.512 Pain in left shoulder; I10 Essential (primary) hypertension; Z79.899 Other long term (current) drug therapy
CPT/HCPCS: 36415; 70450; 73030; 80053; 81001; 83605; 83735; 84484; 85025; 96360; 99284; 99285; A9270-GY

== ENCOUNTER 2025-05-14 13:19 | Emergency (ER) | payer MEDICARE ==
[2025-05-14 13:25] VITALS: TEMP 98.2
[2025-05-14] MEDS ORDERED: TORAdol 30 mg Injection ONE (13:50)
[2025-05-14] MEDS: TORAdol 30 mg Injection IV ONE (13:51)
[2025-05-14 13:58] LABS: BASOPHIL % 0.6 % (0.2-1.2); Basophil (Absolute #) 0.03 x10^3/uL (0.01-0.08); Eosinophil (Absolute #) 0.09 x10^3/uL (0.04-0.54); Hematocrit 41.4 % (40.1-51.0); Hemoglobin 14.6 g/dL (13.7-17.5); IMMATURE GRAN # 0.01 x10^3u/L (0.001-0.031); IMMATURE GRAN % 0.2 % (0.001-0.429); Lymphocyte (Absolute #) 1.89 x10^3/uL (1.32-3.57); Mean Corpuscular Hemoglobin 32.1 pg (25.7-32.2); Mean Corpuscular Hgb Concent. 35.3 g/dL (32.3-36.5); Monocyte (Absolute #) 0.36 x10^3/uL (0.30-0.82); NUCLEATED RBC # 0.00 x10^3u/L (0.00-0.012); NUCLEATED RBC % 0.0 % (0.00-0.2); Platelet Count 195 x10^3/uL (163-337); Red Blood Count 4.55 x10^6/uL (4.63-6.08); White Blood Count 5.0 x10^3/uL (4.23-9.07)
--- NOTE | 2025-05-14 14:05 | ERPHSYRPT ---
- History of Present Illness Historian: patient Exam Limitations: no limitations Patient Subjective Stated Complaint: pt c/o of left sided chest pain Triage Nursing Assessment: Pt brought to the ER by his , vitals wnl, rates pain as 9.5/10, pulses normal, skin n/w/d, pt reports vomiting once, no difficulty breathing, left sided chest pain that radiates to his left arm, doesn't appear to be in any distress Physician History: Patient has chest pain. It woke him up around 7 in the morning. He was asleep. He noticed a sharp pain that woke him up. Deep breaths make it worse. He does not have any known cardiovascular disease. The pain is described as sharp. It is in his left lung. He is not had any pneumonia type symptoms. Exertion does not make the symptoms worse but breathing does. He has no nausea or vomiting or fever or chills. He rates the pain at a 9 out of 10. Timing/Duration: today Activities at Onset: none Associated Symptoms: denies symptoms Nitro Today/Relief: no nitro taken today Aspirin Treatment Today: no aspirin today Allergies/Adverse Reactions: No Known Drug Allergies Allergy (Verified 05/14/25 13:25) Home Medications: Levetiracetam [Keppra] 1,000 mg PO BID 03/03/17 [History] Lacosamide [Vimpat] 200 mg PO BID 03/13/17 [History] Ropinirole HCl 1 mg PO HS 07/04/17 [History] Fenofibrate 54 mg PO DAILY 03/21/25 [History] Losartan/Hydrochlorothiazide [Losartan-Hctz 100-25 mg Tab] 1 each PO DAILY 03/21/25 [History] Meloxicam 7.5 mg PO DAILY 03/21/25 [History] Propranolol HCl [Propranolol HCl ER] 120 mg PO DAILY 03/21/25 [History] Sertraline HCl 50 mg [Zoloft 50 mg Tablet] 50 mg PO DAILY 03/21/25 [History] Hx Tetanus, Diphtheria Vaccination/Date Given: Yes Hx Influenza Vaccination/Date Given: Yes Hx Pneumococcal Vaccination/Date Given: No Travel Risk - International Travel Have you traveled outside of the country in past 3 weeks: No - Emerging Infectious Disease Are you exhibiting symptoms associated with any current EIDs: No Symptoms: Headaches/Body Aches/ - Review of Systems Constitutional: No Symptoms Eyes: No Symptoms Ears, Nose, & Throat: No Symptoms Respiratory: No Symptoms Cardiac: No Symptoms Abdominal/Gastrointestinal: No Symptoms Genitourinary Symptoms: No Symptoms Skin: No Symptoms Neurological: No Symptoms Psychological: No Symptoms All Other Systems: Reviewed and Negative - Past Medical History Pertinent Past Medical History: Yes Neurological History: Migraines, Seizures ENT History: No Pertinent History Cardiac History: Hypertension Respiratory History: Other Endocrine Medical History: No Pertinent History Musculoskeletal History: Degenerative Disk Disease, Other GI Medical History: No Pertinent History History: No Pertinent History Psycho-Social History: No Pertinent History Male Reproductive Disorders: Scrotal Mass Other Medical History: SPASTIC HEMIPLEGIA RIGHT, CP - Past Surgical History Past Surgical History: Yes Neuro Surgical History: No Pertinent History Cardiac: No Pertinent History Respiratory: No Pertinent History Gastrointestinal: No Pertinent History Genitourinary: No Pertinent History Musculoskeletal: No Pertinent History, Orthopedic Surgery Male Surgical History: No Pertinent History Other Surgical History: spinal fusion, rt foot reconstructed, HEMILAMINECTOMY OR LAMINOTOMY L4 LEFT. Significant Family History: no pertinent family hx - Social History Smoking Status: Never smoker Exposure to second hand smoke: No Drug Use: none - Social Determinants of Health Will the patient participate in the screening: Yes Do you worry about a steady place to live?: No Do you have any problems with any of the following?: No known problems In the past 12 months,have you had to go without utilities?: No Transportation Issues: No Has anyone in your support network made you feel unsafe?: No Have you or anyone in your house had to go w/o enough food: No - Nursing Vital Signs Nursing Vital Signs: Initial Vital Signs Pulse Rate 64 07//25 13:20 Pain Scale Pain Intensity 6 - Physical Exam General Appearance: no apparent distress Eye Exam: PERRL/EOMI Ears, Nose, Throat Exam: normal ENT inspection Neck Exam: normal inspection Respiratory Exam: normal breath sounds, lungs clear, No chest tenderness, No respiratory distress Cardiovascular Exam: regular rate/rhythm, normal heart sounds Gastrointestinal/Abdomen Exam: soft Back Exam: normal inspection, normal range of motion, CVA tenderness Extremity Exam: normal inspection, normal range of motion, pelvis stable Neurologic Exam: alert, 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 Skin Exam: normal color, warm, dry SpO2: 97 - Course Nursing assessment & vital signs reviewed: Yes Ordered Tests: Active Orders 24 hr Category Date Time Status EKG-ER Only STAT Care 05/14/25 13:47 Active CHEST 1 VIEW (PORTABLE) Stat Exams 05/14/25 13:47 Completed CBC W DIFF Stat Lab 05/14/25 13:47 Completed CMP Stat Lab 05/14/25 13:47 Completed D-DIMER QUANTITATIVE Stat Lab 05/14/25 13:47 Completed TROPONIN Q4H Lab 05/14/25 14:00 Completed TROPONIN Q4H Lab 05/14/25 18:00 Ordered TROPONIN Q4H Lab 05/14/25 22:00 Ordered Medication Summary Discontinued Medications Generic Name Dose Route Start Last Admin Trade Name Johnq PRN Reason Stop Dose Admin Ketorolac Tromethamine 15 mg 05/14/25 13:48 05/14/25 13:51 Ketorolac Tromethamine 30 Mg/Ml Inj IV 05/14/25 13:49 15 mg STAT ONE Administration Ketorolac Tromethamine Confirm 05/14/25 13:50 Ketorolac Tromethamine 30 Mg/Ml Inj Administered 05/14/25 13:51 Dose 30 mg .ROUTE .[employer]-MED ONE Lab/Rad Data: Laboratory Result Diagrams 05/14/25 13:47 05/14/25 13:47 Laboratory Results 05/14/25 05/14/25 05/14/25 Range/Units 14:00 13:47 13:47 WBC (4.23-9.07) x10^3/uL RBC (4.63-6.08) x10^6/uL Hgb (13.7-17.5) g/dL Hct (40.1-51.0) % MCV (79.0-92.2) fL MCH (25.7-32.2) pg MCHC (32.3-36.5) g/dL RDW (11.6-14.4) % Plt Count (163-337) x10^3/uL MPV (9.4-12.4) fL Gran % (34.0-67.9) % Immature Gran % (Auto) (0.001-0.429) % Nucleat RBC Rel Count (0.00-0.2) % Eos # (Auto) (0.04-0.54) x10^3/uL Immature Gran # (Auto) (0.001-0.031) x10^3u/L Absolute Lymphs (auto) (1.32-3.57) x10^3/uL Absolute Monos (auto) (0.30-0.82) x10^3/uL Absolute Nucleated RBC (0.00-0.012) x10^3u/L Lymphocytes % (21.8-53.1) % Monocytes % (5.3-12.2) % Eosinophils % (0.8-7.0) % Basophils % (0.2-1.2) % Absolute Granulocytes (1.78-5.38) x10^3/uL Basophils # (0.01-0.08) x10^3/uL D-Dimer 0.30 (0.0-0.50) mg/L Sodium 139 (135-145) mmol/L Potassium 3.9 (3.5-5.1) mmol/L Chloride 107 (98-107) mmol/L Carbon Dioxide 22 (22-30) mmol/L Anion Gap 14.2 (5-15) MEQ/L BUN 24 H (9-20) mg/dL Creatinine 1.07 (0.66-1.25) mg/dL Estimated GFR 81.4 ML/MIN Glucose 103 (74-106) mg/dL Calcium 9.3 (8.4-10.2) mg/dL Total Bilirubin 0.50 (0.2-1.3) mg/dL AST 37 (17-59) U/L ALT 32 (0-50) U/L Alkaline Phosphatase 51 (38-126) U/L Troponin I < 0.012 (0.000-0.033) ng/mL Serum Total Protein 7.6 (6.3-8.2) g/dL Albumin 4.3 (3.5-5.0) g/dL 05/14/25 Range/Units 13:47 WBC 5.0 (4.23-9.07) x10^3/uL RBC 4.55 L (4.63-6.08) x10^6/uL Hgb 14.6 (13.7-17.5) g/dL Hct 41.4 (40.1-51.0) % MCV 91.0 (79.0-92.2) fL MCH 32.1 (25.7-32.2) pg MCHC 35.3 (32.3-36.5) g/dL RDW 11.8 (11.6-14.4) % Plt Count 195 (163-337) x10^3/uL MPV 10.6 (9.4-12.4) fL Gran % 52.6 (34.0-67.9) % Immature Gran % (Auto) 0.2 (0.001-0.429) % Nucleat RBC Rel Count 0.0 (0.00-0.2) % Eos # (Auto) 0.09 (0.04-0.54) x10^3/uL Immature Gran # (Auto) 0.01 (0.001-0.031) x10^3u/L Absolute Lymphs (auto) 1.89 (1.32-3.57) x10^3/uL Absolute Monos (auto) 0.36 (0.30-0.82) x10^3/uL Absolute Nucleated RBC 0.00 (0.00-0.012) x10^3u/L Lymphocytes % 37.6 (21.8-53.1) % Monocytes % 7.2 (5.3-12.2) % Eosinophils % 1.8 (0.8-7.0) % Basophils % 0.6 (0.2-1.2) % Absolute Granulocytes 2.65 (1.78-5.38) x10^3/uL Basophils # 0.03 (0.01-0.08) x10^3/uL D-Dimer (0.0-0.50) mg/L Sodium (135-145) mmol/L Potassium (3.5-5.1) mmol/L Chloride (98-107) mmol/L Carbon Dioxide (22-30) mmol/L Anion Gap (5-15) MEQ/L BUN (9-20) mg/dL Creatinine (0.66-1.25) mg/dL Estimated GFR ML/MIN Glucose (74-106) mg/dL Calcium (8.4-10.2) mg/dL Total Bilirubin (0.2-1.3) mg/dL AST (17-59) U/L ALT (0-50) U/L Alkaline Phosphatase (38-126) U/L Troponin I (0.000-0.033) ng/mL Serum Total Protein (6.3-8.2) g/dL Albumin (3.5-5.0) g/dL - Progress Progress: unchanged Air Movement: good Progress Note: Patient was stable throughout stay. His D-dimer was not elevated I do not think he is a pulmonary embolism. His cardiac workup was all negative. His EKG and troponin were not elevated. Chest x-ray was clear. I think that he basically has pleurisy. I will give him some Indocin to take at home. He is to follow-up with his primary care doctor and return if symptoms worsen. 05/14/25 16:02 - Departure Departure Disposition: Home Clinical Impression: Pleurisy Condition: Stable Critical Care Time: No Referrals: DEVONTE CRABTREE MD [Primary Care Provider, [facility]] - Follow up/PCP as directed Instructions: Atypical Chest Pain
--- NOTE | 2025-05-14 14:09 | XRAY ---
Indication: Chest pain. Comparison: March 20, 2022 Portable chest better inflated and is now clear. Again chronic mild right hemidiaphragm elevation. Heart not enlarged again with small right hilar calcified nodes. Bony thorax intact. No new/acute findings.
[2025-05-14 14:23] LABS: Calcium 9.3 mg/dL (8.4-10.2); Carbon Dioxide 22.0 mmol/L (22-30); Creatinine 1 1.07 mg/dL (0.66-1.25); EST GLOMERULAR FILTRATION RATE 81.4 ML/MIN; Glucose 103.0 mg/dL (74-106); Potassium 3.9 mmol/L (3.5-5.1); SGOT/AST 37.0 U/L (17-59); SGPT/ALT 32.0 U/L (0-50); Total Protein 7.6 g/dL (6.3-8.2)
[2025-05-14 16:04] VITALS: O2SAT 97
[2025-05-14 16:21] VITALS: BP 111/89; PULSE 52; RESP 12
== END 2025-05-14 16:21 | disposition home or self-care (01) ==
LOC: ED 13:19
DX: R09.1 Pleurisy (principal); I10 Essential (primary) hypertension; Z79.899 Other long term (current) drug therapy